=== PATIENT | female | born 1980 | race Caucasian/White ===

== ENCOUNTER 2017-05-18 19:01 | Emergency (ER) | payer OTHER ==
[2017-05-18 19:22] VITALS: BP 149/95; PULSE 90; TEMP 98.2; BMI 41.0
--- NOTE | 2017-05-18 19:28 | PDOC ---
Rapid Medical Evaluation Chief Complaint: Cold Symptoms Time Seen by Provider: 05/18/17 19:27 Medical Evaluation: Allergies Allergy/AdvReac Type Severity Reaction Status Date / Time shellfish derived Allergy Verified 10/19/15 18:31 Vital Signs Temp Pulse Resp BP Pulse Ox 98.2 F 90 20 149/95 99 05/18/17 19:17 05/18/17 19:17 05/18/17 19:17 05/18/17 19:17 05/18/17 19:17 05/18/17 19:28 The patient presents with a chief complaint of: [Cough] I have performed a brief in-person evaluation of this patient. Pertinent physical exam findings: vss, [Lungs clear. I have ordered the following: [None] The patient will proceed to the ED for further evaluation. Discharge Disposition - Diagnosis Cough - Referrals - Patient Instructions - Post Discharge Activity
--- NOTE | 2017-05-18 20:21 | PDOC ---
History of Present Illness - General Chief Complaint: Cold Symptoms Stated Complaint: COUGHING Time Seen by Provider: 05/18/17 19:27 History Source: Patient Exam Limitations: No Limitations - History of Present Illness Initial Comments: 05/18/17 20:24 36-year-old female with a history of asthma presents to the emergency department complaining of rhinorrhea, nasal congestion, intermittent nonproductive cough, postnasal drip without fever, chills, nausea/vomiting, headache, dizziness, lightheadedness, facial pain, earache, sore throat, chest pain, shortness of breath, abdominal pains, flank pains, urinary symptoms. Patient states approximately 8 days ago, she had one day of fever/102.0 but subsided after taken one dose of Tylenol. Timing/Duration: reports: yesterday Associated Symptoms: reports: nasal congestion, nasal drainage Past History - Past Medical History Allergies/Adverse Reactions: Allergies Allergy/AdvReac Type Severity Reaction Status Date / Time shellfish derived Allergy Verified 10/19/15 18:31 Home Medications: Ambulatory Orders Azithromycin [Zithromax -] 250 mg PO UTDICT #6 tab 05/18/17 Asthma: Yes COPD: No - Suicide/Smoking/Psychosocial Hx Smoking History: Current every day smoker Have you smoked in the past 12 months: Yes Number of Cigarettes Smoked Daily: 10 Information on smoking cessation initiated: No Hx Alcohol Use: No Drug/Substance Use Hx: No Substance Use Type: None Review of Systems - Review of Systems Able to Perform ROS?: Yes Comments:: 05/18/17 20:18 CONSTITUTIONAL: +malaise Absent: fever, chills, diaphoresis, generalized weakness, loss of appetite HEENT: +rhinorrhea, nasal congestion Absent: throat pain, throat swelling, difficulty swallowing, mouth swelling, ear pain, eye pain, visual Changes CARDIOVASCULAR: Absent: chest pain, loss of consciousness, palpitations, irregular heart rate, peripheral edema RESPIRATORY: +cough Absent: shortness of breath, dyspnea with exertion, orthopnea, wheezing, stridor , hemoptysis GASTROINTESTINAL: Absent: abdominal pain, abdominal distension, nausea, vomiting, diarrhea, constipation, melena, hematochezia GENITOURINARY: Absent: dysuria, frequency, urgency, hesitancy, hematuria, flank pain, genital pain MUSCULOSKELETAL: Absent: myalgia, arthralgia, joint swelling SKIN: Absent: rash, itching, pallor Is the patient limited [place] proficient: No *Physical Exam - Vital Signs Last Vital Signs Temp Pulse Resp BP Pulse Ox 98.2 F 90 20 149/95 99 05/18/17 19:17 05/18/17 19:17 05/18/17 19:17 05/18/17 19:17 05/18/17 19:17 - Physical Exam Comments: 05/18/17 20:19 GENERAL: Well developed, well nourished. Awake and alert. No acute distress. HEENT: Normocephalic, atraumatic. PERRLA, EOMI. No conjunctival pallor. Sclera are non- icteric. Moist mucous membranes. Oropharynx is clear. NECK: Supple. Full ROM. No JVD. Carotid pulses 2+ and symmetric, without bruits. No thyromegaly. No lymphadenopathy. CARDIOVASCULAR: Regular rate and rhythm. No murmurs, rubs, or gallops. Distal pulses are 2+ and symmetric. PULMONARY: No evidence of respiratory distress. Lungs clear to auscultation bilaterally. No wheezing, rales or rhonchi. ABDOMINAL: Soft. Non-tender. Non-distended. No rebound or guarding. No organomegaly. Normoactive bowel sounds. MUSCULOSKELETAL Normal range of motion at all joints. No bony deformities or tenderness. No CVA tenderness. EXTREMITIES: No cyanosis. No clubbing. No edema. No calf tenderness. SKIN: Warm and dry. Normal capillary refill. No rashes. No jaundice. Medical Decision Making - Medical Decision Making 05/18/17 20:25 36-year-old female with a history of asthma presents to the ER complaining of postnasal drip, nasal congestion, rhinorrhea, cough without fever, chills. Physical exam was consistent with bronchitis. Prescriptions sent to patient's pharmacy for Zithromax pack. Patient advised to take it when symptoms worsen. *DC/Admit/Observation/Transfer Diagnosis at time of Disposition: Cough, Bronchitis - Discharge Dispostion Disposition: HOME Condition at time of disposition: Stable Admit: No - Prescriptions Prescriptions: Azithromycin [Zithromax -] 250 mg PO UTDICT #6 tab - Referrals Referrals: Janie Carmona MD [Primary Care Provider] - - Patient Instructions Printed Discharge Instructions: DI for Acute Bronchitis Additional Instructions: Rest Supportive care Robitussin every 6 hours for cough as needed Follow up with your physician within 48 hours Return to the ER for severe/persistent/worsening symptoms - Post Discharge Activity
== END 2017-05-18 20:24 | disposition home or self-care (01) ==
LOC: JERFT 19:01
DX: J20.9 Acute bronchitis, unspecified (principal)
CPT/HCPCS: 99281-25

== ENCOUNTER 2018-10-18 13:39 | Emergency (ER) | payer OTHER ==
[2018-10-18 13:53] VITALS: BP 143/80; PULSE 90; TEMP 98.6; BMI 45.8
--- NOTE | 2018-10-18 13:53 | PDOC ---
Rapid Medical Evaluation Chief Complaint: Back Pain Time Seen by Provider: 10/18/18 13:48 Medical Evaluation: Allergies Allergy/AdvReac Type Severity Reaction Status Date / Time shellfish derived Allergy Verified 10/19/15 18:31 10/18/18 13:49 I have performed a brief in-person evaluation of this patient. The patient presents with a chief complaint of: obese patient with 2 weeks h/o lower back pain worse when getting up from sitting position. Denies trauma or h/ o back pains. Denies urinary symptoms but report increased bowel movements. Denies radiculopathy. Denies incontinence or saddle paresthesia. LMP 5 days ago. Pertinent physical exam findings: mild TTP over lower sacrum and right paracervical muscle of lumber spine I have ordered the following: UA, UHCG, UCx The patient will proceed to the ED for further evaluation Discharge Disposition - Diagnosis Lumbago Qualifiers: Chronicity: acute Back pain laterality: right Sciatica presence: without sciatica Qualified Code(s): M54.5 - Low back pain - Discharge Dispostion Condition at time of disposition: Stable - Referrals - Patient Instructions - Post Discharge Activity
[2018-10-18] MEDS ORDERED: KETOROLAC TROMETHAMINE 60 MG/2 ML VIAL IM ONE (14:05)
[2018-10-18] MEDS ORDERED: KETOROLAC TROMETHAMINE 60 MG/2 ML VIAL ONE (14:08)
--- NOTE | 2018-10-18 14:10 | PDOC ---
History of Present Illness - General Chief Complaint: Back Pain Stated Complaint: LWR BACK PAIN Time Seen by Provider: 10/18/18 13:48 History Source: Patient - History of Present Illness Occurred: reports: other Pain Location: reports: back Past History - Past Medical History Allergies/Adverse Reactions: Allergies Allergy/AdvReac Type Severity Reaction Status Date / Time shellfish derived Allergy Verified 10/19/15 18:31 Home Medications: Ambulatory Orders Albuterol Sulfate [Albuterol Sulfate Hfa] 8.5 gm IH PRN PRN 08/31/18 Cyclobenzaprine HCl [Flexeril 10 mg] 10 mg PO TID #9 tablet 10/18/18 Ibuprofen [Motrin -] 800 mg PO Q6H #30 tablet 10/18/18 Anemia: No Asthma: Yes Cancer: No Cardiac Disorders: No CVA: No COPD: No CHF: No Dementia: No Diabetes: No GI Disorders: No Disorders: No HTN: No Hypercholesterolemia: No Liver Disease: No Seizures: No Thyroid Disease: No - Suicide/Smoking/Psychosocial Hx Smoking History: Current every day smoker Have you smoked in the past 12 months: No Number of Cigarettes Smoked Daily: 3 Information on smoking cessation initiated: No Hx Alcohol Use: No Drug/Substance Use Hx: No Substance Use Type: None Hx Substance Use Treatment: No Review of Systems - Review of Systems Constitutional: No: Chills, Fever ABD/GI: No: Nausea, Vomiting Musculoskeletal: Yes: Back Pain Neurological: No: Numbness, Tingling, Weakness *Physical Exam - Vital Signs Last Vital Signs Temp Pulse Resp BP Pulse Ox 98.6 F 90 20 143/80 100 10/18/18 13:48 10/18/18 13:48 10/18/18 13:48 10/18/18 13:48 10/18/18 13:48 - Physical Exam General Appearance: Yes: Appropriately Dressed. No: Apparent Distress HEENT: positive: Normal Voice Neck: positive: Supple Respiratory/Chest: negative: Respiratory Distress Gastrointestinal/Abdominal: positive: Soft. negative: Tender Musculoskeletal: negative: CVA Tenderness, Vertebral Tenderness Integumentary: positive: Dry, Warm Neurologic: positive: Fully Oriented, Alert, Normal Mood/Affect Medical Decision Making - Medical Decision Making 10/18/18 15:05 38-year-old morbidly obese female, renal stone, here with back pain. Patient states for the past 2-1/2 weeks, she has had non-radiating, sharp lower back pain that worsens when she is sitting or standing for long periods of time. No sensory changes, LE weakness, saddle anesthesia or bowel or bladder incontinence. No recent trauma. Denies flank pain, dysuria, hematuria, nausea , vomiting, fever or chills. Taking [id number] meds with no relief. No prior history of back pain. Does not feel like her renal colic see exam M/l MSK pain, obesity might be contributing factor No red flags in ER -UA/upreg neg -dose of toradol here -dc w/ pain control and PMD f/u *DC/Admit/Observation/Transfer Diagnosis at time of Disposition: Low back pain Qualifiers: Chronicity: acute Back pain laterality: right Sciatica presence: without sciatica Qualified Code(s): M54.5 - Low back pain - Discharge Dispostion Disposition: HOME Condition at time of disposition: Improved - Prescriptions Prescriptions: Cyclobenzaprine HCl [Flexeril 10 mg] 10 mg PO TID #9 tablet Ibuprofen [Motrin -] 800 mg PO Q6H #30 tablet - Referrals Referrals: Janie Carmona MD [Primary Care Provider] - - Patient Instructions Printed Discharge Instructions: DI for Low Back Pain Additional Instructions: Please take medications as prescribed and follow-up with your doctor - Post Discharge Activity Forms/Work/School Notes: Back to Work
[2018-10-18 14:54] LABS: HCG,QUALITATIVE URINE Negative
[2018-10-18 15:01] LABS: PH,URINE 5.5 (5.0-8.0); URINE APPEARANCE CLEAR; URINE BILIRUBIN NEGATIVE (NEGATIVE); URINE COLOR YELLOW; URINE GLUCOSE (UA) NEGATIVE (NEGATIVE); URINE KETONE NEGATIVE (NEGATIVE); URINE LEUK ESTERASE NEGATIVE (NEGATIVE); URINE NITRITE NEGATIVE (NEGATIVE); URINE PROTEIN NEGATIVE (NEGATIVE); URINE UROBILINOGEN 0.2 mg/dL (0.2-1.0)
== END 2018-10-18 15:17 | disposition home or self-care (01) ==
LOC: JERFT 13:39
PROC: 3E0233Z Introduction of Anti-inflammatory into Muscle, Percutaneous Approach (ICD-10-PCS; principal; 2018-10-18)
DX: M54.5 Low back pain (principal); J45.909 Unspecified asthma, uncomplicated; F17.210 Nicotine dependence, cigarettes, uncomplicated; Z87.442 Personal history of urinary calculi
CPT/HCPCS: 81003; 84703; 87086; 96372; 99281-25

== ENCOUNTER 2018-12-16 21:47 | Emergency (ER) | payer OTHER ==
[2018-12-16 22:21] VITALS: BP 117/91; PULSE 105; TEMP 98.6; BMI 46.6
--- NOTE | 2018-12-17 00:28 | PDOC ---
History of Present Illness - General Chief Complaint: Injury Stated Complaint: FALL Time Seen by Provider: 12/17/18 00:27 History Source: Patient Exam Limitations: No Limitations - History of Present Illness Initial Comments: 12/17/18 04:01 Maryuri Schmitt is a 38yF w PMHx HTN presenting w L foot pain. Last night, was dancing, tripped and twisted L foot while falling down. Denies LOC, head trauma. Subsequent L foot swelling, tenderness especially at 5th MTP joint of L foot. Able to ambulate after fall. Denies fever, headache, chest/AB pain, urinary/bowel changes. Past History - Past Medical History Allergies/Adverse Reactions: Allergies Allergy/AdvReac Type Severity Reaction Status Date / Time shellfish derived Allergy Verified 12/16/18 22:21 Home Medications: Ambulatory Orders Albuterol Sulfate [Albuterol Sulfate Hfa] 8.5 gm IH PRN PRN 08/31/18 Cyclobenzaprine HCl [Flexeril 10 mg] 10 mg PO TID #9 tablet 10/18/18 Ibuprofen [Motrin -] 800 mg PO Q6H #30 tablet 10/18/18 Anemia: No Asthma: Yes Cancer: No Cardiac Disorders: No CVA: No COPD: No CHF: No Dementia: No Diabetes: No GI Disorders: No Disorders: No HTN: No Hypercholesterolemia: No Liver Disease: No Seizures: No Thyroid Disease: No - Suicide/Smoking/Psychosocial Hx Smoking History: Never smoked Have you smoked in the past 12 months: No Number of Cigarettes Smoked Daily: 3 Information on smoking cessation initiated: No Hx Alcohol Use: Yes (socia) Drug/Substance Use Hx: No Substance Use Type: None Hx Substance Use Treatment: No Review of Systems - Review of Systems Constitutional: No: Chills, Fever HEENTM: No: Eye Pain, Nose Pain, Throat Pain Respiratory: No: Cough, Shortness of Breath Cardiac (ROS): No: Chest Pain, Irregular Heart Rate, Syncope ABD/GI: No: Abdominal Distended, Constipated, Diarrhea, Nausea, Vomiting : No: Burning, Dysuria Musculoskeletal: No: Back Pain, Joint Pain, Muscle Pain, Muscle Weakness Integumentary: No: Bruising, Flushing, Lesions Neurological: No: Headache, Paresthesia, Tingling, Tremors Psychiatric: No: Anxiety, Depression Endocrine: No: Excessive Sweating, Intolerance to Cold, Intolerance to Heat Hematologic/Lymphatic: No: Anemia, Blood Clots, Easy Bleeding *Physical Exam - Vital Signs Last Vital Signs Temp Pulse Resp BP Pulse Ox 98.6 F 105 H 18 117/91 100 12/16/18 22:17 12/16/18 22:17 12/16/18 22:17 12/16/18 22:17 12/16/18 22:17 - Physical Exam General Appearance: Yes: Nourished, Appropriately Dressed, Moderate Distress HEENT: positive: EOMI, XAVI, Normal Voice, Hearing Grossly Normal. negative: Scleral Icterus (R), Scleral Icterus (L) Respiratory/Chest: positive: Lungs Clear, Normal Breath Sounds. negative: Chest Tender, Respiratory Distress, Crackles, Rales, Rhonchi, Stridor Cardiovascular: positive: Regular Rhythm, Regular Rate, S1, S2. negative: Edema , Murmur Musculoskeletal: positive: Normal Inspection Extremity: positive: Normal Capillary Refill, Other (L foot +1 pedal edema, tenderness over dorsal aspect of L foot, no tenderness over lateral/medial malleoli. Minimal ecchymosis. No warmth. No skin breakage. Limited toe ROM d/t pain. 3+ DP pulses bilaterally. Equal sensation nazanin. 5/5 strength bilaterally) Integumentary: positive: Normal Color Neurologic: positive: fluoroscope operator II-XII NML intact, Fully Oriented, Alert, Normal Mood/ Affect, Normal Response, Respond to painful stimul. negative: Sensory Deficit, Confused, Disoriented Medical Decision Making - Medical Decision Making 12/17/18 01:04 tylenol for pain Maryuri Schmitt is a 38yF w PMHx HTN presenting w L foot pain s/p mechanical fall. Neurovascular intact. L foot/ankle XR did not show any fracture/subluxation. Given tylenol for pain, tyson wrapped and placed foot in boot. D/c home w RICE instructions, ortho f/u *DC/Admit/Observation/Transfer Diagnosis at time of Disposition: Foot pain, left Fall Qualifiers: Encounter type: initial encounter Qualified Code(s): W19.XXXA - Unspecified fall, initial encounter - Discharge Dispostion Disposition: HOME Condition at time of disposition: Good Decision to Admit order: No - Referrals Referrals: Janie Carmona MD [Primary Care Provider] - Favian Jefferson DO [Staff Physician] - - Patient Instructions Printed Discharge Instructions: DI for Foot Pain Additional Instructions: You were seen for left foot pain. Your x-ray did not show any fracture or dislocation. You were given pain medication, wrapped your foot, and given a surgical boot and crutches. Make an appointment with your primary care doctor or Dr Jefferson orthopedics to follow up. Please wrap your foot with tyson bandage, ice it every 15 minutes, elevate your foot when possible, and take tylenol and ibuprofen for pain. Come back to the ED if you have worsening pain, cannot walk, or have numbness. - Post Discharge Activity
[2018-12-17] MEDS ORDERED: ACETAMINOPHEN 500 MG TABLET (FP) PO ONE (01:00)
[2018-12-17] MEDS ORDERED: ACETAMINOPHEN 325 MG TABLET (FP) ONE (01:16)
--- NOTE | 2018-12-17 01:16 | PDOC ---
Attending Attestation - Resident Resident Name: Anish Cole - ED Attending Attestation I have performed the following: I have examined & evaluated the patient, The case was reviewed & discussed with the resident, I agree w/resident's findings & plan, Exceptions are as noted - HPI HPI: 12/17/18 01:11 38yo female with L foot and ankle inversion injury tonight. Pt with swelling and ecchymosis across dorsum of foot. Pt states pain with ambulation. No ankle ttp. No leg pain. Pt admits to drinking earlier tonight - 3 drinks and was out dancing when this happened. Pt denies hitting her head or loc. Pt denies all other complaints. FDLMP - day weekend - Physicial Exam PE: 12/17/18 01:13 Gen: aaox3, nad heart: +s1s2 reg lungs: cta b/l abd: soft, nt/nd, obese ext: no calf ttp, L foot dorsum with ecchymosis and swelling across dorsum of the foot with ttp over digits 2-5 metatarsals. No ttp over b/l malleolus. FROM of the ankle without pain. pedal pulses intact, sensation intact - Medical Decision Making 12/17/18 01:14 a/p: 38yo female with foot injury while dancing -swelling and ecchymosis -xray ordered does not show acute fx -ice bag placed, will add tyson wrap, will place in surgical shoe with crutches -pt will need orthopedic follow up -tylenol ordered -discussed xray findings with the patient -pt stable for dc to home and follow up with orthopedics
== END 2018-12-17 01:50 | disposition home or self-care (01) ==
LOC: JER 21:47
DX: M79.672 Pain in left foot (principal); X58.XXXA Exposure to other specified factors, initial encounter; Y93.41 Activity, dancing; Y92.89 Other specified places as the place of occurrence of the external cause; I10 Essential (primary) hypertension
CPT/HCPCS: 73610-TC-LT-FY; 73630-TC-LT; 99282-25

== ENCOUNTER 2019-12-25 01:05 | Inpatient (IN) | payer OTHER ==
--- OUTSIDE RECORDS SUMMARY | 2019-12-25 01:25 | XMS ---
:1980 Author Organization [facility] Care Team Providers Name Role Phone Debi Jaquez MD Unavailable Unavailable French Lambert MD Unavailable Unavailable Lise Sauer NP Unavailable Unavailable HELLEN MCMAHAN Unavailable Unavailable Esdras Barboza MD Unavailable Unavailable Sandra Valle MD Unavailable Unavailable Re-disclosure Warning The records that you are about to access may contain information from federally- assisted alcohol or drug abuse programs. If such information is present, then the following federally mandated warning applies: This information has been disclosed to you from records protected by federal confidentiality rules (42 CFR part 2). The federal rules prohibit you from making any further disclosure of this information unless further disclosure is expressly permitted by the written consent of the person to whom it pertains or as otherwise permitted by 42 CFR part 2. A general authorization for the release of medical or other information is NOT sufficient for this purpose. The Federal rules restrict any use of the information to criminally investigate or prosecute any alcohol or drug abuse patient.The records that you are about to access may contain highly sensitive health information, the redisclosure of which is protected by Article 27-F of the [facility] Public [facility] law. If you continue you may haveaccess to information: Regarding HIV / AIDS; Provided by facilities licensed or operated by the [facility] Office of Mental Health; or Provided by the [facility] Office for People With Developmental Disabilities. If such information is present, then the following [facility] mandated warning applies: This information has been disclosed to you from confidential records which are protected by state law. State law prohibits you from making any further disclosure of this information without the specific written consent of the person to whom it pertains, or as otherwise permitted by law. Any unauthorized further disclosure in violation of state law may result in a fine or custodial sentence or both. A general authorization for the release of medical or other information is NOT sufficient authorization for further disclosure. Advance Directives Directive Description Ct Technician Pediatric Medical Assistant Status Observation Data S ource(s) Description Advance No completed [place] [facility] Advance No completed [place] [facility] Advance No completed [place] [facility] Allergies and Adverse Reactions Type Description Substance Reaction Status Data Source(s ) Food allergy shellfish derived shellfish FACE SWELLING-I [facility] Hospital Propensity to shellfish No known shortness of Active eCW3 ([facility] son adverse allergies breath [facility] reactions (situation) Care) Propensity to shellfish No known shortness of Active eCW3 ([facility] son adverse allergies breath [facility] reactions (situation) Care) Propensity to shellfish No known shortness of Active eCW3 ([facility] son adverse allergies breath [facility] reactions (situation) Care) Propensity to shellfish No known shortness of Active eCW3 ([facility] son adverse allergies breath [facility] reactions (situation) Care) Propensity to shellfish No known shortness of Active eCW3 ([facility] son adverse allergies breath [facility] reactions (situation) Care) Propensity to shellfish No known shortness of Active eCW3 ([facility] son adverse allergies breath [facility] reactions (situation) Care) Propensity to shellfish No known shortness of Active eCW3 ([facility] son adverse allergies breath [facility] reactions (situation) Care) Propensity to shellfish No known shortness of Active eCW3 ([facility] son adverse allergies breath [facility] reactions (situation) Care) Propensity to shellfish No known shortness of Active eCW3 ([facility] son adverse allergies breath [facility] reactions (situation) Care) Propensity to shellfish No known shortness of Active eCW3 ([facility] son adverse allergies breath [facility] reactions (situation) Care) Propensity to shellfish No known shortness of Active eCW3 ([facility] son adverse allergies breath [facility] reactions (situation) Care) Propensity to shellfish No known shortness of Active eCW3 ([facility] son adverse allergies breath [facility] reactions (situation) Care) Propensity to shellfish No known shortness of Active eCW3 ([facility] son adverse allergies breath [facility] reactions (situation) Care) Encounters Encounter Providers Location Date Indications Data Source(s ) Outpatient Attender: Esdras 05/19/2019 CHOLECYSTITIS Yogi Barboza MD 07:30:00 AM Hospital EST - 05/19/2019 07:08:00 AM EST CHOLECYSTITIS Patient discharged. 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 Outpatient [facility] 12/23/2018 eCW3 ([facility] on Care Clinic 12:00:00 AM EDT - [facility] A28 12/23/2018 Care) 12:00:00 AM EDT Inpatient Attender: 12/20/2018 MORBID OBESITY Yogi Barboza 09:15:00 AM EDT - [place] [place] MDAdmitter: 12/28/2018 Esdras Barboza 05:26:00 PM EDT MD MORBID OBESITY Patient discharged. 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 Subsequent [facility] 10/28/2018 12:00:00 e CW3 ([facility] A28 AM EDT - 10/28/2018 [facility] Nutrition 12:00:00 AM EDT Care) Outpatient [facility] 10/27/2018 12:00:00 e CW3 ([facility] A28 AM EDT - 10/27/2018 [facility] 12:00:00 AM EDT Care) A28-Est Therapy [facility] 10/04/2018 12:00:00 eCW3 ([facility] A28 AM EDT - 10/04/2018 [facility] Evaluation & Mgmt 12:00:00 AM EDT Ca re) 20-30 Min Subsequent [facility] 10/01/2018 12:00:00 e CW3 ([facility] A28 AM EDT - 10/01/2018 [facility] Nutrition 12:00:00 AM EDT Care) Outpatient [facility] 09/07/2018 12:00:00 e CW3 ([facility] A28 AM EDT - 09/07/2018 [facility] 12:00:00 AM EDT Care) Subsequent [facility] 09/03/2018 12:00:00 e CW3 ([facility] A28 AM EDT - 09/03/2018 [facility] Nutrition 12:00:00 AM EDT Care) Outpatient Admitter: 07/26/2018 10:21:00 [facility] AM EDT Medical Susannah De Oliveira Outpatient Admitter: 07/26/2018 12:00:00 [facility] AM EDT Medical Susannah De Oliveira Subsequent [facility] 07/22/2018 12:00:00 e CW3 ([facility] A28 AM EDT - 07/22/2018 [facility] Nutrition 12:00:00 AM EDT Care) Subsequent [facility] 06/17/2018 12:00:00 e CW3 ([facility] A28 AM EDT - 06/17/2018 [facility] Nutrition 12:00:00 AM EDT Care) (NBillable) [facility] 06/07/2018 12:00:00 eCW3 ([facility] A28 AM EST - 06/07/2018 [facility] g/Care Management 12:00:00 AM EST Ca re) (NBillable) [facility] 06/04/2018 12:00:00 eCW3 ([facility] A28 AM EST - 06/04/2018 [facility] g/Care Management 12:00:00 AM EST Ca re) (NBillable) [facility] 05/28/2018 12:00:00 eCW3 ([facility] A28 AM EST - 05/28/2018 [facility] g/Care Management 12:00:00 AM EST Ca re) New Therapy, 30 [facility] 05/21/2018 12:00:00 eCW3 ([facility] A28 AM EST - 05/21/2018 [facility] 12:00:00 AM EST Care) Functional Status Immunizations Vaccine Date Status Description Data Source(s) New in 2011. IIV4 03/09/2018 completed eCW3 ([facility] 03:21:00 PM [facility]) IIV3. This is one of 12/19/2016 completed eCW3 ([facility] [place] two codes replacing CVX 09:00:00 AM EDT [facility]) 15, which is being retired. IIV3. This vaccine code 02/01/2015 completed eCW3 ([facility] [place] is one of two which 12:03:[address] [facility]) replace CVX 15, influenza, split virus. IIV3. This is one of 01/07/2013 completed eCW3 ([facility] two codes replacing CVX 02:05:53 PM EDT [facility]) 15, which is being retired. Medications Medication Brand Start Product Dose Route Administrative Pharmacy [facility] Indications Reaction Description Data Name Date Form Instructions Instructions Source(s) Nystatin Nystat 08/01/ 1.0 active Nystatin e CW3 482646 in 2019 {appl 250663 ([facility] UNT/ML 602076 12:00: icati UNIT/GM [facility] UNIT/G 00 AM on} Health Cream [facility]) Nystatin 913177 UNIT/GM Acetaminoph Oxycod 05/19/ TABLET 1 ORAL active [place] en 325 MG / one/Ac 2019 {[place] s Oxycodone etamin 07:44: ule} Hospit al Hydrochlori ophen 00 AM de 5 MG EST Oral Tablet [Percocet] Oxycodone/A cetaminophe n Albuterol Albute 04/29/ 3.0 active Albuterol eCW3 0.83 MG/ML 2019 {ml_a Sulfate (2.5 ([facility] Inhalant Sulfat 12:00: s_nee MG/3ML) Va er Solution e (2.5 00 AM ded} 0.083% Health Albuterol MG/3ML EST Care) Sulfate ) (2.5 0.083% MG/3ML) 0.083% Albuterol Albute 3.0 active Albuterol eCW3 0.83 MG/ML rol 2020 {ml_a Sulfate (2.5 ([facility] Inhalant Sulfat 12:00: s_nee MG/3ML) Va er Solution e (2.5 00 AM ded} 0.083% Health Albuterol MG/3ML EST Care) Sulfate ) (2.5 0.083% MG/3ML) 0.083% Albuterol Albute .0 active Albuterol eCW3 0.83 MG/ML rol 2020 {ml_a Sulfate (2.5 ([facility] Inhalant Sulfat 12:00: s_nee MG/3ML) Va er Solution e (2.5 00 AM ded} 0.083% Health Albuterol MG/3ML EST Care) Sulfate ) (2.5 0.083% MG/3ML) 0.083% Albuterol Albute .0 active Albuterol eCW3 0.83 MG/ML rol 2020 {ml_a Sulfate (2.5 ([facility] Inhalant Sulfat 12:00: s_nee MG/3ML) Va er Solution e (2.5 00 AM ded} 0.083% Health Albuterol MG/3ML EST Care) Sulfate ) (2.5 0.083% MG/3ML) 0.083% Albuterol Albute 3.0 active Albuterol eCW3 0.83 MG/ML rol 2020 {ml_a Sulfate (2.5 ([facility] Inhalant Sulfat 12:00: s_nee MG/3ML) Va er Solution e (2.5 00 AM ded} 0.083% Health Albuterol MG/3ML EST Care) Sulfate ) (2.5 0.083% MG/3ML) 0.083% Albuterol Albute 3.0 active Albuterol eCW3 0.83 MG/ML rol 2019 {ml_a Sulfate (2.5 ([facility] Inhalant Sulfat 12:00: s_nee MG/3ML) Va er Solution e (2.5 00 AM ded} 0.083% Health Albuterol MG/3ML EST Care) Sulfate ) (2.5 0.083% MG/3ML) 0.083% Albuterol Albute 3.0 active Albuterol eCW3 0.83 MG/ML rol 2019 {ml_a Sulfate (2.5 ([facility] Inhalant Sulfat 12:00: s_nee MG/3ML) Va er Solution e (2.5 00 AM ded} 0.083% Health Albuterol MG/3ML EST Care) Sulfate ) (2.5 0.083% MG/3ML) 0.083% tramadol Tramad 12/28/ TABLET 50 mg ORAL complet [facility] allan hydrochlori ol Hcl 2018 ed [place] de 50 MG 11:07: Hospital Oral Tablet 00 AM Tramadol EDT Hcl tramadol Tramad 12/28/ TABLET 50 mg ORAL active Wh ite hydrochlori ol Hcl 2019 [place] de 50 MG 11:07: Hospital Oral Tablet 00 AM Tramadol EDT Hcl tramadol Tramad 12/28/ TABLET 50 mg ORAL complet [facility] [place] hydrochlori ol Hcl 2018 ed [place] de 50 MG 11:07: Hospital Oral Tablet 00 AM Tramadol EDT Hcl 0.4 ML Enoxap 12/28/ INJECTIO 40 mg SUBCUT complet [place] Enoxaparin frankie 2018 N ANEOUS ed [place] sodium 100 Sodium 11:03: [facility] [place] MG/ML 00 AM Prefilled EDT Syringe [Lovenox] Enoxaparin Sodium 0.4 ML Enoxap 12/28/ INJECTIO 40 mg SUBCUT active [place] Enoxaparin frankie 2018 N ANEOUS [place] sodium 100 Sodium 11:03: [facility] [place] MG/ML 00 AM Prefilled EDT Syringe [Lovenox] Enoxaparin Sodium Ondansetron Ondans 12/28/ TABLET 4 mg ORAL complet [place] 4 MG etron 2018 ed [place] Disintegrat Hcl 11:03: Hospit al ing Oral 00 AM Tablet EDT Ondansetron Hcl Ondansetron Ondans 12/28/ TABLET 4 mg ORAL active [place] 4 MG etron 2018 [place] Disintegrat Hcl 11:03: Hospit al ing Oral 00 AM Tablet EDT Ondansetron Hcl 0.4 ML Enoxap 12/28/ INJECTIO 40 mg SUBCUT complet [place] Enoxaparin frankie 2019 N ANEOUS ed [place] sodium 100 Sodium 11:03: [facility] [place] MG/ML 00 AM Prefilled EDT Syringe [Lovenox] Enoxaparin Sodium Ondansetron Ondans 12/28/ TABLET 4 mg ORAL complet [place] 4 MG etron 2019 ed [place] Disintegrat Hcl 11:03: Hospit al ing Oral 00 AM Tablet EDT Ondansetron Hcl Ibuprofen Ibupro 12/23/ active Ibuprofen eCW3 600 MG Oral fen 2019 600 MG ([place] Tablet 600 MG 12:00: [facility] 00 AM Health EDT Care) Ibuprofen Ibupro 12/23/ active Ibuprofen eCW3 600 MG Oral fen 2019 600 MG ([place] Tablet 600 MG 12:00: [facility] 00 AM Health EDT Care) Ibuprofen Ibupro 12/23/ active Ibuprofen eCW3 600 MG Oral fen 2019 600 MG ([place] Tablet 600 MG 12:00: [facility] 00 AM Health EDT Care) Ibuprofen Ibupro 12/23/ active Ibuprofen eCW3 600 MG Oral fen 2019 600 MG ([place] Tablet 600 MG 12:00: [facility] 00 AM Health EDT Care) Ibuprofen Ibupro 12/23/ active Ibuprofen eCW3 600 MG Oral fen 2019 600 MG ([place] Tablet 600 MG 12:00: [facility] 00 AM Health EDT Care) Ibuprofen Ibupro 12/23/ active Ibuprofen eCW3 600 MG Oral fen 2019 600 MG ([place] Tablet 600 MG 12:00: [facility] 00 AM Health EDT Care) Ibuprofen Ibupro 12/23/ active Ibuprofen eCW3 600 MG Oral fen 2019 600 MG ([place] Tablet 600 MG 12:00: [facility] 00 AM Health EDT Care) Ibuprofen Ibupro 12/23/ active Ibuprofen eCW3 600 MG Oral fen 2019 600 MG ([place] Tablet 600 MG 12:00: [facility] 00 AM Health EDT Care) 200 ACTUAT Ventol 07/25/ 2.0 active Ventolin HFA eCW3 Albuterol in HFA 2018 {puff 108 (90 ([facility] son 0.09 108 12:00: s_as_ Base) [facility] MG/ACTUAT (90 00 AM neede MCG/ACT Healt h Metered Base) EDT d} Care) Dose MCG/AC Inhaler T [Ventolin] Ventolin HFA 108 (90 Base) MCG/ACT 200 ACTUAT Ventol 2.0 active Ventolin HFA eCW3 Albuterol in HFA 2018 {puff 108 (90 ([place] son 0.09 108 12:00: s_as_ Base) [facility] MG/ACTUAT (90 00 AM neede MCG/ACT Healt h Metered Base) EDT d} Care) Dose MCG/AC Inhaler T [Ventolin] Ventolin HFA 108 (90 Base) MCG/ACT 200 ACTUAT Ventol 2.0 active Ventolin HFA eCW3 Albuterol in HFA 2018 {puff 108 (90 ([place] son 0.09 108 12:00: s_as_ Base) [facility] MG/ACTUAT (90 00 AM neede MCG/ACT Healt h Metered Base) EDT d} Care) Dose MCG/AC Inhaler T [Ventolin] Ventolin HFA 108 (90 Base) MCG/ACT 200 ACTUAT Ventol 2.0 active Ventolin HFA eCW3 Albuterol in HFA 2018 {puff 108 (90 ([place] son 0.09 108 12:00: s_as_ Base) [facility] MG/ACTUAT (90 00 AM neede MCG/ACT Healt h Metered Base) EDT d} Care) Dose MCG/AC Inhaler T [Ventolin] Ventolin HFA 108 (90 Base) MCG/ACT 200 ACTUAT Ventol 2.0 active Ventolin HFA eCW3 Albuterol in HFA 2018 {puff 108 (90 ([place] son 0.09 108 12:00: s_as_ Base) [facility] MG/ACTUAT (90 00 AM neede MCG/ACT Healt h Metered Base) EDT d} Care) Dose MCG/AC Inhaler T [Ventolin] Ventolin HFA 108 (90 Base) MCG/ACT 200 ACTUAT Ventol 2.0 active Ventolin HFA eCW3 Albuterol in HFA 2018 {puff 108 (90 ([place] son 0.09 108 12:00: s_as_ Base) [facility] MG/ACTUAT (90 00 AM neede MCG/ACT Healt h Metered Base) EDT d} Care) Dose MCG/AC Inhaler T [Ventolin] Ventolin HFA 108 (90 Base) MCG/ACT 200 ACTUAT Ventol 07/25/ 2.0 active Ventolin HFA eCW3 Albuterol in HFA 2018 {puff 108 (90 ([place] son 0.09 108 12:00: s_as_ Base) [facility] MG/ACTUAT (90 00 AM neede MCG/ACT Healt h Metered Base) EDT d} Care) Dose MCG/AC Inhaler T [Ventolin] Ventolin HFA 108 (90 Base) MCG/ACT EpiPen UNK 02/10/ suspend EpiPen 2-Marin eCW3 2-Marin 0.3 2013 ed 0.3 MG/0.3ML ([facility] MG/0.3ML 12:00: (1:1000) [facility] (1:1000) 00 AM Health EST Care) EpiPen UNK 02/10/ suspend EpiPen 2-Marin eCW3 2-Marin 0.3 2012 ed 0.3 MG/0.3ML ([facility] MG/0.3ML 12:00: (1:1000) [facility] (1:1000) 00 AM Health EST Care) EpiPen UNK 02/10/ suspend EpiPen 2-Marin eCW3 2-Marin 0.3 2013 ed 0.3 MG/0.3ML ([facility] MG/0.3ML 12:00: (1:1000) [facility] (1:1000) 00 AM Health EST Care) EpiPen UNK 02/10/ suspend EpiPen 2-Marin eCW3 2-Marin 0.3 2013 ed 0.3 MG/0.3ML ([facility] MG/0.3ML 12:00: (1:1000) [facility] (1:1000) 00 AM Health EST Care) EpiPen UNK 02/10/ suspend EpiPen 2-Marin eCW3 2-Marin 0.3 2013 ed 0.3 MG/0.3ML ([facility] MG/0.3ML 12:00: (1:1000) [facility] (1:1000) 00 AM Health EST Care) EpiPen UNK 02/10/ suspend EpiPen 2-Marin eCW3 2-Marin 0.3 2013 ed 0.3 MG/0.3ML ([facility] MG/0.3ML 12:00: (1:1000) [facility] (1:1000) 00 AM Health EST Care) EpiPen UNK 02/10/ suspend EpiPen 2-Marin eCW3 2-Marin 0.3 2012 ed 0.3 MG/0.3ML ([facility] MG/0.3ML 12:00: (1:1000) [facility] (1:1000) 00 AM Health EST Care) EpiPen UNK 02/10/ suspend EpiPen 2-Marin eCW3 2-Marin 0.3 2012 ed 0.3 MG/0.3ML (H [facility] MG/0.3ML 12:00: (1:1000) [facility] (1:1000) 00 AM Health EST Care) EpiPen UNK 02/10/ suspend EpiPen 2-Marin eCW3 2-Marin 0.3 2012 ed 0.3 MG/0.3ML ([facility] MG/0.3ML 12:00: (1:1000) [facility] (1:1000) 00 AM Health EST Care) EpiPen UNK 02/10/ suspend EpiPen 2-Marin eCW3 2-Marin 0.3 2012 ed 0.3 MG/0.3ML ([facility] MG/0.3ML 12:00: (1:1000) [facility] (1:1000) 00 AM Health EST Care) EpiPen UNK 02/10/ suspend EpiPen 2-Marin eCW3 2-Marin 0.3 2012 ed 0.3 MG/0.3ML ([facility] MG/0.3ML 12:00: (1:1000) [facility] (1:1000) 00 AM Health EST Care) EpiPen UNK 02/10/ suspend EpiPen 2-Marin eCW3 2-Marin 0.3 2012 ed 0.3 MG/0.3ML (H ud[facility] MG/0.3ML 12:00: (1:1000) [facility] (1:1000) 00 AM Health EST Care) EpiPen UNK 02/10/ suspend EpiPen 2-Marin eCW3 2-Marin 0.3 2012 ed 0.3 MG/0.3ML ([facility] MG/0.3ML 12:00: (1:1000) [facility] (1:1000) 00 AM Health EST Care) Nebulizer UNK 01/07/ suspend Nebulizer eCW3 2012 ed ([facility] 12:00: [facility] 00 AM Health EDT Care) Nebulizer UNK 01/07/ suspend Nebulizer eCW3 2012 ed ([facility] 12:00: [facility] 00 AM Health EDT Care) Nebulizer UNK 01/07/ suspend Nebulizer eCW3 2012 ed ([facility] 12:00: [facility] 00 AM Health EDT Care) Nebulizer UNK 01/07/ suspend Nebulizer eCW3 2012 ed ([place] 12:00: [facility] 00 AM Health EDT Care) Albuterol Albute 2.0 suspend Albutero l eCW3 Sulfate HFA rol 2013 {puff ed Sulfate HFA ([facility] 108 (90 Sulfat 12:00: s} 108 (90 [facility] Base) e HFA 00 AM Base) Health MCG/ACT 108 EDT MCG/ACT Care) (90 Base) MCG/AC T Albuterol Albute 2.0 suspend Albutero l eCW3 Sulfate HFA rol 2013 {puff ed Sulfate HFA ([facility] 108 (90 Sulfat 12:00: s} 108 (90 [facility] Base) e HFA 00 AM Base) Health MCG/ACT 108 EDT MCG/ACT Care) (90 Base) MCG/AC T Albuterol Albute 2.0 suspend Albutero l eCW3 Sulfate HFA rol 2013 {puff ed Sulfate HFA ([facility] 108 (90 Sulfat 12:00: s} 108 (90 [facility]) e HFA 00 AM Base) Health MCG/ACT 108 EDT MCG/ACT Care) (90 Base) MCG/AC T Albuterol UNK 2.0 suspend Albuterol eCW3 Sulfate HFA 2013 {puff ed Sulfate HFA ([facility] 108 (90 12:00: s} 108 (90 [facility]) 00 AM Base) Health MCG/ACT EDT MCG/ACT Care) Nebulizer UNK 01/07/ suspend Nebulizer eCW3 2012 ed ([place] 12:00: [facility] 00 AM Health EDT Care) Albuterol UNK 2.0 suspend Albuterol eCW3 Sulfate HFA 2012 {puff ed Sulfate HFA ([facility] 108 (90 12:00: s} 108 (90 [facility]) 00 AM Base) Health MCG/ACT EDT MCG/ACT Care) Nebulizer UNK 01/07/ suspend Nebulizer eCW3 2012 ed ([facility] 12:00: [facility] 00 AM Health EDT Care) Nebulizer UNK 01/07/ suspend Nebulizer eCW3 2012 ed ([place] 12:00: [facility] 00 AM Health EDT Care) 200 ACTUAT Albute 2.0 suspend Albuter ol eCW3 Albuterol rol 2012 {puff ed Sulfate HFA (H ud[facility] 0.09 Sulfat 12:00: s} 108 (90 [facility] MG/ACTUAT e HFA 00 AM Base) Health Metered 108 EDT MCG/ACT Care) Dose (90 Inhaler Base) Albuterol MCG/AC Sulfate HFA T 108 (90 Base) MCG/ACT Albuterol Albute 2.0 suspend Albutero l eCW3 Sulfate HFA rol 2013 {puff ed Sulfate HFA ([facility] 108 (90 Sulfat 12:00: s} 108 (90 [facility]) e HFA 00 AM Base) Health MCG/ACT 108 EDT MCG/ACT Care) (90 Base) MCG/AC T Albuterol UNK 2.0 suspend Albuterol eCW3 Sulfate HFA 2012 {puff ed Sulfate HFA ([facility] 108 (90 12:00: s} 108 (90 [facility]) 00 AM Base) Health MCG/ACT EDT MCG/ACT Care) Albuterol Albute 2.0 suspend Albutero l eCW3 Sulfate HFA rol 2012 {puff ed Sulfate HFA ([facility] 108 (90 Sulfat 12:00: s} 108 (90 [facility]) e HFA 00 AM Base) Health MCG/ACT 108 EDT MCG/ACT Care) (90 Base) MCG/AC T Nebulizer UNK 01/07/ suspend Nebulizer eCW3 2012 ed ([facility] 12:00: [facility] 00 AM Health EDT Care) Nebulizer UNK 01/07/ suspend Nebulizer eCW3 2012 ed ([place] 12:00: [facility] 00 AM Health EDT Care) Nebulizer UNK 01/07/ suspend Nebulizer eCW3 2012 ed ([place] 12:00: [facility] 00 AM Health EDT Care) Nebulizer UNK 01/07/ suspend Nebulizer eCW3 2012 ed ([place] 12:00: [facility] 00 AM Health EDT Care) Nebulizer UNK 01/07/ suspend Nebulizer eCW3 2012 ed ([place] 12:00: [facility] 00 AM Health EDT Care) Albuterol Albute 2.0 suspend Albutero l eCW3 Sulfate HFA rol 2012 {puff ed Sulfate HFA ([facility] 108 (90 Sulfat 12:00: s} 108 (90 [facility]) e HFA 00 AM Base) Health MCG/ACT 108 EDT MCG/ACT Care) (90 Base) MCG/AC T Nebulizer UNK 01/07/ suspend Nebulizer eCW3 2012 ed ([place] 12:00: [facility] 00 AM Health EDT Care) Albuterol Albute 2.0 suspend Albutero l eCW3 Sulfate HFA rol 2013 {puff ed Sulfate HFA ([facility] 108 (90 Sulfat 12:00: s} 108 (90 [facility] Base) e HFA 00 AM Base) Health MCG/ACT 108 EDT MCG/ACT Care) (90 Base) MCG/AC T Albuterol Albute 2.0 suspend Albutero l eCW3 Sulfate HFA rol 2012 {puff ed Sulfate HFA ([place] 108 (90 Sulfat 12:00: s} 108 (90 [facility]) e HFA 00 AM Base) Health MCG/ACT 108 EDT MCG/ACT Care) (90 Base) MCG/AC T 200 ACTUAT Albute 2.0 suspend Albuter ol eCW3 Albuterol rol 2012 {puff ed Sulfate HFA (H udson 0.09 Sulfat 12:00: s} 108 (90 [facility] MG/ACTUAT e HFA 00 AM Base) Health Metered 108 EDT MCG/ACT Care) Dose (90 Inhaler Base) Albuterol MCG/AC Sulfate HFA T 108 (90 Base) MCG/ACT 200 ACTUAT Ventol 2.0 active Ventolin H FA eCW3 Albuterol in HFA {puff 108 (90 ([place] son 0.09 108 s_as_ Base) [facility] MG/ACTUAT (90 neede MCG/ACT Health Metered Base) d} Care) Dose MCG/AC Inhaler T [Ventolin] Ventolin HFA 108 (90 Base) MCG/ACT Albuterol AEROSOL, 2 RESPIR active Wh ite SPRAY [facility] ([facility]) Nicotine Nicoti SPRAY complet [facility] Albuterol Albute 3 mL RESPIR active Whit e 0.83 MG/ML rol [facility] Inhalant Sulfat ([facility] Albuterol Sulfate Nystatin Nystat 1.0 active Nystatin eCW 3 570376 in {appl [id number] ([place] UNT/ML 770936 icati UNIT/GM [place] Topical UNIT/G on} Health [facility]) Nystatin 319482 UNIT/GM 200 ACTUAT Ventol 2.0 active Ventolin H FA eCW3 Albuterol in HFA {puff 108 (90 ([place] son 0.09 108 s_as_ Base) [facility] MG/ACTUAT (90 neede MCG/ACT Health Metered Base) d} Care) Dose MCG/AC Inhaler T [Ventolin] Ventolin HFA 108 (90 Base) MCG/ACT Ibuprofen Ibupro TABLET 800 ORAL complet Whi te 400 MG Oral fen mg [facility] Albuterol AEROSOL, 2 RESPIR complet W allan SPRAY [facility] ([facility]) 200 ACTUAT Ventol 2.0 active Ventolin H FA eCW3 Albuterol in HFA {puff 108 (90 ([place] son 0.09 108 s_as_ Base) [facility] MG/ACTUAT (90 neede MCG/ACT Health Metered Base) d} Care) Dose MCG/AC Inhaler T [Ventolin] Ventolin HFA 108 (90 Base) MCG/ACT Nicotine Nicoti SPRAY complet [facility] 200 ACTUAT Ventol 2.0 active Ventolin H FA eCW3 Albuterol in HFA {puff 108 (90 ([place] son 0.09 108 s_as_ Base) [facility] MG/ACTUAT (90 neede MCG/ACT Health Metered Base) d} Care) Dose MCG/AC Inhaler T [Ventolin] Ventolin HFA 108 (90 Base) MCG/ACT Albuterol AEROSOL, 2 RESPIR active Wh ite SPRAY [facility] ([facility]) Nystatin Nystat 1.0 active Nystatin eCW 3 758310 in {appl [id number] ([place] UNT/ML 265575 icati UNIT/GM [place] Topical UNIT/G on} Health Cream [facility]) Nystatin 479318 UNIT/GM Ibuprofen Ibupro TABLET 800 ORAL complet Whi te 400 MG Oral fen mg [facility] Nystatin Nystat 1.0 active Nystatin eCW 3 018518 in {appl 188400 ([facility] UNT/ML [id number] icati UNIT/GM [place] Topical UNIT/G on} [facility]) Nystatin 040108 UNIT/GM Nystatin Nystat 1.0 active Nystatin eCW 3 179143 in {appl [id number] ([place] UNT/ML [id number] icati UNIT/GM [place] Topical UNIT/G on} [facility]) Nystatin 141750 UNIT/GM Ibuprofen Ibupro TABLET 800 ORAL complet Whi te 400 MG Oral fen mg [facility] 200 ACTUAT Ventol 2.0 active Ventolin H FA eCW3 Albuterol in HFA {puff 108 (90 (Hud son 0.09 108 s_as_ Base) [place] MG/ACTUAT (90 neede MCG/ACT Health Metered Base) d} Care) Dose MCG/AC Inhaler T [Ventolin] Ventolin HFA 108 (90 Base) MCG/ACT Nicotine Nicoti SPRAY complet [facility] Nystatin Nystat 1.0 active Nystatin eCW 3 253704 in {appl [id number] ([place] UNT/ML [id number] icati UNIT/GM [place] Topical UNIT/G on} [facility]) Nystatin 211179 UNIT/GM 200 ACTUAT Ventol 2.0 active Ventolin H FA eCW3 Albuterol in HFA {puff 108 (90 (Hud son 0.09 108 s_as_ Base) [place] MG/ACTUAT (90 neede MCG/ACT Health Metered Base) d} Care) Dose MCG/AC Inhaler T [Ventolin] Ventolin HFA 108 (90 Base) MCG/ACT Insurance Providers Payer name Policy type Policy ID Covered Covered green party's Policy P [place] / Coverage green party ID relationship to Etienne Inf ormation type etienne BRIDGETTE [id number] SP [id number] HEALTH NON CAP BETTER [id number] PT [id number] HEALTH/FIDELI S KERRY [id number] PT [id number] ESSENTIAL PLAN 1 W [id number] 01 [id number] Problems, Conditions, and Diagnoses Code Display Name Description Problem Type Effective Data Sour ce(s) Dates E66.01 Morbid obesity Morbid obesity Problem 08/12/2018 eCW3 ( [place] 12:00:00 AM [facility] EDT Care) J45.20 Mild intermittent Mild intermittent Problem 03/09/2018 eCW3 ([place] asthma in adult [facility] complication complication Z72.0 Tobacco abuse Tobacco abuse Problem 03/09/2018 eCW3 (Hu dson 12:00:00 AM [facility] EST Care) J45.20 Mild intermittent Mild intermittent Problem 03/09/2018 eCW3 ([place] asthma in adult asthma in adult [facility]) complication complication R73.09 Prediabetes Prediabetes Problem 06/14/2015 eCW3 ([place] 12:00:00 AM [facility] EST Care) F17.200 Smoker Smoker Problem 02/05/2015 eCW3 ([place] 12:00:00 AM [facility] EST Care) E78.0 Elevated LDL Elevated LDL Problem 02/05/2015 eCW3 ([place] on cholesterol level cholesterol level 12:00:00 AM [facility] EST Care) R80.9 Proteinuria Proteinuria Problem 02/05/2015 eCW3 ([place] 12:00:00 AM [facility] EST Care) E66.01 Morbid obesity Morbid obesity Problem 02/05/2015 eCW3 ( [place] 12:00:00 AM [facility] EST Care) R80.9 Proteinuria Proteinuria Problem 02/05/2015 eCW3 ([place] 12:00:00 AM [facility] EST Care) J45.909 Asthma Asthma Problem 02/01/2015 eCW3 ([place] 12:00:00 AM [facility] EDT Care) Z79.899 Other long-term Z79.899 Diagnosis 05/19/2019 [place] (current) drug 06:08:00 AM Hospital therapy EST Z98.84 Bariatric surgery Z98.84 Diagnosis 05/19/2019 [place] status 06:08:00 AM Hospital EST J45.909 Unspecified asthma, J45.909 Diagnosis 05/19/2019 [place] uncomplicated 06:08:00 AM Hospital EST Z68.33 Body mass index Z68.33 Diagnosis 05/19/2019 [place] (BMI) 33.0-33.9, 06:08:00 AM Hospita l adult EST E66.01 Morbid (severe) E66.01 Diagnosis 05/19/2019 [place] obesity due to 06:08:00 AM Hospital excess calories EST K80.10 Calculus of K80.10 Diagnosis 05/19/2019 [place] gallbladder with 06:08:00 AM Hospita l chronic EST cholecystitis without obstruction D72.829 Elevated white D72.829 Diagnosis 05/13/2019 [place] blood cell count, 11:21:00 AM Hospit al unspecified EST R79.89 Other specified R79.89 Diagnosis 05/13/2019 [place] abnormal findings 11:21:00 AM Hospit al of blood chemistry EST J44.9 Chronic obstructive J44.9 Diagnosis 05/13/2019 [place] pulmonary disease, 11:21:00 AM [facility] [place] unspecified EST K80.50 Calculus of bile K80.50 Diagnosis 05/13/[address] [place] duct without 11:21:00 AM Hospital cholangitis or EST cholecystitis without obstruction Z01.812 Encounter for Z01.812 Diagnosis 05/13/2019 [place] preprocedural 11:21:00 AM Hospital laboratory EST examination Z01.818 Encounter for other Z01.818 Diagnosis 05/13/2019 [place] preprocedural 11:21:00 AM Hospital examination EST Z87.891 Personal history of Z87.891 Diagnosis 04/26/2019 [place] nicotine dependence 09:32:00 PM Hosp ital EST R10.84 Generalized R10.84 Diagnosis 04/26/2019 [place] abdominal pain 09:32:00 PM Hospital EST I25.9 Chronic ischemic I25.9 Diagnosis 12/13/2018 [place] heart disease, 02:12:00 PM Hospital unspecified EDT Z68.42 Body mass index Z68.42 Diagnosis 12/10/2018 [place] (BMI) 45.0-49.9, 11:03:00 AM Hospita l adult EDT R73.03 Prediabetes R73.03 Diagnosis 12/10/2018 [place] 11:03:00 AM Hospital EDT Z01.810 Encounter for Z01.810 Diagnosis 12/10/2018 [place] preprocedural 11:03:00 AM Hospital cardiovascular EDT examination Surgeries/Procedures Procedure Description Date Indications Data Source(s) Oxygen therapy (procedure) 05/19/2019 [place] 12:00:00 AM Hospital EST Office/outpatient visit est 05/13/2019 [place] 12:00:00 AM Hospital EST Ultrasonography of abdomen 04/27/2019 [place] (procedure) 12:00:00 AM Hospital EST Us exam abdom complete 04/27/2019 [place] 12:00:00 AM Hospital EST Computed tomography of abdomen 04/26/2019 [place] and pelvis with intravenous 12:00:00 AM Hospital and oral contrast EST injection Diphenhydramine HCL, 04/26/2019 [place] up to 50 MG 12:00:00 AM Hospital EST INJECTION, ONDANSETRON 04/26/2019 [place] HYDROCHLORIDE, PER 1 MG 12:00:00 AM Hosp ital EST LOCM 200-299MG/ML IODINE,1ML 04/26/2019 [place] 12:00:00 AM Hospital EST LOW OSMOLAR 300-399 mg/mi IOP 04/26/2019 [place] 12:00:00 AM Hospital EST Assay of lipase 04/26/2019 [place] 12:00:00 AM Hospital EST Comprehen metabolic panel 04/26/2019 [place] 12:00:00 AM Hospital EST Urine test 04/26/2019 [place] 12:00:00 AM Hospital EST Influenza dna amp probe 04/26/2019 [place] 12:00:00 AM Hospital EST Influenza dna amp probe 04/26/2019 [place] 12:00:00 AM Hospital EST Complete cbc w/auto diff wbc 04/26/2019 [place] 12:00:00 AM Hospital EST Urinalysis auto w/scope 04/26/2019 [place] 12:00:[address] abd & pelv w/contrast 04/26/2019 [place] 12:00:00 AM Hospital EST Tx/pro/dx inj new drug addon 04/26/2019 [place] 12:00:00 AM Hospital EST Ther/proph/diag inj iv push 04/26/2019 [place] 12:00:00 AM Hospital EST Emergency dept visit 04/26/2019 [place] 12:00:00 AM Hospital EST Computed tomography of abdomen 04/26/2019 [place] and pelvis with intravenous 12:00:00 AM Hospital and oral contrast EST Physical therapy procedure 12/28/2018 [place] (regime/therapy) 12:00:00 AM Hospital EDT Incentive spirometry 12/27/2018 [place] (regime/therapy) 12:00:00 AM Hospital EDT Oxygen therapy (procedure) 12/27/2018 [place] 12:00:00 AM Hospital EDT Echocardiography (procedure) 12/13/2018 [place] 12:00:00 AM Hospital EDT Electrocardiographic procedure 12/10/2018 [place] (procedure) 12:00:00 AM Hospital EDT Hospital outpatient clinic 12/10/2018 [place] [place] visit for assessment & 12:00:00 AM [facility] [place] [facility] EDT Electrocardiogram tracing 12/10/2018 [place] 12:00:00 AM Hospital EDT Glycosylated hemoglobin test 12/10/2018 [place] 12:00:00 AM Hospital EDT Comprehen metabolic panel 12/10/2018 [facility] [place] 12:00:00 AM Hospital EDT Janet test indirect qual 12/10/2018 it [place] 12:00:00 AM Hospital EDT Prothrombin time 12/10/2018 [place] 12:00:00 AM Hospital EDT Complete cbc w/auto diff wbc 12/10/2018 [place] 12:00:00 AM Hospital EDT Thromboplastin time partial 12/10/2018 [place] 12:00:00 AM Hospital EDT Routine venipuncture 12/10/2018 [place] 12:00:00 AM Hospital EDT Results ID Date Data Source [id number] 05/19/2019 06:45:00 AM [facility] Name Value Range Interpretation Description Data Sup porting Code Source(s) Document(s ) Choriogonadotropin NEGATIVE [place] ( test) [place] [Presence] in Urine Hospital ID Date Data Source [id number] 05/13/2019 11:56:00 AM [facility] ADA RECOMMENDATIONS: NON-DIABETES: 4.0-6.0% CONTROLLED DIABETES: 6.0-8.0% UNCONTROLLED DIABETE S: UP TO 20%RECOMMENDED ADA RESULT FOR THERAPY: HEMOGLOBIN A1C RESULT LESS DAVID N 7%.NOTE: METHOD CHANGE EFFECTIVE 11/03/14. Name Value Range Interpretation Description Data Sup porting Code Source(s) Document(s ) Hemoglobin 5.0 % [place] A1c/Hemoglobin. Hospital total in Blood ID Date Data Source [id number] 05/13/2019 11:56:00 AM [facility] Name Value Range Interpretation Description Data Sup porting Code Source(s) Document(s ) Aspartate 16 U/L [place] aminotransferase [place] [Enzymatic Hospital activity/volume] in Serum or Plasma ID Date Data Source [id number] 05/13/2019 11:56:00 AM [facility] Name Value Range Interpretation Description Data Sup porting Code Source(s) Document(s ) Alanine 18 U/L [place] aminotransferase [place] [Enzymatic Hospital activity/volume] in Serum or Plasma ID Date Data Source [id number] 05/13/2019 11:56:00 AM [facility] Name Value Range Interpretation Description Data Sup porting Code Source(s) Document(s ) Alkaline 84 U/L [place] phosphatase Hospital [Enzymatic activity/volume ] in Serum or Plasma ID Date Data Source [id number] 05/13/2019 11:56:00 AM [facility] Name Value Range Interpretation Description Data Sup porting Code Source(s) Document(s ) Bilirubin.t 1.1 mg/dL [facility] [Mass/volum e] in Serum or Plasma ID Date Data Source [id number] 05/13/2019 11:56:00 AM [facility] Name Value Range Interpretation Code Description Data Mary Kate rce(s) Supporting Document(s ) Albumin/Glob 2.3 [place] ulin [Mass Hospital Ratio] in Serum or Plasma ID Date Data Source [id number] 05/13/2019 11:56:00 AM [facility] Name Value Range Interpretation Description Data Sup porting Code Source(s) Document(s ) Albumin 4.6 g/dL [place] [Mass/volume Hospital ] in Serum or Plasma ID Date Data Source [id number] 05/13/2019 11:56:00 AM [facility] Name Value Range Interpretation Description Data Sup porting Code Source(s) Document(s ) Protein 6.6 g/dL [place] [Mass/volume Hospital ] in Serum or Plasma ID Date Data Source [id number] 05/13/2019 11:56:00 AM [facility] Name Value Range Interpretation Description Data Sup porting Code Source(s) Document(s ) Calcium 9.0 mg/dL [place] [Mass/volume Hospital ] in Serum or Plasma ID Date Data Source [id number] 05/13/2019 11:56:00 AM [facility] UNITS ARE IN ml/min/1.73m2.IF PATIENT IS -TONGAN, MULTIPLY REPORTED RESULT BY 1.21. Name Value Range Interpretation Description Data Sup porting Code Source(s) Document(s ) Glomerular > 60 [place] filtration mL/min Hospital rate/1.73 sq M.predicted [Volume Rate/Area] in Serum or Plasma by Creatinine-bas ed formula (MDRD) ID Date Data Source [id number] 05/13/2019 11:56:00 AM [facility] Name Value Range Interpretation Code Description Data Mary Kate rce(s) Supporting Document(s ) Urea 16.3 [place] nitrogen/Cre Hospital atinine [Mass Ratio] in Serum or Plasma ID Date Data Source [id number] 05/13/2019 11:56:00 AM [facility] Name Value Range Interpretation Description Data Sup porting Code Source(s) Document(s ) Creatinine 0.8 mg/dL [place] [Mass/volume] Hospital in Serum or Plasma ID Date Data Source [id number] 05/13/2019 11:56:00 AM [facility] Hospital Name Value Range Interpretation Description Data Sup porting Code Source(s) Document(s ) Urea 13 mg/dL [place] nitrogen Hospital [Mass/volume ] in Serum or Plasma ID Date Data Source [id number] 05/13/2019 11:56:00 AM [facility] Hospital Name Value Range Interpretation Code Description Data Mary Kate rce(s) Supporting Document(s ) Anion gap in 12 [place] Serum or [facility] Plasma ID Date Data Source [id number] 05/13/2019 11:56:00 AM [facility] Value Range Interpretation Description Data Sup porting Code Source(s) Document(s ) Carbon 26 mmol/L [place] dioxide, Hospital total [Moles/volu me] in Serum or Plasma ID Date Data Source [id number] 05/13/2019 11:56:00 AM [facility] Hospital Name Value Range Interpretation Description Data Sup porting Code Source(s) Document(s ) Chloride 105 [place] [Moles/volum mmol/L Hospital e] in Serum or Plasma ID Date Data Source [id number] 05/13/2019 11:56:00 AM [facility] Hospital Name Value Range Interpretation Description Data Sup porting Code Source(s) Document(s ) Potassium 4.3 [place] [Moles/volume mmol/L Hospital ] in Serum or Plasma ID Date Data Source [id number] 05/13/2019 11:56:00 AM EST [facility] Name Value Range Interpretation Description Data Sup porting Code Source(s) Document(s ) Sodium 139 mmol/L [place] [Moles/volu Hospital me] in Serum or Plasma ID Date Data Source [id number] 05/13/2019 11:56:00 AM EST [facility] Name Value Range Interpretation Description Data Sup porting Code Source(s) Document(s ) Glucose 86 mg/dL [place] [Mass/volume Hospital ] in Serum or Plasma ID Date Data Source [id number] 05/13/2019 11:56:00 AM EST [facility] Name Value Range Interpretation Code Description Data Supporting Source(s) Document(s ) NUCLEATED RBCS 0.0 % [place] (AUTO Hospital DIFF%)DIS ID Date Data Source [id number] 05/13/2019 11:56:00 AM EST [facility] Value Range Interpretation Description Data Sup porting Code Source(s) Document(s ) Differential AUTOMATED [place] cell count Hospital method - Blood ID Date Data Source [id number] 05/13/2019 11:56:00 AM EST [facility] Name Value Range Interpretation Description Data Sup porting Code Source(s) Document(s ) Immature 0.02 [place] granulocytes 10*3/uL Hospital [#/volume] in Blood by Automated count ID Date Data Source [id number] 05/13/2019 11:56:00 AM EST [facility] Name Value Range Interpretation Description Data Sup porting Code Source(s) Document(s ) Basophils 0.06 [place] [#/volume] in 10*3/uL Hospital Blood by Automated count ID Date Data Source [id number] 05/13/2019 11:56:00 AM EST [facility] Name Value Range Interpretation Description Data Sup porting Code Source(s) Document(s ) Eosinophils 0.23 [place] [#/volume] in 10*3/uL Hospital Blood by Automated count ID Date Data Source [id number] 05/13/2019 11:56:00 AM EST [facility] Name Value Range Interpretation Description Data Sup porting Code Source(s) Document(s ) Monocytes 0.40 [place] [#/volume] in 10*3/uL Hospital Blood by Automated count ID Date Data Source [id number] 05/13/2019 11:56:00 AM EST [facility] Value Range Interpretation Description Data Sup porting Code Source(s) Document(s ) Lymphocytes 2.43 [place] [#/volume] in 10*3/uL Hospital Blood by Automated count ID Date Data Source [id number] 05/13/2019 11:56:00 AM EST [facility] Value Range Interpretation Description Data Sup porting Code Source(s) Document(s ) Neutrophils 4.51 [place] [#/volume] in 10*3/uL [facility] Blood by Automated count ID Date Data Source [id number] 05/13/2019 11:56:00 AM [facility] Value Range Interpretation Description Data Sup porting Code Source(s) Document(s ) Nucleated 0.0 % [place] erythrocytes/10 Hospital 0 leukocytes [Ratio] in Blood by Automated count ID Date Data Source [id number] 05/13/2019 11:56:00 AM EST [facility] Value Range Interpretation Description Data Sup porting Code Source(s) Document(s ) Immature 0.3 % [place] granulocytes/10 Hospital 0 leukocytes in Blood by Automated count ID Date Data Source [id number] 05/13/2019 11:56:00 AM EST [facility] Value Range Interpretation Description Data Sup porting Code Source(s) Document(s ) Basophils/100 0.8 % [place] leukocytes in Hospital Blood by Automated count ID Date Data Source [id number] 05/13/2019 11:56:00 AM EST [facility] Name Value Range Interpretation Description Data Sup porting Code Source(s) Document(s ) Eosinophils/100 3.0 % [place] leukocytes in Hospital Blood by Automated count ID Date Data Source [id number] 05/13/2019 11:56:00 AM EST [facility] Name Value Range Interpretation Description Data Sup porting Code Source(s) Document(s ) Monocytes/100 5.2 % [place] leukocytes in Hospital Blood by Automated count ID Date Data Source [id number] 05/13/2019 11:56:00 AM EST [facility] Name Value Range Interpretation Description Data Sup porting Code Source(s) Document(s ) Lymphocytes/10 31.8 % [place] 0 leukocytes Hospital in Blood by Automated count ID Date Data Source [id number] 05/13/2019 11:56:00 AM EST [facility] Name Value Range Interpretation Description Data Sup porting Code Source(s) Document(s ) Neutrophils/10 58.9 % [place] 0 leukocytes Hospital in Blood by Automated count ID Date Data Source [id number] 05/13/2019 11:56:00 AM EST [facility] Name Value Range Interpretation Description Data Sup porting Code Source(s) Document(s ) Platelet mean 10.2 fL [place] volume Hospital [Entitic volume] in Blood by Automated count ID Date Data Source [id number] 05/13/2019 11:56:00 AM EST [facility] Name Value Range Interpretation Description Data Sup porting Code Source(s) Document(s ) Platelets 288 [place] [#/volume] in 10*3/uL Hospital Blood by Automated count ID Date Data Source [id number] 05/13/2019 11:56:00 AM EST [facility] Name Value Range Interpretation Description Data Sup porting Code Source(s) Document(s ) Erythrocyte 12.5 % [place] distribution Hospital width [Ratio] by Automated count ID Date Data Source [id number] 05/13/2019 11:56:00 AM [facility] Value Range Interpretation Description Data Sup porting Code Source(s) Document(s ) Erythrocyte mean 34.3 [place] corpuscular g/dL Hospital hemoglobin concentration [Mass/volume] by Automated count ID Date Data Source [id number] 05/13/2019 11:56:00 AM [facility] Value Range Interpretation Description Data Sup porting Code Source(s) Document(s ) Erythrocyte 30.4 pg [facility] corpuscular hemoglobin [Entitic mass] by Automated count ID Date Data Source [id number] 05/13/2019 11:56:00 AM [facility] Value Range Interpretation Description Data Sup porting Code Source(s) Document(s ) Erythrocyte 88.7 fL [facility] corpuscular volume [Entitic volume] by Automated count ID Date Data Source [id number] 05/13/2019 11:56:00 AM [facility] Value Range Interpretation Description Data Sup porting Code Source(s) Document(s ) Hematocrit 40.8 % [place] [Volume Hospital Fraction] of Blood by Automated count ID Date Data Source [id number] 05/13/2019 11:56:00 AM [facility] Value Range Interpretation Description Data Sup porting Code Source(s) Document(s ) Hemoglobin 14.0 g/dL [place] [Mass/volume] Hospital in Blood ID Date Data Source [id number] 05/13/2019 11:56:00 AM [facility] Value Range Interpretation Description Data Sup porting Code Source(s) Document(s ) Erythrocytes 4.60 [place] [#/volume] in 10*6/uL Hospital Blood by Automated count ID Date Data Source [id number] 05/13/2019 11:56:00 AM EST [facility] Value Range Interpretation Description Data Sup porting Code Source(s) Document(s ) Leukocytes 7.7 [place] [#/volume] in 10*3/uL Hospital Blood by Automated count ID Date Data Source [id number] 04/27/2019 03:00:00 PM EST [facility] Name Value Range Interpretation Description Data Sup porting Code Source(s) Document(s ) Manual MANUAL [place] differential Hospital performed [Presence] in Blood ID Date Data Source [id number] 04/27/2019 03:00:00 PM [facility] Value Range Interpretation Code Description Data Mary Kate rce(s) Supporting Document(s ) Cells 100 [facility] Counted Hospital Total [#] in Blood ID Date Data Source [id number] 04/27/2019 03:00:00 PM [facility] Value Range Interpretation Code Description Data Supporting Source(s) Document(s ) PLATELET NORMAL [facility] COMMENT Hospital ID Date Data Source [id number] 04/27/2019 03:00:00 PM [facility] Value Range Interpretation Code Description Data Mary Kate rce(s) Supporting Document(s ) RBC COMMENT NORMAL [facility] Hospital ID Date Data Source [id number] 04/27/2019 03:00:00 PM [facility] Value Range Interpretation Description Data Sup porting Code Source(s) Document(s ) Eosinophils 0.30 [place] [#/volume] in 10*3/uL Hospital Blood by Manual count ID Date Data Source [id number] 04/27/2019 03:00:00 PM EST [facility] Value Range Interpretation Description Data Sup porting Code Source(s) Document(s ) Monocytes 0.30 [place] [#/volume] in 10*3/uL Hospital Blood by Manual count ID Date Data Source [id number] 04/27/2019 03:00:00 PM EST [facility] Name Value Range Interpretation Description Data Sup porting Code Source(s) Document(s ) Lymphocytes 1.31 [place] [#/volume] in 10*3/uL Hospital Blood by Manual count ID Date Data Source [id number] 04/27/2019 03:00:00 PM EST [facility] Name Value Range Interpretation Description Data Sup porting Code Source(s) Document(s ) Neutrophils 8.18 [place] [#/volume] in 10*3/uL Hospital Blood by Manual count ID Date Data Source [id number] 04/27/2019 03:00:00 PM EST [facility] Name Value Range Interpretation Description Data Sup porting Code Source(s) Document(s ) Eosinophils/100 3 % [place] leukocytes in Hospital Blood by Manual count ID Date Data Source [id number] 04/27/2019 03:00:00 PM [facility] Name Value Range Interpretation Description Data Sup porting Code Source(s) Document(s ) Monocytes/100 3 % [place] leukocytes in Hospital Blood by Manual count ID Date Data Source [id number] 04/27/2019 03:00:00 PM EST [facility] Name Value Range Interpretation Description Data Sup porting Code Source(s) Document(s ) Lymphocytes/100 13 % [facility] leukocytes in Hospital Blood by Manual count ID Date Data Source [id number] 04/27/2019 03:00:00 PM EST [facility] Name Value Range Interpretation Description Data Sup porting Code Source(s) Document(s ) Band form 1 % [facility] neutrophils/100 Hospital leukocytes in Blood ID Date Data Source [id number] 04/27/2019 03:00:00 PM [facility] Name Value Range Interpretation Description Data Sup porting Code Source(s) Document(s ) Neutrophils/100 80 % [facility] leukocytes in Hospital Blood by Manual count ID Date Data Source [id number] 04/27/2019 12:26:00 AM [facility] Value Range Interpretation Description Data Sup porting Code Source(s) Document(s ) Choriogonadotropin NEGATIVE White ( test) [place] [Presence] in Urine Hospital ID Date Data Source [id number] 04/26/2019 10:21:00 PM [facility] Value Range Interpretation Description Data Sup porting Code Source(s) Document(s ) Epithelial OCCASIONAL [facility] cells.[facility] s [#/area] in Urine sediment by Microscopy high power field ID Date Data Source [id number] 04/26/2019 10:21:00 PM [facility] Name Value Range Interpretation Description Data Sup porting Code Source(s) Document(s ) Bacteria 1+ [facility] [#/area] in Hospital Urine sediment by Microscopy high power field ID Date Data Source [id number] 04/26/2019 10:21:00 PM [facility] Value Range Interpretation Description Data Sup porting Code Source(s) Document(s ) Erythrocytes 0-3 [facility] [#/area] in /[HPF] Hospital Urine sediment by Microscopy high power field ID Date Data Source [id number] 04/26/2019 10:21:00 PM [facility] Name Value Range Interpretation Description Data Sup porting Code Source(s) Document(s ) Leukocytes 0-3 [facility] [#/area] in /[HPF] Hospital Urine sediment by Microscopy high power field ID Date Data Source [id number] 04/26/2019 10:21:00 PM EST [facility] Name Value Range Interpretation Description Data Sup porting Code Source(s) Document(s ) Leukocyte NEGATIVE [facility] esterase [facility] [Presence] in Urine by Test strip ID Date Data Source [id number] 04/26/2019 10:21:00 PM EST [facility] Name Value Range Interpretation Description Data Sup porting Code Source(s) Document(s ) URINE NEGATIVE [facility] NITRITES Hospital ID Date Data Source [id number] 04/26/2019 10:21:00 PM [facility] Name Value Range Interpretation Description Data Sup porting Code Source(s) Document(s ) Erythrocytes NEGATIVE [facility] [#/volume] in Hospital Urine by Test strip ID Date Data Source [id number] 04/26/2019 10:21:00 PM [facility] Name Value Range Interpretation Code Description Data Mary Kate rce(s) Supporting Document(s ) Bilirubin. NEGATIVE [facility] total Hospital [Presence] in Urine by Test strip ID Date Data Source [id number] 04/26/2019 10:21:00 PM [facility] Name Value Range Interpretation Description Data Sup porting Code Source(s) Document(s ) Urobilinogen 1.0 [facility] [Units/volume] mg/dL Hospital in Urine by Test strip ID Date Data Source [id number] 04/26/2019 10:21:00 PM [facility] Name Value Range Interpretation Description Data Sup porting Code Source(s) Document(s ) Ketones NEGATIVE [facility] [Mass/volume Hospital ] in Urine by Test strip ID Date Data Source [id number] 04/26/2019 10:21:00 PM EST [facility] Name Value Range Interpretation Description Data Sup porting Code Source(s) Document(s ) Glucose NEGATIVE [facility] [Mass/volume Hospital ] in Urine by Test strip ID Date Data Source [id number] 04/26/2019 10:21:00 PM EST [facility] Name Value Range Interpretation Description Data Sup porting Code Source(s) Document(s ) Protein NEGATIVE [facility] [Presence] Hospital in Urine by Test strip ID Date Data Source [id number] 04/26/2019 10:21:00 PM EST [facility] Name Value Range Interpretation Code Description Data Mary Kate rce(s) Supporting Document(s ) pH of Urine 7.5 [facility] by Test Hospital strip ID Date Data Source [id number] 04/26/2019 10:21:00 PM EST [facility] Name Value Range Interpretation Code Description Data Supporting Source(s) Document(s ) Specific 1.013 [facility] gravity of Hospital Urine by Test strip ID Date Data Source [id number] 04/26/2019 10:21:00 PM [facility] Name Value Range Interpretation Description Data Sup porting Code Source(s) Document(s ) Clarity in Urine CLOUDY [facility] by Refractometry Hospital automated ID Date Data Source [id number] 04/26/2019 10:21:00 PM EST [facility] Name Value Range Interpretation Code Description Data Mary Kate rce(s) Supporting Document(s ) Color of YELLOW [facility] Urine Hospital ID Date Data Source [id number] 04/26/2019 10:21:00 PM EST [facility] Name Value Range Interpretation Description Data Sup porting Code Source(s) Document(s ) Epithelial OCCASIONAL [facility] cells.[facility] s [#/area] in Urine sediment by Microscopy high power field ID Date Data Source [id number] 04/26/2019 10:21:00 PM EST [facility] Name Value Range Interpretation Description Data Sup porting Code Source(s) Document(s ) Bacteria 1+ [facility] [#/area] in Hospital Urine sediment by Microscopy high power field ID Date Data Source [id number] 04/26/2019 10:21:00 PM EST [facility] Name Value Range Interpretation Description Data Sup porting Code Source(s) Document(s ) Erythrocytes 0-3 [facility] [#/area] in /[HPF] Hospital Urine sediment by Microscopy high power field ID Date Data Source [id number] 04/26/2019 10:21:00 PM [facility] Name Value Range Interpretation Description Data Sup porting Code Source(s) Document(s ) Leukocytes 0-3 [facility] [#/area] in /[HPF] Hospital Urine sediment by Microscopy high power field ID Date Data Source [id number] 04/26/2019 10:21:00 PM [facility] Name Value Range Interpretation Description Data Sup porting Code Source(s) Document(s ) Leukocyte NEGATIVE [facility] esterase [facility] [Presence] in Urine by Test strip ID Date Data Source [id number] 04/26/2019 10:21:00 PM [facility] Name Value Range Interpretation Description Data Sup porting Code Source(s) Document(s ) URINE NEGATIVE [facility] NITRITES Hospital ID Date Data Source [id number] 04/26/2019 10:21:00 PM [facility] Name Value Range Interpretation Description Data Sup porting Code Source(s) Document(s ) Erythrocytes NEGATIVE [facility] [#/volume] in Hospital Urine by Test strip ID Date Data Source [id number] 04/26/2019 10:21:00 PM EST [facility] Name Value Range Interpretation Code Description Data Mary Kate rce(s) Supporting Document(s ) Bilirubin. NEGATIVE [facility] total Hospital [Presence] in Urine by Test strip ID Date Data Source [id number] 04/26/2019 10:21:00 PM [facility] Name Value Range Interpretation Description Data Sup porting Code Source(s) Document(s ) Urobilinogen 1.0 [facility] [Units/volume] mg/dL Hospital in Urine by Test strip ID Date Data Source [id number] 04/26/2019 10:21:00 PM [facility] Name Value Range Interpretation Description Data Sup porting Code Source(s) Document(s ) Ketones NEGATIVE [facility] [Mass/volume Hospital ] in Urine by Test strip ID Date Data Source [id number] 04/26/2019 10:21:00 PM [facility] Value Range Interpretation Description Data Sup porting Code Source(s) Document(s ) Glucose NEGATIVE [facility] [Mass/volume Hospital ] in Urine by Test strip ID Date Data Source [id number] 04/26/2019 10:21:00 PM [facility] Name Value Range Interpretation Description Data Sup porting Code Source(s) Document(s ) Protein NEGATIVE [facility] [Presence] Hospital in Urine by Test strip ID Date Data Source [id number] 04/26/2019 10:21:00 PM [facility] Name Value Range Interpretation Code Description Data Mary Kate rce(s) Supporting Document(s ) pH of Urine 7.5 [facility] by Test Hospital strip ID Date Data Source [id number] 04/26/2019 10:21:00 PM [facility] Name Value Range Interpretation Code Description Data Supporting Source(s) Document(s ) Specific 1.013 [facility] gravity of Hospital Urine by Test strip ID Date Data Source [id number] 04/26/2019 10:21:00 PM [facility] Name Value Range Interpretation Description Data Sup porting Code Source(s) Document(s ) Clarity in Urine CLOUDY [facility] by Refractometry Hospital automated ID Date Data Source [id number] 04/26/2019 10:21:00 PM [facility] Name Value Range Interpretation Code Description Data Mary Kate rce(s) Supporting Document(s ) Color of YELLOW [facility] Urine Hospital ID Date Data Source [id number] 04/26/2019 09:05:00 PM [facility] Name Value Range Interpretation Code Description Data Mary Kate rce(s) Supporting Document(s ) Lipase 30 U/L [facility] [Enzymatic Hospital activity/vo lume] in Serum or Plasma ID Date Data Source [id number] 04/26/2019 09:05:00 PM [facility] Name Value Range Interpretation Code Description Data Mary Kate rce(s) Supporting Document(s ) Lipase 30 U/L [facility] [Enzymatic Hospital activity/vo lume] in Serum or Plasma ID Date Data Source [id number] 04/26/2019 09:05:00 PM EST [facility] Name Value Range Interpretation Description Data Sup porting Code Source(s) Document(s ) Aspartate 488 U/L White aminotransferase [place] [Enzymatic Hospital activity/volume] in Serum or Plasma ID Date Data Source [id number] 04/26/2019 09:05:00 PM EST [facility] Name Value Range Interpretation Description Data Sup porting Code Source(s) Document(s ) Alanine 203 U/L [facility] aminotransferase [place] [Enzymatic Hospital activity/volume] in Serum or Plasma ID Date Data Source [id number] 04/26/2019 09:05:00 PM EST [facility] Name Value Range Interpretation Description Data Sup porting Code Source(s) Document(s ) Alkaline 151 U/L [facility] phosphatase Hospital [Enzymatic activity/volume ] in Serum or Plasma ID Date Data Source [id number] 04/26/2019 09:05:00 PM EST [facility] Name Value Range Interpretation Description Data Sup porting Code Source(s) Document(s ) Bilirubin.t 1.1 mg/dL [facility] [Mass/volum e] in Serum or Plasma ID Date Data Source [id number] 04/26/2019 09:05:00 PM EST [facility] Name Value Range Interpretation Code Description Data Mary Kate rce(s) Supporting Document(s ) Albumin/Glob 2.1 [facility] ulin [Mass Hospital Ratio] in Serum or Plasma ID Date Data Source [id number] 04/26/2019 09:05:00 PM [facility] Name Value Range Interpretation Description Data Sup porting Code Source(s) Document(s ) Albumin 4.9 g/dL [facility] [Mass/volume Hospital ] in Serum or Plasma ID Date Data Source [id number] 04/26/2019 09:05:00 PM [facility] Name Value Range Interpretation Description Data Sup porting Code Source(s) Document(s ) Protein 7.2 g/dL [facility] [Mass/volume Hospital ] in Serum or Plasma ID Date Data Source [id number] 04/26/2019 09:05:00 PM EST [facility] Name Value Range Interpretation Description Data Sup porting Code Source(s) Document(s ) Calcium 9.9 mg/dL [facility] [Mass/volume Hospital ] in Serum or Plasma ID Date Data Source [id number] 04/26/2019 09:05:00 PM EST [facility] Name Value Range Interpretation Code Description Data Mary Kate rce(s) Supporting Document(s ) Urea 11.3 [facility] nitrogen/Cre Hospital atinine [Mass Ratio] in Serum or Plasma ID Date Data Source [id number] 04/26/2019 09:05:00 PM EST [facility] Name Value Range Interpretation Description Data Sup porting Code Source(s) Document(s ) Creatinine 0.8 mg/dL [facility] [Mass/volume] Hospital in Serum or Plasma ID Date Data Source [id number] 04/26/2019 09:05:00 PM EST [facility] Value Range Interpretation Description Data Sup porting Code Source(s) Document(s ) Urea nitrogen 9 mg/dL [facility] [Mass/volume] Hospital in Serum or Plasma ID Date Data Source [id number] 04/26/2019 09:05:00 PM [facility] Value Range Interpretation Code Description Data Mary Kate rce(s) Supporting Document(s ) Anion gap in 12 [facility] Serum or [facility] Plasma ID Date Data Source [id number] 04/26/2019 09:05:00 PM [facility] Value Range Interpretation Description Data Sup porting Code Source(s) Document(s ) Carbon 29 mmol/L [facility] dioxide, Hospital total [Moles/volu me] in Serum or Plasma ID Date Data Source [id number] 04/26/2019 09:05:00 PM [facility] Value Range Interpretation Description Data Sup porting Code Source(s) Document(s ) Chloride 106 [facility] [Moles/volum mmol/L Hospital e] in Serum or Plasma ID Date Data Source [id number] 04/26/2019 09:05:00 PM [facility] Value Range Interpretation Description Data Sup porting Code Source(s) Document(s ) Potassium 4.5 [facility] [Moles/volume mmol/L Hospital ] in Serum or Plasma ID Date Data Source [id number] 04/26/2019 09:05:00 PM [facility] Value Range Interpretation Description Data Sup porting Code Source(s) Document(s ) Sodium 142 mmol/L [facility] [place]] in Serum or Plasma ID Date Data Source [id number] 04/26/2019 09:05:00 PM [facility] Value Range Interpretation Description Data Sup porting Code Source(s) Document(s ) Glucose 113 mg/dL [facility] [Mass/volume Hospital ] in Serum or Plasma ID Date Data Source [id number] 04/26/2019 09:05:00 PM [facility] Value Range Interpretation Code Description Data Supporting Source(s) Document(s ) NUCLEATED RBCS 0.0 % [facility] (AUTO Hospital DIFF%)DIS ID Date Data Source [id number] 04/26/2019 09:05:00 PM [facility] Value Range Interpretation Description Data Sup porting Code Source(s) Document(s ) Differential AUTOMATED [facility] cell count [facility] method - Blood ID Date Data Source [id number] 04/26/2019 09:05:00 PM [facility] Value Range Interpretation Description Data Sup porting Code Source(s) Document(s ) Immature 0.03 [facility] granulocytes 10*3/uL Hospital [#/volume] in Blood by Automated count ID Date Data Source [id number] 04/26/2019 09:05:00 PM [facility] Value Range Interpretation Description Data Sup porting Code Source(s) Document(s ) Basophils 0.05 [facility] [#/volume] in 10*3/uL Hospital Blood by Automated count ID Date Data Source [id number] 04/26/2019 09:05:00 PM [facility] Value Range Interpretation Description Data Sup porting Code Source(s) Document(s ) Eosinophils 0.24 [facility] [#/volume] in 10*3/uL Hospital Blood by Automated count ID Date Data Source [id number] 04/26/2019 09:05:00 PM EST [facility] Name Value Range Interpretation Description Data Sup porting Code Source(s) Document(s ) Monocytes 0.59 [facility] [#/volume] in 10*3/uL Hospital Blood by Automated count ID Date Data Source [id number] 04/26/2019 09:05:00 PM [facility] Value Range Interpretation Description Data Sup porting Code Source(s) Document(s ) Lymphocytes 2.31 [facility] [#/volume] in 10*3/uL Hospital Blood by Automated count ID Date Data Source [id number] 04/26/2019 09:05:00 PM [facility] Value Range Interpretation Description Data Sup porting Code Source(s) Document(s ) Neutrophils 8.60 [facility] [#/volume] in 10*3/uL Hospital Blood by Automated count ID Date Data Source [id number] 04/26/2019 09:05:00 PM [facility] Value Range Interpretation Description Data Sup porting Code Source(s) Document(s ) Nucleated 0.0 % [facility] erythrocytes/10 Hospital 0 leukocytes [Ratio] in Blood by Automated count ID Date Data Source [id number] 04/26/2019 09:05:00 PM [facility] Value Range Interpretation Description Data Sup porting Code Source(s) Document(s ) Immature 0.3 % [facility] granulocytes/10 Hospital 0 leukocytes in Blood by Automated count ID Date Data Source [id number] 04/26/2019 09:05:00 PM [facility] Value Range Interpretation Description Data Sup porting Code Source(s) Document(s ) Basophils/100 0.4 % [facility] leukocytes in Hospital Blood by Automated count ID Date Data Source [id number] 04/26/2019 09:05:00 PM EST [facility] Name Value Range Interpretation Description Data Sup porting Code Source(s) Document(s ) Eosinophils/100 2.0 % [facility] leukocytes in Hospital Blood by Automated count ID Date Data Source [id number] 04/26/2019 09:05:00 PM EST [facility] Name Value Range Interpretation Description Data Sup porting Code Source(s) Document(s ) Monocytes/100 5.0 % [facility] leukocytes in Hospital Blood by Automated count ID Date Data Source [id number] 04/26/2019 09:05:00 PM EST [facility] Name Value Range Interpretation Description Data Sup porting Code Source(s) Document(s ) Lymphocytes/10 19.5 % [facility] 0 leukocytes Hospital in Blood by Automated count ID Date Data Source [id number] 04/26/2019 09:05:00 PM EST [facility] Name Value Range Interpretation Description Data Sup porting Code Source(s) Document(s ) Neutrophils/10 72.8 % [facility] 0 leukocytes Hospital in Blood by Automated count ID Date Data Source [id number] 04/26/2019 09:05:00 PM EST [facility] Name Value Range Interpretation Description Data Sup porting Code Source(s) Document(s ) Platelet mean 9.8 fL [facility] volume Hospital [Entitic volume] in Blood by Automated count ID Date Data Source [id number] 04/26/2019 09:05:00 PM EST [facility] Name Value Range Interpretation Description Data Sup porting Code Source(s) Document(s ) Platelets 260 [facility] [#/volume] in 10*3/uL Hospital Blood by Automated count ID Date Data Source [id number] 04/26/2019 09:05:00 PM [facility] Value Range Interpretation Description Data Sup porting Code Source(s) Document(s ) Erythrocyte 12.9 % [facility] width [Ratio] by Automated count ID Date Data Source [id number] 04/26/2019 09:05:00 PM [facility] Value Range Interpretation Description Data Sup porting Code Source(s) Document(s ) Erythrocyte mean 33.9 [facility] corpuscular g/dL Hospital hemoglobin concentration [Mass/volume] by Automated count ID Date Data Source [id number] 04/26/2019 09:05:00 PM [facility] Value Range Interpretation Description Data Sup porting Code Source(s) Document(s ) Erythrocyte 30.3 pg [facility] corpuscular hemoglobin [Entitic mass] by Automated count ID Date Data Source [id number] 04/26/2019 09:05:00 PM [facility] Value Range Interpretation Description Data Sup porting Code Source(s) Document(s ) Erythrocyte 89.3 fL [facility] corpuscular volume [Entitic volume] by Automated count ID Date Data Source [id number] 04/26/2019 09:05:00 PM [facility] Value Range Interpretation Description Data Sup porting Code Source(s) Document(s ) Hematocrit 44.2 % [facility] [Volume Hospital Fraction] of Blood by Automated count ID Date Data Source [id number] 04/26/2019 09:05:00 PM [facility] Value Range Interpretation Description Data Sup porting Code Source(s) Document(s ) Hemoglobin 15.0 g/dL [facility] [Mass/volume] Hospital in Blood ID Date Data Source [id number] 04/26/2019 09:05:00 PM [facility] Name Value Range Interpretation Description Data Sup porting Code Source(s) Document(s ) Erythrocytes 4.95 [facility] [#/volume] in 10*6/uL Hospital Blood by Automated count ID Date Data Source [id number] 04/26/2019 09:05:00 PM [facility] Name Value Range Interpretation Description Data Sup porting Code Source(s) Document(s ) Leukocytes 11.8 [facility] [#/volume] in 10*3/uL Hospital Blood by Automated count ID Date Data Source [id number] 12/28/2018 04:02:00 PM [facility] [employer] 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[employer]:JOEY DOYLE Name Value Range Interpretation Description Data Sup porting Code Source(s) Document(s ) Glucose 101 mg/dL [facility] [Mass/volume] Hospital in Capillary blood by Glucometer ID Date Data Source [id number] 12/28/2018 06:44:00 AM [facility] Name Value Range Interpretation Description Data Sup porting Code Source(s) Document(s ) Aspartate 26 U/L White aminotransferase [place] [Enzymatic Hospital activity/volume] in Serum or Plasma ID Date Data Source [id number] 12/28/2018 06:44:00 AM [facility] Name Value Range Interpretation Description Data Sup porting Code Source(s) Document(s ) Alanine 25 U/L White aminotransferase [place] [Enzymatic Hospital activity/volume] in Serum or Plasma ID Date Data Source [id number] 12/28/2018 06:44:00 AM [facility] Name Value Range Interpretation Description Data Sup porting Code Source(s) Document(s ) [facility] 84 [facility] [Enzymatic activity/volume ] in Serum or Plasma ID Date Data Source [id number] 12/28/2018 06:44:00 AM EDT [facility] Name Value Range Interpretation Description Data Sup porting Code Source(s) Document(s ) Bilirubin.t 1.0 mg/dL [facility] [Mass/volum e] in Serum or Plasma ID Date Data Source [id number] 12/28/2018 06:44:00 AM EDT [facility] Name Value Range Interpretation Code Description Data Mary Kate rce(s) Supporting Document(s ) Albumin/Glob 1.8 [facility] ulin [[facility] Ratio] in Serum or Plasma ID Date Data Source [id number] 12/28/2018 06:44:00 AM EDT [facility] Name Value Range Interpretation Description Data Sup porting Code Source(s) Document(s ) Albumin 4.2 g/dL [place] [[facility]/volume Hospital ] in Serum or Plasma ID Date Data Source [id number] 12/28/2018 06:44:00 AM EDT [facility] Name Value Range Interpretation Description Data Sup porting Code Source(s) Document(s ) Protein 6.6 g/dL [place] [[facility] ] in Serum or Plasma ID Date Data Source [id number] 12/28/2018 06:44:00 AM EDT [facility] Name Value Range Interpretation Description Data Sup porting Code Source(s) Document(s ) Calcium 8.7 mg/dL [place] [[facility] ] in Serum or Plasma ID Date Data Source [id number] 12/[facility] Value Range Interpretation Code Description Data Mary Kate rce(s) Supporting Document(s ) Urea 16.3 [place] nitrogen/Cre Hospital atinine [Mass Ratio] in Serum or Plasma ID Date Data Source [id number] 12/28/2018 06:44:00 AM EDT [facility] Name Value Range Interpretation Description Data Sup porting Code Source(s) Document(s ) Creatinine 0.8 mg/dL [place] [Mass/volume] Hospital in Serum or Plasma ID Date Data Source [id number] 12/28/2018 06:44:00 AM EDT [facility] Name Value Range Interpretation Description Data Sup porting Code Source(s) Document(s ) Urea 13 mg/dL [place] nitrogen Hospital [Mass/volume ] in Serum or Plasma ID Date Data Source [id number] 12/28/2018 06:44:00 AM EDT [facility] Value Range Interpretation Code Description Data Mary Kate rce(s) Supporting Document(s ) Anion gap in 14 [facility] Serum or [facility] Plasma ID Date Data Source [id number] 12/28/2018 06:44:00 AM EDT [facility] Name Value Range Interpretation Description Data Sup porting Code Source(s) Document(s ) Carbon 24 mmol/L [facility] dioxide, Hospital total [Moles/volu me] in Serum or Plasma ID Date Data Source [id number] 12/28/2018 [facility]44[facility] Name Value Range Interpretation Description Data Sup porting Code Source(s) Document(s ) Chloride 104 [facility] [Moles/volum mmol/L Hospital e] in Serum or Plasma ID Date Data Source [id number] 12/28/2018 06:44:00 AM EDT [facility] Name Value Range Interpretation Description Data Sup porting Code Source(s) Document(s ) Potassium 4.7 [facility] [Moles/volume mmol/L Hospital ] in Serum or Plasma ID Date Data Source [id number] 12/28/2018 06:44:00 AM EDT [facility] Value Range Interpretation Description Data Sup porting Code Source(s) Document(s ) Sodium 137 mmol/L [place] [Moles/volu Hospital fl] in Serum or Plasma ID Date Data Source [id number] 12/28/2018 06:44:00 AM EDT [facility] Value Range Interpretation Description Data Sup porting Code Source(s) Document(s ) Glucose 118 mg/dL [place] [Mass/volume Hospital ] in Serum or Plasma ID Date Data Source [id number] 12/28[facility]2018 [facility] Interpretation Description Data Sup porting Code Source(s) Document(s ) Platelet mean 9.[address] [facility] [Entitic volume] in Blood by Automated count ID Date Data Source [id number] 12/28/2018 [facility] Value Range Interpretation Description Data Sup porting Code Source(s) Document(s ) Platelets 306 [place] [#/volume] in 10*3/uL [facility] Blood by Automated count ID Date Data Source [id number] 12/28/2018 06:44[facility] Value Range Interpretation Description Data Sup porting Code Source(s) Document(s ) Erythrocyte 12.4 % [facility] width [Ratio] by Automated count ID Date Data Source [id number] 12/28/2018 06:44[facility] Value Range Interpretation Description Data Sup porting Code Source(s) Document(s ) Erythrocyte mean 34.1 [place] corpuscular g/dL [facility] hemoglobin concentration [Mass/volume] by Automated count ID Date Data Source [id number] 12/28/2018 06:44[facility] Value Range Interpretation Description Data Sup porting Code Source(s) Document(s ) Erythrocyte 30.6 pg [facility] mean Hospital corpuscular hemoglobin [Entitic mass] by Automated count ID Date Data Source [id number] 12/28/2018 06:44:00 AM EDT [facility] Name Value Range Interpretation Description Data Sup porting Code Source(s) Document(s ) Erythrocyte 89.7 fL [facility] mean Hospital corpuscular volume [Entitic volume] by Automated count ID Date Data Source [id number] 12/28/2018 06:44:00 AM EDT [facility] Name Value Range Interpretation Description Data Sup porting Code Source(s) Document(s ) Hematocrit 36.7 % [facility] [Volume Hospital Fraction] of Blood by Automated count ID Date Data Source [id number] 12/28/2018 06:44:00 AM EDT [facility] Value Range Interpretation Description Data Sup porting Code Source(s) Document(s ) Hemoglobin 12.5 g/dL [place] [Mass/volume] Hospital in Blood ID Date Data Source [id number] 12/28/2018 [facility] Range Interpretation Description Data Sup porting Code Source(s) Document(s ) Erythrocytes 4.09 [facility] [#/volume] in 10*6/uL Hospital Blood by Automated count ID Date Data Source [id number] 12/28/2018 06:44:00 AM EDT [facility] Name Value Range Interpretation Description Data Sup porting Code Source(s) Document(s ) Leukocytes 14.5 [facility] [#/volume] in 10*3/uL Hospital Blood by Automated count ID Date Data Source [id number] 12/27/2018 07:58:[facility] Value Range Interpretation Description Data Sup porting Code Source(s) Document(s ) Choriogonadotropin NEGATIVE White ( test) [place] [Presence] in Urine Hospital ID Date Data Source [id number] 12/10/2018 [facility]13[facility] ADA RECOMMENDATIONS: NON-DIABETES: 4.0-6.0% CONTROLLED DIABETES: 6.0-8.0% UNCONTROLLED DIABETE S: UP TO 20%RECOMMENDED ADA RESULT FOR THERAPY: HEMOGLOBIN A1C RESULT LESS DAVID N 7%.NOTE: METHOD CHANGE EFFECTIVE 11/03/14. Name Value Range Interpretation Description Data Sup porting Code Source(s) Document(s ) Hemoglobin 5.9 % [facility] A1c/Hemoglobin. Hospital total in Blood ID Date Data Source [id number] 12/10/2018 12:13:00 PM [facility] UNITS ARE IN ml/min/1.73m2.IF PATIENT IS -TONGAN, MULTIPLY REPORTED RESULT BY 1.21. Name Value Range Interpretation Description Data Sup porting Code Source(s) Document(s ) Glomerular > 60 [facility] filtration mL/min Hospital rate/1.73 sq M.predicted [Volume Rate/Area] in Serum or Plasma by Creatinine-bas ed formula (MDRD) ID Date Data Source [id number] 12/10/2018 12:13:00 PM [facility] THERAPEUTIC RANGES:UNFRACTIONATED HEPARI N THERAPY: 60-90 SECONDSARGATROBAN THERAPY: 49-99 SECONDS Name Value Range Interpretation Description Data Sup porting Code Source(s) Document(s ) aPTT in 35.1 s [facility] Platelet poor [facility] plasma by Coagulation assay ID Date Data Source [id number] 12/10/2018 12:13:00 PM [facility] THERAPEUTIC RANGE FOR STANDARD ORALANTIC OAGULANT THERAPY: 2.0-3.0THERAPEUTIC RANGE FOR HIGH DOSE ORALANTICOAGULANT THERAPY (MECHANICAL HEARTVALVE REPLACEMENT): 2.5-3.5 Name Value Range Interpretation Description Data Sup porting Code Source(s) Document(s ) INR in Platelet 1.1 [facility] poor plasma by Hospital Coagulation assay ID Date Data Source [id number] 12/10/2018 12:13:00 PM EDT [facility] Name Value Range Interpretation Description Data Sup porting Code Source(s) Document(s ) PT panel - 11.9 s [facility] Platelet poor Hospital plasma by Coagulation assay ID Date Data Source [id number] 12/10/2018 12:13:00 PM EDT [facility] Value Range Interpretation Code Description Data Supporting Source(s) Document(s ) NUCLEATED RBCS 0.0 % [facility] (AUTO Hospital DIFF%)DIS ID Date Data Source [id number] 12/10/2018 12:13[facility] Value Range Interpretation Description Data Sup porting Code Source(s) Document(s ) Differential AUTOMATED [facility] cell count [facility] method - Blood ID Date Data Source [id number] 12/10/2018 12:13[facility] Value Range Interpretation Description Data Sup porting Code Source(s) Document(s ) Immature 0.02 [facility] granulocytes 10*3/uL Hospital [#/volume] in Blood by Automated count ID Date Data Source [id number] 12/10/2018 12:13:00 PM EDT [facility] Value Range Interpretation Description Data Sup porting Code Source(s) Document(s ) Basophils 0.07 [facility] [#/volume] in 10*3/uL Hospital Blood by Automated count ID Date Data Source [id number] 12/10/2018 [facility] Name Value Range Interpretation Description Data Sup porting Code Source(s) Document(s ) Eosinophils 0.34 [facility] [#/volume] in 10*3/uL Hospital Blood by Automated count ID Date Data Source [id number] 12/10/2018 12:13:00 PM EDT [facility] Value Range Interpretation Description Data Sup porting Code Source(s) Document(s ) Monocytes 0.49 [facility] [#/volume] in 10*3/uL Hospital Blood by Automated count ID Date Data Source [id number] 12/10/2018 12:13:00 PM EDT [facility] Value Range Interpretation Description Data Sup porting Code Source(s) Document(s ) Lymphocytes 3.26 [facility] [#/volume] in 10*3/uL Hospital Blood by Automated count ID Date Data Source [id number] 12/10/2018 12:13:00 PM EDT [facility] Value Range Interpretation Description Data Sup porting Code Source(s) Document(s ) Neutrophils 4.35 [facility] [#/volume] in 10*3/uL Hospital Blood by Automated count ID Date Data Source [id number] 12/10/2018 12:[facility] Range Interpretation Description Data Sup porting Code Source(s) Document(s ) Nucleated 0.0 % [facility] erythrocytes/10 Hospital 0 leukocytes [Ratio] in Blood by Automated count ID Date Data Source [id number] 12/10/2018 12[facility]13[facility] Value Range Interpretation Description Data Sup porting Code Source(s) Document(s ) Immature 0.2 % [facility] granulocytes/10 Hospital 0 leukocytes in Blood by Automated count ID Date Data Source [id number] 12/10/2018 12:13[facility] Value Range Interpretation Description Data Sup porting Code Source(s) Document(s ) Basophils/100 0.8 % [facility] leukocytes in Hospital Blood by Automated count ID Date Data Source [id number] 12/10/2018 12:13:00 PM [facility] Name Value Range Interpretation Description Data Sup porting Code Source(s) Document(s ) Eosinophils/100 4.0 % [facility] leukocytes in Hospital Blood by Automated count ID Date Data Source [id number] 12/10/2018 12:13:00 PM EDT [facility] Name Value Range Interpretation Description Data Sup porting Code Source(s) Document(s ) Monocytes/100 5.7 % [facility] leukocytes in Hospital Blood by Automated count ID Date Data Source [id number] 12/10/2018 12:13:00 PM [facility] Name Value Range Interpretation Description Data Sup porting Code Source(s) Document(s ) Lymphocytes/10 38.2 % [facility] 0 leukocytes Hospital in Blood by Automated count ID Date Data Source [id number] 12/10/2018 12:13:00 PM T [facility] Name Value Range Interpretation Description Data Sup porting Code Source(s) Document(s ) Neutrophils/10 51.1 % [facility] 0 leukocytes Hospital in Blood by Automated count Procedure Social History Code Duration Value Status Description Data Source(s ) Smoking 08/05/2019 Current Smoker completed Current Smoker eCW3 ( [place] 12:00:00 AM [facility]) Smoking 08/05/2019 Current Smoker completed Current Smoker eCW3 ( [place] 12:00:00 AM [facility]) Smoking 08/05/2019 Current Smoker completed Current Smoker eCW3 ( [place] 12:00:00 AM [facility]) Smoking 08/05/2019 Current Smoker completed Current Smoker eCW3 ( [place] 12:00:00 AM [facility]) Smoking 08/05/2019 Current Smoker completed Current Smoker eCW3 ( [place] 12:00:00 AM [facility]) Smoking 08/02/2019 Current Smoker completed Current Smoker eCW3 ( [place] 12:00:00 AM [facility]) Smoking 12/27/2018 Ex-smoker completed Ex-smoker (finding) [place] 08:24:00 AM EDT (finding) Hospital Smoking 12/23/2018 Current Smoker completed Current Smoker eCW3 ( [place] 12:00:00 AM [facility]) Smoking 12/23/2018 Current Smoker completed Current Smoker eCW3 ( [place] 12:00:00 AM [facility]) Smoking 09/07/2018 Current Smoker completed Current Smoker eCW3 ( [place] 12:00:00 AM [facility]) Smoking 05/12/2018 Current Smoker completed Current Smoker eCW3 ( [place] 12:00:[address] [facility]) Smoking 05/12/2018 Current Smoker completed Current Smoker eCW3 ( [place] 12:00:[address] [facility]) Smoking 05/12/2018 Current Smoker completed Current Smoker eCW3 ( [place] 12:00:[address] [facility]) Smoking 05/12/2018 Current Smoker completed Current Smoker eCW3 ( [place] 12:00:[address] [facility]) Current Smoker completed Current Smoker eCW3 ( [facility]) Current Smoker completed Current Smoker eCW3 ( [facility]) Current Smoker completed Current Smoker eCW3 ( [facility]) Current Smoker completed Current Smoker eCW3 ( [facility]) Current Smoker completed Current Smoker eCW3 ( [facility]) Current Smoker completed Current Smoker eCW3 ( [facility]) Current Smoker completed Current Smoker eCW3 ( [facility]) Smoking Unknown if ever completed Unknown if ever [facility] [place] smoked smoked Hospital Smoking Unknown if ever completed Unknown if ever [facility] [place] smoked smoked Hospital Current Smoker completed Current Smoker eCW3 ( [facility]) Current Smoker completed Current Smoker eCW3 ( [facility]) Current Smoker completed Current Smoker eCW3 ( [facility]) Current Smoker completed Current Smoker eCW3 ( [facility]) Current Smoker completed Current Smoker eCW3 ( [facility]) Current Smoker completed Current Smoker eCW3 ( [facility]) Vital Signs ID Date Data Source UNK Name Value Range Interpretation Code Description Data Source(s) Diastolic blood 70 mm[Hg] 70 mm[Hg] [facility] pressure Hospital Systolic blood 116 mm[Hg] 116 mm[Hg] [facility] ns pressure Hospital Respiratory rate 20 /min 20 /min [facility] Heart rate 56 /min 56 /min [facility] Body temperature 36.55093 36.15393 [facility] Body temperature 97.5 [degF] 97.5 [degF] [facility] Body mass index 33.8 kg/m2 33.8 kg/m2 [facility] (BMI) [Ratio] Hospital Body weight 179 [lb_av] 179 [lb_av] [facility] Diastolic blood 98 mm[Hg] 98 mm[Hg] [facility] pressure Hospital Systolic blood 143 mm[Hg] 143 mm[Hg] [facility] Hospital Respiratory rate 18 /min 18 /min [facility] Heart rate 87 /min 87 /min [facility] Body temperature 36.98320 36.84919 [facility] Body temperature 98.0 [degF] 98.0 [degF] [facility] Body mass index 35.0 kg/m2 35.0 kg/m2 [facility] (BMI) [Ratio] Hospital Body weight 180.36 180.36 [lb_av] [facility] [lb_av] [facility] Diastolic blood 79 mm[Hg] 79 mm[Hg] [facility] Hospital Systolic blood 114 mm[Hg] 114 mm[Hg] [facility] pressure Hospital Respiratory rate 19 /min 19 /min [facility] Heart rate 80 /min 80 /min [facility] Body temperature 36.45258 36.66217 [facility] Body temperature 97.7 [degF] 97.7 [degF] [facility] Diastolic blood 84 mm[Hg] 84 mm[Hg] eCW3 ([facility]) Systolic blood 124 mm[Hg] 124 mm[Hg] eCW3 ([facility]) Body temperature 97.6 [degF] 97.6 [degF] eCW3 ( [facility]) Body mass index 44.96 kg/m2 44.96 kg/m2 eCW3 ([facility] (BMI) [Ratio] [facility]) Body weight 238 [lb_av] 238 [lb_av] eCW3 ([facility]) Body height 61 [in_i] 61 [in_i] eCW3 ([facility]) Body mass index 46.7 kg/m2 46.7 kg/m2 [facility] (BMI) [Ratio] Hospital Body weight 239 [lb_av] 239 [lb_av] [facility] Body mass index 44.59 kg/m2 44.59 kg/m2 eCW3 ([facility] (BMI) [Ratio] [facility]) Body weight 236 [lb_av] 236 [lb_av] eCW3 ([facility]) Body height 61 [in_i] 61 [in_i] eCW3 ([facility]) Diastolic blood 86 mm[Hg] 86 mm[Hg] eCW3 ([facility]) Systolic blood 125 mm[Hg] 125 mm[Hg] eCW3 ([facility]) Body temperature 98.6 [degF] 98.6 [degF] eCW3 ( [facility]) Body mass index 44.59 kg/m2 44.59 kg/m2 eCW3 ([facility] (BMI) [Ratio] [facility]) Body weight 236 [lb_av] 236 [lb_av] eCW3 ([facility]) Body height 61 [in_i] 61 [in_i] eCW3 ([facility]) Body mass index 45.15 kg/m2 45.15 kg/m2 eCW3 ([facility] (BMI) [Ratio] [facility]) Body weight 239 [lb_av] 239 [lb_av] eCW3 ([facility]) Body height 61 [in_i] 61 [in_i] eCW3 ([facility]) Diastolic blood 78 mm[Hg] 78 mm[Hg] eCW3 ([facility]) Systolic blood 117 mm[Hg] 117 mm[Hg] eCW3 ([facility]) Body temperature 98.0 [degF] 98.0 [degF] eCW3 ( [facility]) Body mass index 45.15 kg/m2 45.15 kg/m2 eCW3 ([facility] (BMI) [Ratio] [facility]) Body weight 239 [lb_av] 239 [lb_av] eCW3 ([facility]) Body height 61 [in_i] 61 [in_i] eCW3 ([facility]) Body mass index 44.78 kg/m2 44.78 kg/m2 eCW3 ([facility] (BMI) [Ratio] [facility]) Body weight 237 [lb_av] 237 [lb_av] eCW3 ([facility]) Body height 61 [in_i] 61 [in_i] eCW3 ([facility]) Body mass index 44.40 kg/m2 44.40 kg/m2 eCW3 ([facility] (BMI) [Ratio] [facility]) Body weight 235 [lb_av] 235 [lb_av] eCW3 ([facility]) Body height 61 [in_i] 61 [in_i] eCW3 ([facility]) Body mass index 44.40 kg/m2 44.40 kg/m2 eCW3 ([facility] (BMI) [Ratio] [facility]) Body weight 235 [lb_av] 235 [lb_av] eCW3 ([facility]) Body height 61 [in_i] 61 [in_i] eCW3 ([facility]) Patient Treatment Plan of Care Planned Activity Planned Date Details Description Data Source (s) Nystatin [id number] UNT/ML 08/02/2019 12:00:00 eCW3 ([place] Topical Cream [facility]) Albuterol 0.83 MG/ML 04/29/2019 12:00:00 eCW3 ([place] Inhalant Solution [facility]) Ibuprofen 600 MG Oral 12/23/2018 12:00:00 eCW3 ([place] Tablet [facility]) Ibuprofen 600 MG Oral 12/23/2018 12:00:00 eCW3 ([place] Tablet [facility]) 200 ACTUAT Albuterol 07/25/2017 12:00:00 eCW3 ([place] 0.09 MG/ACTUAT Metered AM [facility]) Dose Inhaler [Ventolin] 200 ACTUAT Albuterol 07/25/2017 12:00:00 eCW3 ([place] 0.09 MG/ACTUAT [facility] Dose Inhaler [Ventolin] 200 ACTUAT Albuterol 07/25/2017 12:00:00 eCW3 ([place] 0.09 MG/ACTUAT [facility]ered [facility]) Dose Inhaler [Ventolin] 200 ACTUAT Albuterol 07/25/2017 12:00:00 eCW3 ([place] 0.09 MG/ACTUAT [facility]ered [facility]) Dose Inhaler [Ventolin] Nystatin [id number] UNT/ML eCW3 ([facility] Topical [facility]) Nystatin 281262 UNT/ML eCW3 ([facility] Top[facility]) Nystatin 394176 UNT/ML eCW3 ([facility] Top[facility]) Nystatin 611529 UNT/ML eCW3 ([facility]) Nystatin 226463 UNT/ML eCW3 ([facility] Top[facility]) 200 ACTUAT Albuterol eCW3 ([place] 0.09 MG/ACTUAT [facility]) Dose Inhaler [Ventolin]
--- NOTE | 2019-12-25 02:15 | PDOC ---
Attending Attestation - Resident Resident Name: Jai Salcedo - ED Attending Attestation I have performed the following: I have examined & evaluated the patient, The case was reviewed & discussed with the resident, I agree w/resident's findings & plan - HPI HPI: 12/25/19 04:12 Pt comes with right ankle pain that came out of nowhere. Pt has swelling at the ankle she has pain over the medial and lateral malleoli and posterior ankle and she has warmth of the joint. Pt has normal appearing XRAYS; small well corticated avulsed bones that are mm in size. Pt will get labs to r/o septic joint or other inflammatory pathology - Physicial Exam PE: 12/25/19 06:27 Pt has normal heart and lungs Heart RRR lung: CTA B abd soft NT ND ext: no c/c/e of calves; left ankle and foot (which pt had injurd recently) is normal and not swollen Right foor is warm and swollen, exquisite tenderness of the foot, particularluy on the bilateral maleolli Pt is afebrile however - Medical Decision Making 12/25/19 06:29 Pt will be admitted for septic joint; WBC is 17 Discharge - Discharge Information Problems reviewed: Yes Clinical Impression/Diagnosis: Septic arthritis Condition: Stable - Follow up/Referral - Patient Discharge Instructions - Post Discharge Activity
[2019-12-25] MEDS ORDERED: ACETAMINOPHEN 500 MG TABLET (FP) PO ONE (02:50)
--- NOTE | 2019-12-25 02:55 | PDOC ---
History of Present Illness - General Chief Complaint: Pain Stated Complaint: RIGHT ANKLE PAIN Time Seen by Provider: 12/25/19 02:14 - History of Present Illness Initial Comments: 39 YOF h/o asthma, s/p cholecystectomy and bariatric surgery presents with right ankle pain of 1 day. Patient reports pain is located in right foot, ankle, and lower leg, radiating up from foot to posterior right leg, 10/10 in intensity, aching and throbbing in quality, unable to ambulate. Denies recent trauma to the area, denies prolonged immobility, OCP use, h/o cancer. Denies fever, chills, nausea, vomiting, diarrhea, CP, SOB, recent travel or sick contacts. Constitutional: No Weight Change, No Fever, No Chills, No Night Sweats, No Fatigue, No Malaise ENT/Mouth: No Hearing Changes, No Ear Pain, No Nasal Congestion, No Sinus Pain, No Hoarseness, No sore throat, No Rhinorrhea, No Swallowing Difficulty Eyes: No Eye Pain, No Swelling, No Redness, No Foreign Body, No Discharge, No Vision Changes Cardiovascular: No Chest Pain, No SOB, No PND, No Dyspnea on Exertion, No Orthopnea, No Claudication, No Edema, No Palpitations Respiratory: No Cough, No Sputum, No Wheezing, No Smoke Exposure, No Dyspnea Gastrointestinal: No Nausea, No Vomiting, No Diarrhea, No Constipation, No Pain, No Heartburn, No Anorexia, No Dysphagia, No Hematochezia, No Melena, No Flatulence, No Jaundice Genitourinary: No Dysmenorrhea, No DUB, No Dyspareunia, No Dysuria, No Urinary Frequency, No Hematuria, No Urinary Incontinence, No Urgency, No Flank Pain, No Urinary Flow Changes, No Hesitancy Musculoskeletal: + Arthralgias, No Myalgias, No Joint Swelling, No Joint Stiffness, No Back Pain, No Neck Pain, No Injury History Skin: No Skin Lesions, No Pruritis, No Hair Changes, No Breast/Skin Changes, No Nipple Discharge Neuro: No Weakness, No Numbness, No Paresthesias, No Loss of Consciousness, No Syncope, No Dizziness, No Headache, No Coordination Changes, No Recent Falls Psych: No Anxiety/Panic, No Depression, No Insomnia, No Personality Changes, No Delusions, No Rumination, No SI/HI/AH/VH, No Social Issues, No Memory Changes, No Violence/Abuse Hx., No Eating Concerns Heme/Lymph: No Bruising, No Bleeding, No Transfusions History, No Lymphad enopathy Endocrine: No Polyuria, No Polydipsia, No Temperature Intolerance Past History - Medical History Allergies/Adverse Reactions: Allergies Allergy/AdvReac Type Severity Reaction Status Date / Time shellfish derived Allergy Verified 12/25/19 01:14 Home Medications: Ambulatory Orders NK [No Known Home Medication] 12/25/19 Anemia: No Asthma: Yes Cancer: No Cardiac Disorders: No CVA: No COPD: No CHF: No Dementia: No Diabetes: No GI Disorders: No Disorders: No HTN: No Hypercholesterolemia: No Liver Disease: No Seizures: No Thyroid Disease: No - Reproductive History Is Patient Now?: No - Psycho-Social/Smoking History Smoking History: Current every day smoker Have you smoked in the past 12 months: No Number of Cigarettes Smoked Daily: 3 Information on smoking cessation initiated: No - Substance Abuse Hx (Audit-C & DAST Scrn) How often the patient has a drink containing alcohol: 2-4 times / month Score: In Men: 4 or > Positive; In Women: 3 or > Positive: 2 Screen Result (Pos requires Nsg. Audit-10AR): Negative *Physical Exam - Vital Signs Last Vital Signs Temp Pulse Resp BP Pulse Ox 98 F 85 18 152/85 100 12/25/19 01:11 12/25/19 01:11 12/25/19 01:11 12/25/19 01:11 12/25/19 01:11 - Physical Exam General Appearance: Yes: Nourished, Appropriately Dressed HEENT: positive: EOMI, XAVI, Normal Voice, Symmetrical Neck: positive: Trachea midline, Normal Thyroid Respiratory/Chest: positive: Lungs Clear, Normal Breath Sounds Cardiovascular: positive: Regular Rhythm, Regular Rate, S1, S2 Gastrointestinal/Abdominal: positive: Normal Bowel Sounds, Flat, Soft Musculoskeletal: positive: Other (right ankle swollen, right foot, ankle, leg TTP) 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 - patient afebrile - exam reveals swollen, warm right ankle with ttp of dorsum of right foot, ankle, and posterior right leg - will do XRAY foot and ankle on right side - Imagining unrevealing of fracture - will do CBC, CMP, CRP, ESR - white count of 17s, CRP of .7 - will admit patient for possible septic joint 12/25/19 06:46 Discharge - Discharge Information Problems reviewed: Yes Clinical Impression/Diagnosis: Septic arthritis - Follow up/Referral Referrals: Janie Carmona MD [Primary Care Provider] - - Patient Discharge Instructions - Post Discharge Activity
[2019-12-25] MEDS ORDERED: ACETAMINOPHEN 325 MG TABLET (FP) ONE (02:56)
[2019-12-25] MEDS ORDERED: IBUPROFEN 400 MG TABLET (FP) PO ONE ×2 (03:13→03:18)
[2019-12-25 04:21] LABS: HEMATOCRIT 41.4 % (32.4-45.2); HEMOGLOBIN 14.1 GM/dL (10.7-15.3); MCH 31.9 pg (25.7-33.7); MCHC 34.1 g/dl (32.0-36.0); MEAN CELL VOLUME 93.7 fl (80-96); MEAN PLT VOLUME 8.5 fl (7.5-11.1); PLATELET COUNT 268 K/MM3 (134-434); RBC 4.41 M/mm3 (3.60-5.2); RDW 13.3 % (11.6-15.6); WHITE BLOOD COUNT 17.1 K/mm3 (4.0-10.0)
[2019-12-25 04:43] LABS: ALBUMIN 4.2 g/dl (3.4-5.0); BILIRUBIN,TOTAL 0.6 mg/dL (0.2-1); BLOOD UREA NITROGEN 11.3 mg/dL (7-18); CALCIUM 8.5 mg/dL (8.5-10.1); CREATININE 0.7 mg/dL (0.55-1.3); POTASSIUM 4.1 mmol/L (3.5-5.1); TOT PROT 7.3 g/dl (6.4-8.2); URIC ACID 4.7 mg/dL (2.6-7.2)
[2019-12-25] MEDS ORDERED: CEFTRIAXONE 2 GM in DEXTROSE 5%-WATER - 50 ML IVPB ONE (06:10)
[2019-12-25] MEDS ORDERED: VANCOMYCIN 1,000 MG in DEXTROSE 5%-WATER - 250 ML IVPB ONE (06:11)
[2019-12-25] MEDS ORDERED: CEFTRIAXONE 2 GM/100 ML BAG IVPB ONE (06:13)
--- NOTE | 2019-12-25 07:15 | PDOC ---
*Physical Exam - Vital Signs Last Vital Signs Temp Pulse Resp BP Pulse Ox 97.6 F 76 19 127/65 100 12/25/19 06:28 12/25/19 06:28 12/25/19 06:28 12/25/19 06:28 12/25/19 06:28 ED Treatment Course - LABORATORY CBC & Chemistry Diagram: 12/25/19 03:30 12/25/19 03:30 - ADDITIONAL ORDERS Additional order review: Laboratory Results 12/25/19 03:30 Sodium 138 Potassium 4.1 Chloride 107 Carbon Dioxide 28 Anion Gap 3 L BUN 11.3 Creatinine 0.7 Est GFR (CKD-EPI)AfAm 125.61 Est GFR (CKD-EPI)NonAf 108.38 Random Glucose 97 Uric Acid 4.7 Calcium 8.5 Total Bilirubin 0.6 AST 15 ALT 18 Alkaline Phosphatase 92 C-Reactive Protein 0.7 H Total Protein 7.3 Albumin 4.2 12/25/19 03:30 RBC 4.41 MCV 93.7 MCHC 34.1 RDW 13.3 MPV 8.5 - RADIOLOGY Radiology Studies Ordered: Category Date Time Status CHEST X-RAY PORTABLE* [RAD] Stat Radiology 12/25/19 07:06 Ordered - Medications Given in the ED: ED Medications Discontinued Medications Generic Name Dose Route Start Last Admin Trade Name Freq PRN Reason Stop Dose Admin Acetaminophen 975 mg 12/25/19 02:50 12/25/19 02:58 Tylenol - PO 12/25/19 02:51 975 mg ONCE ONE Administration Ceftriaxone Sodium 2 gm/ 50 mls @ 100 mls/hr 12/25/19 06:10 12/25/19 06:43 Dextrose IVPB 12/25/19 06:39 100 mls/hr ONCE ONE Administration Ibuprofen 400 mg 12/25/19 03:13 12/25/19 03:21 Motrin - PO 12/25/19 03:14 400 mg ONCE ONE Administration Medical Decision Making - Medical Decision Making 12/25/19 07:14 Pt received on s/o from Dr. Rg. This is a 39 y/o female presenting with 1 day of right ankle pain. Denies trauma/fall. Will admit for concern for septic joint. 12/25/19 09:07 US shows no signs of DVT in the RLE. 12/25/19 10:36 ARTHROCENTSIS PROCEDURE NOTE Indication: Effusion / rule out septic joint Consent: the risks and benefits of arthrocentesis discussed with patient, including the risk of bleeding, infection, and technical failure. The risks of not performing the procedure, failure to diagnose septic joint with resultant systemic infection, discussed with the patient. The alternatives of performing the procedure also discussed. Written consent was obtained following the discussion. [place] Protocol: A timeout was performed and the correct patient and site were verified. The right ankle joint was prepped and draped in proper sterile fashion. The overlying skin was anesthetized with 3 ml of 1% lidocaine. A 18 gauge needle was used to aspirate fluid from the joint using appropriate anatomic landmarks. 2 cc fluid was obtained from the joint. The fluid was then sent to the lab for appropriate studies. The site was bandaged and no complications were noted. The patient tolerated the procedure well. Post-Procedure Diagnosis: Effusion Complications: None Specimens Removed: fluid only Prosthetic devices/implants: none. 12/25/19 12:45 Labs reviewed. Laboratory Last Values WBC 17.1 K/mm3 (4.0-10.0) H 12/25/19 03:30 RBC 4.41 M/mm3 (3.60-5.2) 12/25/19 03:30 Hgb 14.1 GM/dL (10.7-15.3) 12/25/19 03:30 Hct 41.4 % (32.4-45.2) 12/25/19 03:30 MCV 93.7 fl (80-96) 12/25/19 03:30 MCH 31.9 pg (25.7-33.7) 12/25/19 03:30 MCHC 34.1 g/dl (32.0-36.0) 12/25/19 03:30 RDW 13.3 % (11.6-15.6) 12/25/19 03:30 Plt Count 268 K/MM3 (134-434) 12/25/19 03:30 MPV 8.5 fl (7.5-11.1) 12/25/19 03:30 ESR 3 mm/hr (0-20) 12/25/19 03:30 Sodium 138 mmol/L (136-145) 12/25/19 03:30 Potassium 4.1 mmol/L (3.5-5.1) 12/25/19 03:30 Chloride 107 mmol/L (98-107) 12/25/19 03:30 Carbon Dioxide 28 mmol/L (21-32) 12/25/19 03:30 Anion Gap 3 MMOL/L (8-16) L 12/25/19 03:30 BUN 11.3 mg/dL (7-18) 12/25/19 03:30 Creatinine 0.7 mg/dL (0.55-1.3) 12/25/19 03:30 Est GFR (CKD-EPI)AfAm 125.61 12/25/19 03:30 Est GFR (CKD-EPI)NonAf 108.38 12/25/19 03:30 Random Glucose 97 mg/dL (74-106) 12/25/19 03:30 Uric Acid 4.7 mg/dL (2.6-7.2) 12/25/19 03:30 Calcium 8.5 mg/dL (8.5-10.1) 12/25/19 03:30 Total Bilirubin 0.6 mg/dL (0.2-1) 12/25/19 03:30 AST 15 U/L (15-37) 12/25/19 03:30 ALT 18 U/L (13-61) 12/25/19 03:30 Alkaline Phosphatase 92 U/L (45-117) 12/25/19 03:30 C-Reactive Protein 0.7 MG/DL (0.00-0.3) H 12/25/19 03:30 Total Protein 7.3 g/dl (6.4-8.2) 12/25/19 03:30 Albumin 4.2 g/dl (3.4-5.0) 12/25/19 03:30 Fluid Source Synovial 12/25/19 09:51 Fluid WBC 810931 /mm3 12/25/19 09:51 Fluid RBC 216519 /mm3 12/25/19 09:51 Synovial Crystals Negative 12/25/19 09:51 Pt receiving vanc and rocephin. 12/25/19 12:47 Case d/w Dr. Lugo's PA. Will continue to follow and evaluate. 12/25/19 12:59 Case d/w Dr. Felder who accepts the patient for admission. Discharge - Discharge Information Problems reviewed: Yes Clinical Impression/Diagnosis: Septic arthritis Condition: Stable - Admission Yes - Follow up/Referral Referrals: Janie Carmona MD [Primary Care Provider] - - Patient Discharge Instructions - Post Discharge Activity Procedures - Arthrocentesis Indication: Septic Joint Arthrocentesis Site: right: Ankle Flexion: 20-30 degree Betadine Prep: Yes Sterile Dressing Applied: No Dry Tap: No Fluid Color: Straw colored Fluid Amount mL: 2 Anesthesia: 1% Lidocaine Needle Size (guage): 18g Complications: No
[2019-12-25] MEDS ORDERED: VANCOMYCIN 1 GRAM (PRE-DOCKED) 1,000 MG/250 ML BAG IVPB ONE (07:20)
[2019-12-25] MEDS ORDERED: oxyCODONE HCL 5 MG TABLET PO ONE (08:03)
[2019-12-25] MEDS ORDERED: oxyCODONE HCL 5 MG TABLET ONE (08:04)
[2019-12-25] MEDS ORDERED: LIDOCAINE HCL 1%, 10 MG/ML (50 mL VIAL) SQ ONE (09:13)
[2019-12-25] MEDS ORDERED: LIDOCAINE HCL 1%, 10 MG/ML (20ML VIAL) ONE (09:18)
--- NOTE | 2019-12-25 09:24 | EKG ---
Test Reason : Blood Pressure : / mmHG Vent. Rate : 081 BPM Atrial Rate : 081 BPM P-R Int : 162 ms QRS Dur : 090 ms QT Int : 384 ms P-R-T Axes : 023 008 022 degrees QTc Int : 446 ms NORMAL SINUS RHYTHM NORMAL ECG NO PREVIOUS ECGS AVAILABLE Confirmed by Mary Ann Mooney ([id number]) on 12/25/2019 9:24:13 AM Referred By: Confirmed By:Mary Ann Mooney
[2019-12-25 11:49] LABS: BF WBC & OTHER NUCLEATED CELLS 139484 /mm3
[2019-12-25 12:48] LABS: CRYSTALS,SYNOVIAL FLUID NEGATIVE
--- NOTE | 2019-12-25 12:55 | CON.ORTH ---
Consult Reason for Consultation:: right ankle pain - Past Medical History ...LMP: 11/24/19 ...: No - Alcohol/Substance Use Hx Alcohol Use: Yes (socia) - Smoking History Smoking history: Current every day smoker Have you smoked in the past 12 months: No Aproximately how many cigarettes per day: 3 Home Medications - Allergies Allergies/Adverse Reactions: Allergies Allergy/AdvReac Type Severity Reaction Status Date / Time shellfish derived Allergy Verified 12/25/19 01:14 - Home Medications Home Medications: Ambulatory Orders NK [No Known Home Medication] 12/25/19 Physical Exam for Ortho Vital Signs: Vital Signs Temperature 97.6 F 12/25/19 06:28 Pulse Rate 76 12/25/19 06:28 Respiratory Rate 19 12/25/19 06:28 Blood Pressure 127/65 12/25/19 06:28 O2 Sat by Pulse Oximetry (%) 100 12/25/19 06:28 Labs: CBC, BMP 12/25/19 03:30 12/25/19 03:30 - Lower Extremity Ankle: Yes: Right, Limited ROM (+ swelling, mild erythema, + ttp, limited rom sec to pain, nvi), Pain, Swelling, Tenderness, Other Imaging - Results X-ray: Report Reviewed, Image Reviewed Ultrasound: Report Reviewed, Image Reviewed Assessment/Plan 39 YOF h/o asthma, s/p cholecystectomy and bariatric surgery presents with right ankle pain of 1 day. Patient reports pain is located in right foot, ankle, and lower leg, radiating up from foot to posterior right leg, 10/10 in intensity, aching and throbbing in quality, unable to ambulate. Denies recent trauma to the area, denies prolonged immobility, OCP use, h/o cancer. Denies fever, chills, nausea, vomiting, diarrhea, CP, SOB, recent travel or sick contacts. Right ankle was aspirated in ER, ~2 ccs of cloudy fluid obtained. Pt reports feeling better and having more ROM after aspiration and IV abx. Denies any numbness or tingling. a/p- right ankle septic joint Risk and benefits were d/w pt in detail IV abx f/u cultures No surgical intervention at this time, will observe May need washout if no improvement with IV abx will follow d/w Dr. Lugo
--- NOTE | 2019-12-25 13:00 | HP ---
CHIEF COMPLAINT: R ankle pain PCP: Dr. Carmona HISTORY OF PRESENT ILLNESS: 39yo F with h/o of mild intermittent asthma, s/p gastric sleeve (over 1 yr ago; completed all phases) who presents today with 1 day of R ankle pain. Patient denies any trauma or injury to the ankle. She woke up 1 day ago with reduced ROM in her R ankle and slight pain. The pain progressed through the day and developed throbbing which radiated out from the ankle. Patient reports she was unable to walk at some point which prompted ER evaluation. Patient denies any fever/chill. She denies any trauma that occurred to the ankle. She has 1 dog without any notable scratches or bites to the ankle in question. She denies any rashes or insect bites that she can recall. She has never had a prior septic joint and denies any recurrent infections. She is in a sexually active monogamous relationship with her and denies any discharge or difficulties with urinating. Otherwise rest of ROS negative. Recent Travel: Denies PAST MEDICAL HISTORY: As above PAST SURGICAL HISTORY: None. 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 No other joint pathology in rest of family. Allergies shellfish derived Allergy (Verified 12/25/19 01:14) HOME MEDICATIONS: Home Medications Medication Instructions Recorded NK [No Known Home Medication] 12/25/19 REVIEW OF SYSTEMS As per HPI PHYSICAL EXAMINATION Vital Signs - 24 hr 12/25/19 12/25/19 01:11 06:28 Temperature 98 F 97.6 F Pulse Rate 85 Pulse Rate [ 76 Left Radial] Respiratory 18 19 Rate Blood Pressure 152/85 Blood Pressure 127/65 [Right Arm] O2 Sat by Pulse 100 100 Oximetry (%) GENERAL: Awake, alert, and fully oriented, in no acute distress. HEENT: NC/AT, glasses +, ARISTIDES, sclera anicteric, MMM LUNGS: CTA bilaterally. No wheezes, and no crackles. No accessory muscle use. HEART: RRR, normal S1 and S2 without murmur ABDOMEN: Soft, NT/ND, normoactive bowel sounds MUSCULOSKELETAL: No bony arthropathies, R ankle joint effusion appreciated with TTP and increased warmth, ROM diminished in R ankle due to effusion/pain, however no other ROM limitations EXTREMITIES: 2+ pulses, No calf tenderness. See above PSYCHIATRIC: Cooperative. Good eye contact. Appropriate mood and affect. SKIN: Warm, dry, cellulitic appearance around R ankle, no other rashes or bites present, no signs of trauma around R ankle joint Laboratory Results - last 24 hr 12/25/19 12/25/19 12/25/19 03:30 03:30 03:30 WBC 17.1 H RBC 4.41 Hgb 14.1 Hct 41.4 MCV 93.7 MCH 31.9 MCHC 34.1 RDW 13.3 Plt Count 268 MPV 8.5 ESR 3 Sodium 138 Potassium 4.1 Chloride 107 Carbon Dioxide 28 Anion Gap 3 L BUN 11.3 Creatinine 0.7 Est GFR (CKD-EPI)AfAm 125.61 Est GFR (CKD-EPI)NonAf 108.38 Random Glucose 97 Uric Acid 4.7 Calcium 8.5 Total Bilirubin 0.6 AST 15 ALT 18 Alkaline Phosphatase 92 C-Reactive Protein 0.7 H Total Protein 7.3 Albumin 4.2 Fluid Source Fluid WBC Fluid RBC Synovial Crystals 12/25/19 09:51 WBC RBC Hgb Hct MCV MCH MCHC RDW Plt Count MPV ESR Sodium Potassium Chloride Carbon Dioxide Anion Gap BUN Creatinine Est GFR (CKD-EPI)AfAm Est GFR (CKD-EPI)NonAf Random Glucose Uric Acid Calcium Total Bilirubin AST ALT Alkaline Phosphatase C-Reactive Protein Total Protein Albumin Fluid Source Synovial Fluid WBC [id number] Fluid RBC [id number] Synovial Crystals Negative ASSESSMENT/PLAN: Monoarticular Septic Arthritis Leukocytosis to above --Synovial fluid studies reviewed: purulent 2cc of fluid per report of ED --Ortho consulted: will observe and may have washout tomorrow pending resulting improvement or lack thereof --Given immunocompetent patient will cover Vancomycin 1250mg IVPB daily (fourth dose on 12/27 for trough purposes) and Rocephin 2gm daily --ID consulted for duration and specific abx usage --F/U synovial fluid gram stain/culture and crystal studies --Sending lyme study with next lab draw due to unclear etiology --Uric acid 4.7 (WNL) --can have regular diet (bariatric pt completed phases) and NPO after midnight in case of washout Dispo: M/S Piyush Felder DO - IM Family Medical History Family History: As Documented Visit type - Emergency Visit Emergency Visit: Yes ED Registration Date: 12/25/19 Care time: The patient presented to the Emergency Department on the above date and was hospitalized for further evaluation of their emergent condition. - New Patient This patient is new to me today: Yes Date on this admission: 12/25/19 - Critical Care Critical Care patient: No
[2019-12-25] MEDS ORDERED: ACETAMINOPHEN 325 MG TABLET (FP) PO PRN (13:13)
--- OUTSIDE RECORDS SUMMARY | 2019-12-25 13:19 | XMS ---
:1980 [facility] Providers Name Role Phone [...] is protected by Article 27-F of the [facility] Public Health law. If you continue you may haveaccess to information: Regarding HIV / AIDS; Provided by facilities licensed or operated by the [facility] Office of Mental Health; or Provided by the [facility] Office for People With Developmental Disabilities. If such information is present, then the following [facility] mandated warning applies: This information has been [...] law may result in a fine or prison sentence or both. A general authorization for the release of medical or other information is NOT sufficient authorization for further disclosure. 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 Status Observation Data S ource(s) Description Advance No completed [facility] Advance No completed [facility] Advance No completed [facility] Allergies and Adverse Reactions Type Description Substance Reaction Status Data Source(s ) Food allergy shellfish derived shellfish FACE SWELLING-I [facility] Hospital Propensity to shellfish No known shortness of Active eCW3 ([facility] son adverse allergies breath [facility] reactions [...] shellfish No known shortness of Active eCW3 ([facility] son adverse allergies breath [facility] reactions (situation) Care) Propensity to shellfish No known shortness of Active eCW3 ([facility] son adverse allergies breath [facility] reactions (situation) Care) Encounters Encounter Providers Location Date Indications Data Source(s ) Outpatient Attender: Esdras 05/19/2019 CHOLECYSTITIS Yogi Barboza MD 07:30:00 AM Hospital EST - 05/19/2019 07:08:00 AM EST CHOLECYSTITIS Patient discharged. 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 Outpatient [facility] 12/23/2018 eCW3 ([facility] Clinic 12:00:00 AM EDT - [facility] A28 12/23/2018 Care) 12:00:00 AM EDT Inpatient Attender: 12/20/2018 MORBID OBESITY Yogi Barboza 09:15:00 AM EDT - [facility] [place] MDAdmitter: 12/28/2018 Esdras Barboza 05:26:00 PM EDT MD MORBID OBESITY Patient discharged. Outpatient Attender: Sandra Valle 12/13/2018 02:12:[address] [facility] EDT PREOP Outpatient Attender: Sandra 12/10/2018 11:03:00 12/20 Alina Valle MD AM EDT GASTRIC SLEEVE Hospital 12/20 Alina BARBOZA GASTRIC SLEEVE Subsequent [facility] 10/28/2018 12:00:00 e CW3 ([facility] A28 AM EDT - 10/28/2018 [facility] Nutrition 12:00:00 AM EDT Care) Outpatient [facility] 10/27/2018 12:00:00 e CW3 ([facility] A28 AM EDT - 10/27/2018 [facility] 12:00:00 AM EDT Care) A28-Est Therapy [facility] 10/04/2018 12:00:00 eCW3 ([facility] A28 AM EDT - 10/04/2018 [facility] Evaluation & Mgmt 12:00:00 AM EDT Ca re) 20-30 Min Subsequent [facility] 10/01/2018 12:00:00 e CW3 ([facility] A28 AM EDT - 10/01/2018 [facility] Nutrition 12:00:00 AM EDT Care) Outpatient [facility] 09/07/2018 12:00:00 e CW3 ([facility] A28 AM EDT - 09/07/2018 [facility] 12:00:00 AM EDT Care) Subsequent [facility] 09/03/2018 12:00:00 e CW3 ([facility] A28 AM EDT - 09/03/2018 [facility] Nutrition 12:00:00 AM EDT Care) Outpatient Admitter: H 07/26/2018 10:21:00 [facility] AM EDT Medical Susannah De Oliveira Outpatient Admitter: 07/26/2018 12:00:00 [facility] AM EDT Medical Susannah De Oliveira Subsequent [facility] 07/22/2018 12:00:00 e CW3 ([facility] A28 AM EDT - 07/22/2018 [facility] Nutrition 12:00:00 AM EDT Care) Subsequent [facility] 06/17/2018 12:00:00 e CW3 ([facility] A28 AM EDT - 06/17/2018 [facility] Nutrition 12:00:00 AM EDT Care) (NBillable) [facility] 06/07/2018 12:00:00 eCW3 ([facility] A28 AM EST - 06/07/2018 [facility] g/Care Management 12:00:00 AM EST Ca re) (NBillable) [facility] 06/04/2018 12:00:00 eCW3 ([facility] A28 AM EST - 06/04/2018 [facility] g/Care Management 12:00:00 AM EST Ca re) (NBillable) [facility] 05/28/2018 12:00:00 eCW3 ([facility] A28 AM EST - 05/28/2018 [facility] g/Care Management 12:00:00 AM EST Ca re) New Therapy, 30 [facility] 05/21/2018 12:00:00 eCW3 ([facility] A28 AM EST - 05/21/2018 [facility] 12:00:00 AM EST Care) Functional Status Immunizations Vaccine Date Status Description Data Source(s) New in 2011. IIV4 03/09/2018 completed eCW3 ([facility] 03:21:00 PM [facility]) IIV3. This is one of 12/19/2016 completed eCW3 ([facility] two codes replacing CVX 09:00:00 AM EDT [facility]) 15, which is being retired. IIV3. This vaccine code 02/01/2015 completed eCW3 ([place] is one of two which 12:03:00 PM EDT [facility]) replace CVX 15, influenza, split virus. IIV3. This is one of 01/07/2013 completed eCW3 ([facility] son [facility] two codes replacing CVX 02:05:53 PM T [facility]) 15, which is being retired. Medications Medication Brand Start Product Dose Route Administrative Pharmacy [facility] Indications Reaction Description Data Name Date Form Instructions Instructions Source(s) Nystatin Nystat 08/01/ 1.0 active Nystatin e CW3 855875 in 2019 {appl 275989 ([facility] UNT/ML 294966 12:00: icati UNIT/GM [facility] Topical UNIT/G 00 AM on} Health [facility]) Nystatin 560867 UNIT/GM Acetaminoph Oxycod 05/19/ TABLET 1 ORAL [...] ) (2.5 0.083% MG/3ML) 0.083% Albuterol Albute 01/24/ 3.0 active Albuterol eCW3 0.83 MG/ML rol [...] W allan hydrochlori ol Hcl 2018 ed [place] de 50 MG 11:07: Hospital Oral Tablet 00 AM Tramadol EDT Hcl tramadol Tramad 12/28/ TABLET 50 mg ORAL active Wh ite hydrochlori ol Hcl 2019 [place] de 50 MG 11:07: Hospital Oral Tablet 00 AM Tramadol EDT Hcl tramadol Tramad 12/28/ TABLET 50 mg ORAL complet [facility] all[facility] hydrochlori ol Hcl 2018 ed [place] de 50 MG 11:07: Hospital Oral Tablet 00 AM Tramadol EDT Hcl 0.4 ML Enoxap 12/28/ INJECTIO 40 mg SUBCUT complet [facility] Enoxaparin frankie 2018 N ANEOUS ed [place] sodium 100 Sodium 11:03: [facility] [place] MG/ML 00 AM Prefilled EDT Syringe [Lovenox] Enoxaparin Sodium 0.4 ML Enoxap 12/28/ INJECTIO 40 mg SUBCUT active [place] Enoxaparin frankie 2018 N ANEOUS [place] sodium 100 Sodium 11:03: [facility] [place] MG/ML 00 AM Prefilled EDT Syringe [Lovenox] Enoxaparin Sodium Ondansetron Ondans 12/28/ TABLET 4 mg ORAL complet [facility] 4 MG etron 2018 ed [place] Disintegrat Hcl 11:03: Hospit al ing Oral 00 AM Tablet EDT Ondansetron Hcl Ondansetron Ondans 12/28/ TABLET 4 mg ORAL active [facility] 4 MG etron 2019 [place] Disintegrat Hcl 11:03: Hospit al ing Oral 00 AM Tablet EDT Ondansetron Hcl 0.4 ML Enoxap 12/28/ INJECTIO 40 mg SUBCUT complet [facility] Enoxaparin frankie 2019 N ANEOUS [facility] [place] sodium 100 Sodium 11:03: [facility] [place] MG/ML 00 AM Prefilled EDT Syringe [Lovenox] Enoxaparin Sodium Ondansetron Ondans 12/28/ TABLET 4 mg ORAL complet [facility] 4 MG etron 2019 ed [place] Disintegrat Hcl 11:03: Hospit al ing Oral [...] AEROSOL, 2 RESPIR active Wh ite SPRAY [facility] ([facility]) Nicotine Nicoti SPRAY complet [facility] Albuterol Albute 3 mL RESPIR active Whit e 0.83 MG/ML rol [facility] Inhalant Sulfat ([facility]HAL [facility] Albuterol Sulfate Nystatin Nystat 1.0 active Nystatin eCW 3 894012 in {appl 449528 ([facility] UNT/ML 453993 icati UNIT/GM [facility] Topical UNIT/G on} Health Cream [facility]) Nystatin 301108 UNIT/GM 200 ACTUAT Ventol 2.0 active Ventolin H FA eCW3 Albuterol in HFA {puff 108 (90 (Hud son 0.09 108 s_as_ Base) [facility] MG/ACTUAT (90 neede MCG/ACT Health Metered Base) d} Care) Dose MCG/AC Inhaler T [Ventolin] Ventolin HFA 108 (90 Base) MCG/ACT Ibuprofen Ibupro TABLET 800 ORAL complet Whi te 400 MG Oral fen mg [facility] Albuterol AEROSOL, 2 RESPIR complet W allan SPRAY [facility] ([facility]) 200 ACTUAT Ventol 2.0 active Ventolin H FA eCW3 Albuterol in HFA {puff 108 (90 (Hud son 0.09 108 s_as_ Base) [facility] MG/ACTUAT (90 neede MCG/ACT Health Metered Base) d} Care) Dose MCG/AC Inhaler T [Ventolin] Ventolin HFA 108 (90 Base) MCG/ACT Nicotine Nicoti SPRAY complet [facility] 200 ACTUAT Ventol 2.0 active Ventolin H FA eCW3 Albuterol in HFA {puff 108 (90 (Hud son 0.09 108 s_as_ Base) [facility] MG/ACTUAT (90 neede MCG/ACT Health Metered Base) d} Care) Dose MCG/AC Inhaler T [Ventolin] Ventolin HFA 108 (90 Base) MCG/ACT Albuterol AEROSOL, 2 RESPIR active Wh ite SPRAY [facility] ([facility]) Nystatin Nystat 1.0 active Nystatin eCW 3 908672 in {appl 039326 ([facility] UNT/ML 778386 icati UNIT/GM [facility] Topical UNIT/G on} Health Cream [facility]) Nystatin 692518 UNIT/GM Ibuprofen Ibupro TABLET 800 ORAL complet Whi te 400 MG Oral fen mg [facility] Nystatin Nystat 1.0 active Nystatin eCW 3 676805 in {appl 235678 ([facility] UNT/ML 763442 icati UNIT/GM [facility] Topical UNIT/G on} Health [facility]) Nystatin 719534 UNIT/GM Nystatin Nystat 1.0 active Nystatin eCW 3 837120 in {appl 562722 ([facility] UNT/ML 323760 icati UNIT/GM [facility] Topical UNIT/G on} [facility]) Nystatin 530558 UNIT/GM Ibuprofen Ibupro TABLET 800 ORAL complet Whi te 400 MG Oral fen mg [facility] 200 ACTUAT Ventol 2.0 active Ventolin H FA eCW3 Albuterol in HFA {puff 108 (90 (Hud son 0.09 108 s_as_ Base) [facility] MG/ACTUAT (90 neede MCG/ACT Health Metered Base) d} Care) Dose MCG/AC Inhaler T [Ventolin] Ventolin HFA 108 (90 Base) MCG/ACT Nicotine Nicoti SPRAY complet [facility] Nystatin Nystat 1.0 active Nystatin eCW 3 807792 in {appl 760129 ([place] UNT/ML 945926 icati UNIT/GM [facility] Topical UNIT/G on} [facility]) Nystatin 843584 UNIT/GM 200 ACTUAT Ventol 2.0 active Ventolin [...] to Etienne Inf ormation type etienne BRIDGETTE [id number] SP [id number] 700 HEALTH NON CAP BETTER [id number] PT [id number] 700 HEALTH/LAUREL JOHNSONL [id number] PT [id number] 700 ESSENTIAL PLAN 1 W [id number] 01 [id number] 700 Problems, Conditions, and Diagnoses Code Display Name Description Problem Type Effective Data Sour ce(s) Dates E66.01 Morbid obesity Morbid obesity Problem 08/12/2018 eCW3 ( [facility] 12:00:00 AM [facility] EDT Care) J45.20 Mild intermittent Mild intermittent Problem 03/09/2018 eCW3 ([place] asthma in adult asthma in [facility] complication complication Z72.0 Tobacco abuse Tobacco abuse Problem 03/09/2018 eCW3 ([facility] 12:00:00 AM [facility] EST Care) J45.20 Mild intermittent Mild intermittent Problem 03/09/2018 eCW3 ([place] asthma in adult asthma in adult 12:00:[facility] Care) complication complication R73.09 Prediabetes Prediabetes Problem 06/14/2015 eCW3 ([facility] 12:00:00 AM [facility] EST Care) F17.200 Smoker Smoker Problem 02/05/2015 eCW3 ([facility] 12:00:00 AM [facility] EST Care) E78.0 Elevated LDL Elevated LDL Problem 02/05/2015 eCW3 ([facility] cholesterol level cholesterol level 12:00:00 AM [facility] EST Care) R80.9 Proteinuria Proteinuria Problem 02/05/2015 eCW3 ([facility] 12:00:00 AM [facility] EST Care) E66.01 Morbid obesity Morbid obesity Problem 02/05/2015 eCW3 ( [place] 12:00:00 AM [facility] EST Care) R80.9 Proteinuria Proteinuria Problem 02/05/2015 eCW3 ([facility] 12:00:00 AM [facility] EST Care) J45.909 Asthma Asthma Problem 02/01/2015 eCW3 ([facility] 12:00:00 AM [facility] EDT Care) 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 Diagnosis 05/19/2019 [facility] [place] (current) drug 06:08:00 AM Hospital therapy EST Z98.84 Bariatric surgery Z98.84 Diagnosis 05/19/2019 [place] status 06:08:00 AM Hospital EST J45.909 Unspecified asthma, J45.909 Diagnosis 05/19/2019 [facility] uncomplicated 06:08:00 AM Hospital EST Z68.33 Body mass index Z68.33 Diagnosis 05/19/2019 [place] (BMI) 33.0-33.9, 06:08:00 AM Hospita l adult EST E66.01 Morbid (severe) E66.01 Diagnosis 05/19/2019 [place] [facility] obesity due to 06:08:00 AM Hospital excess calories EST K80.10 Calculus of K80.10 Diagnosis 05/19/2019 [facility] gallbladder with 06:08:00 AM Hospita l chronic EST cholecystitis without obstruction D72.829 Elevated white D72.829 Diagnosis 05/13/2019 [place] blood cell count, 11:21:00 AM Hospit al unspecified EST R79.89 Other specified R79.89 Diagnosis 05/13/2019 [place] abnormal findings 11:21:00 AM Hospit al of blood chemistry EST J44.9 Chronic obstructive J44.9 Diagnosis 05/13/2019 [facility] pulmonary disease, 11:21:00 AM [facility] [place] unspecified EST K80.50 Calculus of bile K80.50 Diagnosis 05/13/2019 [place] duct without 11:21:00 AM Hospital cholangitis or EST cholecystitis without obstruction Z01.812 Encounter for Z01.812 Diagnosis 05/13/2019 [place] preprocedural 11:21:00 AM Hospital laboratory EST examination Z01.818 Encounter for other Z01.818 Diagnosis 05/13/2019 [facility] preprocedural 11:21:00 AM Hospital examination EST Z87.891 Personal history of Z87.891 Diagnosis 04/26/2019 [facility] nicotine dependence 09:32:00 PM Hosp ital EST R10.84 Generalized R10.84 Diagnosis 04/26/2019 [facility] abdominal pain 09:32:00 PM Hospital EST I25.9 Chronic ischemic I25.9 Diagnosis 12/13/2018 [place] heart disease, 02:12:00 PM Hospital unspecified EDT Z68.42 Body mass index Z68.42 Diagnosis 12/10/2018 [place] (BMI) 45.0-49.9, 11:03:00 AM Hospita l adult EDT R73.03 Prediabetes R73.03 Diagnosis 12/10/2018 [facility] 11:03:00 AM Hospital EDT Z01.810 Encounter for Z01.810 Diagnosis 12/10/2018 [place] preprocedural 11:03:00 AM Hospital cardiovascular EDT examination Surgeries/Procedures Procedure Description Date Indications Data Source(s) Oxygen therapy (procedure) 05/19/2019 [facility] [place] 12:00:00 AM Hospital EST Office/outpatient visit est 05/13/2019 [facility] 12:00:00 AM Hospital EST Ultrasonography of abdomen 04/27/2019 [facility] [place] (procedure) 12:00:00 AM Hospital EST Us exam abdom complete 04/27/2019 [facility] 12:00:00 AM Hospital EST Computed tomography of abdomen 04/26/2019 [facility] and pelvis with intravenous 12:00:00 AM Hospital and oral contrast EST injection Diphenhydramine HCL, 04/26/2019 [facility] up to 50 MG 12:00:00 AM Hospital EST INJECTION, ONDANSETRON 04/26/2019 [facility] HYDROCHLORIDE, PER 1 MG 12:00:00 AM Hosp ital EST LOCM 200-299MG/ML IODINE,1ML 04/26/2019 [facility] 12:00:00 AM Hospital EST LOW OSMOLAR 300-399 mg/mi IOP 04/26/2019 [facility] 12:00:00 AM Hospital EST Assay of lipase 04/26/2019 [facility] 12:00:00 AM Hospital EST Comprehen metabolic panel 04/26/2019 Wh ite [place] 12:00:00 AM Hospital EST Urine test 04/26/2019 [place] 12:00:00 AM Hospital EST Influenza dna amp probe 04/26/2019 Whit e [place] 12:00:00 AM Hospital EST Influenza dna amp probe 04/26/2019 Whit [facility] [place] 12:00:00 AM Hospital EST Complete cbc w/auto diff wbc 04/26/2019 [facility] 12:00:00 AM Hospital EST Urinalysis auto w/scope 04/26/2019 Whit e [place] 12:00:[address] abd & pelv w/contrast 04/26/2019 Whi te [place] 12:00:00 AM Hospital EST Tx/pro/dx inj new drug addon 04/26/2019 [facility] 12:00:00 AM Hospital EST Ther/proph/diag inj iv push 04/26/2019 [facility] 12:00:00 AM Hospital EST Emergency dept visit 04/26/2019 [place] 12:00:00 AM Hospital EST Computed tomography of abdomen 04/26/2019 [facility] and pelvis with intravenous 12:00:00 AM Hospital and oral contrast EST Physical therapy procedure 12/28/2018 [facility] all[facility] [place] (regime/therapy) 12:00:00 AM Hospital EDT Incentive spirometry 12/27/2018 Yogi min (regime/therapy) 12:00:00 AM Hospital EDT Oxygen therapy (procedure) 12/27/2018 [facility] [place] 12:00:00 AM Hospital EDT Echocardiography (procedure) 12/13/2018 [facility] 12:00:00 AM Hospital EDT Electrocardiographic procedure 12/10/2018 [facility] (procedure) 12:00:00 AM Hospital EDT Hospital outpatient clinic 12/10/2018 [facility] allangianni Cloud visit for assessment & 12:00:00 AM [facility] [place] managema EDT Electrocardiogram tracing 12/10/2018 ite [place] 12:00:00 AM Hospital EDT Glycosylated hemoglobin test 12/10/2018 [facility] 12:00:00 AM Hospital EDT Comprehen metabolic panel 12/10/2018 ite [place] 12:00:00 AM Hospital EDT Janet test indirect qual 12/10/2018 [facility] [place] 12:00:00 AM Hospital EDT Prothrombin time 12/10/2018 [place] 12:00:00 AM Hospital EDT Complete cbc w/auto diff wbc 12/10/2018 [facility] 12:00:00 AM Hospital EDT Thromboplastin time partial 12/10/2018 [facility] 12:00:00 AM Hospital EDT Routine venipuncture 12/10/2018 [facility] 12:00:00 AM Hospital EDT Results ID Date Data Source [id number] 05/19/2019 06:45:00 AM [facility] Name Value Range Interpretation Description Data Sup porting Code Source(s) Document(s ) Choriogonadotropin NEGATIVE [place] ( test) [place] [Presence] in Urine Hospital ID Date Data Source [id number] 05/13/2019 11:56:00 AM [facility] ADA RECOMMENDATIONS: NON-DIABETES: 4.0-6.0% CONTROLLED DIABETES: 6.0-8.0% UNCONTROLLED DIABETE S: UP TO 20%RECOMMENDED ADA RESULT FOR THERAPY: HEMOGLOBIN A1C RESULT LESS DAVID N 7%.NOTE: METHOD CHANGE EFFECTIVE 11/03/14. Name Value Range Interpretation Description Data Sup porting Code Source(s) Document(s ) Hemoglobin 5.0 % [facility] A1c/Hemoglobin. Hospital total in Blood ID Date Data Source [id number] 05/13/2019 11:56:00 AM [facility] Name Value Range Interpretation Description Data Sup porting Code Source(s) Document(s ) Aspartate 16 U/L [place] aminotransferase [place] [Enzymatic Hospital activity/volume] in Serum or Plasma ID Date Data Source [id number] 05/13/2019 11:56:00 AM [facility] Name Value Range Interpretation Description Data Sup porting Code Source(s) Document(s ) Alanine 18 U/L [place] aminotransferase [place] [Enzymatic Hospital activity/volume] in Serum or Plasma ID Date Data Source [id number] 05/13/2019 11:56:00 AM [facility] Name Value Range Interpretation Description Data Sup porting Code Source(s) Document(s ) Alkaline 84 U/L [facility] phosphatase Hospital [Enzymatic activity/volume ] in Serum or Plasma ID Date Data Source [id number] 05/13/2019 11:56:00 AM [facility] Name Value Range Interpretation Description Data Sup porting Code Source(s) Document(s ) Bilirubin.t 1.1 mg/dL [facility] [Mass/volum e] in Serum or Plasma ID Date Data Source [id number] 05/13/2019 11:56:00 AM [facility] Name Value Range Interpretation Code Description Data Mary Kate rce(s) Supporting Document(s ) Albumin/Glob 2.3 [facility] ulin [Mass Hospital Ratio] in Serum or Plasma ID Date Data Source [id number] 05/13/2019 11:56:00 AM [facility] Name Value Range Interpretation Description Data Sup porting Code Source(s) Document(s ) Albumin 4.6 g/dL [facility] [Mass/volume Hospital ] in Serum or Plasma ID Date Data Source [id number] 05/13/2019 11:56:00 AM [facility] Name Value Range Interpretation Description Data Sup porting Code Source(s) Document(s ) Protein 6.6 g/dL [facility] [Mass/volume Hospital ] in Serum or Plasma ID Date Data Source [id number] 05/13/2019 11:56:00 AM [facility] Name Value Range Interpretation Description Data Sup porting Code Source(s) Document(s ) Calcium 9.0 mg/dL [facility] [Mass/volume Hospital ] in Serum or Plasma ID Date Data Source [id number] 05/13/2019 11:56:00 AM [facility] UNITS ARE IN ml/min/1.73m2.IF PATIENT IS -CENTRAL AFRICAN, MULTIPLY REPORTED RESULT BY 1.21. Name Value Range Interpretation Description Data Sup porting Code Source(s) Document(s ) Glomerular > 60 [facility] filtration mL/min Hospital rate/1.73 sq M.predicted [Volume Rate/Area] in Serum or Plasma by Creatinine-bas ed formula (MDRD) ID Date Data Source [id number] 05/13/2019 11:56:00 AM [facility] Name Value Range Interpretation Code Description Data Mary Kate rce(s) Supporting Document(s ) Urea 16.3 [facility] nitrogen/Cre Hospital atinine [Mass Ratio] in Serum or Plasma ID Date Data Source [id number] 05/13/2019 11:56:00 AM [facility] Name Value Range Interpretation Description Data Sup porting Code Source(s) Document(s ) Creatinine 0.8 mg/dL [facility] [Mass/volume] Hospital in Serum or Plasma ID Date Data Source [id number] 05/13/2019 11:56:00 AM [facility] Hospital Name Value Range Interpretation Description Data Sup porting Code Source(s) Document(s ) Urea 13 mg/dL [facility] nitrogen Hospital [Mass/volume ] in Serum or Plasma ID Date Data Source [id number] 05/13/2019 11:56:00 AM [facility] Name Value Range Interpretation Code Description Data Mary Kate rce(s) Supporting Document(s ) Anion gap in 12 [facility] Serum or [facility] Plasma ID Date Data Source [id number] 05/13/2019 11:56:00 AM [facility] Value Range Interpretation Description Data Sup porting Code Source(s) Document(s ) Carbon 26 mmol/L [facility] dioxide, Hospital total [Moles/volu me] in Serum or Plasma ID Date Data Source [id number] 05/13/2019 11:56:00 AM [facility] Name Value Range Interpretation Description Data Sup porting Code Source(s) Document(s ) Chloride 105 [facility] [Moles/volum mmol/L Hospital e] in Serum or Plasma ID Date Data Source [id number] 05/13/2019 11:56:00 AM [facility] Hospital Name Value Range Interpretation Description Data Sup porting Code Source(s) Document(s ) Potassium 4.3 [facility] [Moles/volume mmol/L Hospital ] in Serum or Plasma ID Date Data Source [id number] 05/13/2019 11:56:00 AM EST [facility] Hospital Name Value Range Interpretation Description Data Sup porting Code Source(s) Document(s ) Sodium 139 mmol/L [facility] [Moles/volu Hospital me] in Serum or Plasma ID Date Data Source [id number] 05/13/2019 11:56:[address] [facility] Name Value Range Interpretation Description Data Sup porting Code Source(s) Document(s ) Glucose 86 mg/dL [facility] [[facility] ] in Serum or Plasma ID Date Data Source [id number] 05/13/2019 11:56:00 AM [facility] Name Value Range Interpretation Code Description Data Supporting Source(s) Document(s ) NUCLEATED RBCS 0.0 % [facility] (AUTO Hospital DIFF%)DIS ID Date Data Source [id number] 05/13/2019 11:56:00 AM [facility] Value Range Interpretation Description Data Sup porting Code Source(s) Document(s ) Differential AUTOMATED [facility] cell count Hospital method - Blood ID Date Data Source [id number] 05/13/2019 11:56:00 AM [facility] Name Value Range Interpretation Description Data Sup porting Code Source(s) Document(s ) Immature 0.02 [facility] granulocytes 10*3/uL Hospital [#/volume] in Blood by Automated count ID Date Data Source [id number] 05/13/2019 11:56:[address] [facility] Name Value Range Interpretation Description Data Sup porting Code Source(s) Document(s ) Basophils 0.06 [facility] [#/volume] in 10*3/uL Hospital Blood by Automated count ID Date Data Source [id number] 05/13/2019 11:56:[address] [facility] Name Value Range Interpretation Description Data Sup porting Code Source(s) Document(s ) Eosinophils 0.23 [facility] [#/volume] in 10*3/uL Hospital Blood by Automated count ID Date Data Source [id number] 05/13/2019 11:56:[address] [facility] Name Value Range Interpretation Description Data Sup porting Code Source(s) Document(s ) Monocytes 0.40 [facility] [#/volume] in 10*3/uL Hospital Blood by Automated count ID Date Data Source [id number] 05/13/2019 11:56:00 AM [facility] Value Range Interpretation Description Data Sup porting Code Source(s) Document(s ) Lymphocytes 2.43 [facility] [#/volume] in 10*3/uL Hospital Blood by Automated count ID Date Data Source [id number] 05/13/2019 11:56:00 AM [facility] Value Range Interpretation Description Data Sup porting Code Source(s) Document(s ) Neutrophils 4.51 [facility] [#/volume] in 10*3/uL Hospital Blood by Automated count ID Date Data Source [id number] 05/13/2019 11:56:00 AM [facility] Value Range Interpretation Description Data Sup porting Code Source(s) Document(s ) Nucleated 0.0 % [facility] erythrocytes/10 Hospital 0 leukocytes [Ratio] in Blood by Automated count ID Date Data Source [id number] 05/13/2019 11:56:00 AM [facility] Value Range Interpretation Description Data Sup porting Code Source(s) Document(s ) Immature 0.3 % [facility] granulocytes/10 Hospital 0 leukocytes in Blood by Automated count ID Date Data Source [id number] 05/13/2019 11:56:00 AM [facility] Value Range Interpretation Description Data Sup porting Code Source(s) Document(s ) Basophils/100 0.8 % [facility] leukocytes in Hospital Blood by Automated count ID Date Data Source [id number] 05/13/2019 11:56:00 AM EST [facility] Name Value Range Interpretation Description Data Sup porting Code Source(s) Document(s ) Eosinophils/100 3.0 % [facility] leukocytes in Hospital Blood by Automated count ID Date Data Source [id number] 05/13/2019 11:56:00 AM EST [facility] Name Value Range Interpretation Description Data Sup porting Code Source(s) Document(s ) Monocytes/100 5.2 % [facility] leukocytes in Hospital Blood by Automated count ID Date Data Source [id number] 05/13/2019 11:56:[address] [facility] Name Value Range Interpretation Description Data Sup porting Code Source(s) Document(s ) Lymphocytes/10 31.8 % [facility] 0 leukocytes Hospital in Blood by Automated count ID Date Data Source [id number] 05/13/2019 11:56:[address] [facility] Name Value Range Interpretation Description Data Sup porting Code Source(s) Document(s ) Neutrophils/10 58.9 % [facility] 0 leukocytes Hospital in Blood by Automated count ID Date Data Source [id number] 05/13/2019 11:56:[address] [facility] Name Value Range Interpretation Description Data Sup porting Code Source(s) Document(s ) Platelet mean 10.2 fL [facility] volume Hospital [Entitic volume] in Blood by Automated count ID Date Data Source [id number] 05/13/2019 11:56:00 AM EST [facility] Name Value Range Interpretation Description Data Sup porting Code Source(s) Document(s ) Platelets 288 [facility] [#/volume] in 10*3/uL Hospital Blood by Automated count ID Date Data Source [id number] 05/13/2019 11:56:00 AM EST [facility] Value Range Interpretation Description Data Sup porting Code Source(s) Document(s ) Erythrocyte 12.5 % [facility] distribution Hospital width [Ratio] by Automated count ID Date Data Source [id number] 05/13/2019 11:56:00 AM [facility] Value Range Interpretation Description Data Sup porting Code Source(s) Document(s ) Erythrocyte mean 34.3 [facility] corpuscular g/dL Hospital hemoglobin concentration [Mass/volume] by Automated count ID Date Data Source [id number] 05/13/2019 11:56:00 AM [facility] Value Range Interpretation Description Data Sup porting Code Source(s) Document(s ) Erythrocyte 30.4 pg [facility] corpuscular hemoglobin [Entitic mass] by Automated count ID Date Data Source [id number] 05/13/2019 11:56:00 AM [facility] Value Range Interpretation Description Data Sup porting Code Source(s) Document(s ) Erythrocyte 88.7 fL [facility] corpuscular volume [Entitic volume] by Automated count ID Date Data Source [id number] 05/13/2019 11:56:00 AM [facility] Value Range Interpretation Description Data Sup porting Code Source(s) Document(s ) Hematocrit 40.8 % [facility] [Volume Hospital Fraction] of Blood by Automated count ID Date Data Source [id number] 05/13/2019 11:56:00 AM [facility] Value Range Interpretation Description Data Sup porting Code Source(s) Document(s ) Hemoglobin 14.0 g/dL [facility] [Mass/volume] Hospital in Blood ID Date Data Source [id number] 05/13/2019 11:56:00 AM [facility] Value Range Interpretation Description Data Sup porting Code Source(s) Document(s ) Erythrocytes 4.60 [facility] [#/volume] in 10*6/uL Hospital Blood by Automated count ID Date Data Source [id number] 05/13/2019 11:56:00 AM EST [facility] Value Range Interpretation Description Data Sup porting Code Source(s) Document(s ) Leukocytes 7.7 [facility] [#/volume] in 10*3/uL Hospital Blood by Automated count ID Date Data Source [id number] 04/27/2019 03:00:00 PM EST [facility] Name Value Range Interpretation Description Data Sup porting Code Source(s) Document(s ) Manual MANUAL [facility] differential Hospital performed [Presence] in Blood ID Date Data Source [id number] 04/27/2019 03:00:00 PM [facility] Value Range Interpretation Code Description Data Mary Kate rce(s) Supporting Document(s ) Cells 100 [facility] Counted Hospital Total [#] in Blood ID Date Data Source [id number] 04/27/2019 03:00:00 PM [facility] Value Range Interpretation Code Description Data Supporting Source(s) Document(s ) PLATELET NORMAL [facility] COMMENT Hospital ID Date Data Source [id number] 04/27/2019 03:00:00 PM [facility] Value Range Interpretation Code Description Data Mary Kate rce(s) Supporting Document(s ) RBC COMMENT NORMAL [facility] Hospital ID Date Data Source [id number] 04/27/2019 03:00:00 PM [facility] Value Range Interpretation Description Data Sup porting Code Source(s) Document(s ) Eosinophils 0.30 [facility] [#/volume] in 10*3/uL Hospital Blood by Manual count ID Date Data Source [id number] 04/27/2019 03:00:00 PM EST [facility] Value Range Interpretation Description Data Sup porting Code Source(s) Document(s ) Monocytes 0.30 [facility] [#/volume] in 10*3/uL Hospital Blood by Manual count ID Date Data Source [id number] 04/27/2019 03:00:[address] [facility] Name Value Range Interpretation Description Data Sup porting Code Source(s) Document(s ) Lymphocytes 1.31 [facility] [#/volume] in 10*3/uL Hospital Blood by Manual count ID Date Data Source [id number] 04/27/2019 03:00:[address] [facility] Name Value Range Interpretation Description Data Sup porting Code Source(s) Document(s ) Neutrophils 8.18 [facility] [#/volume] in 10*3/uL Hospital Blood by Manual count ID Date Data Source [id number] 04/27/2019 03:00:[address] [facility] Name Value Range Interpretation Description Data Sup porting Code Source(s) Document(s ) Eosinophils/100 3 % [facility] leukocytes in Hospital Blood by Manual count ID Date Data Source [id number] 04/27/2019 03:00:00 PM EST [facility] Value Range Interpretation Description Data Sup porting Code Source(s) Document(s ) Monocytes/100 3 % [facility] leukocytes in Hospital Blood by Manual count ID Date Data Source [id number] 04/27/2019 03:00:00 PM [facility] Name Value Range Interpretation Description Data Sup porting Code Source(s) Document(s ) Lymphocytes/100 13 % [facility] leukocytes in Hospital Blood by Manual count ID Date Data Source [id number] 04/27/2019 03:00:[address] [facility] Name Value Range Interpretation Description Data Sup porting Code Source(s) Document(s ) Band form 1 % [facility] neutrophils/100 Hospital leukocytes in Blood ID Date Data Source [id number] 04/27/2019 03:00:00 PM [facility] Name Value Range Interpretation Description Data Sup porting Code Source(s) Document(s ) Neutrophils/100 80 % [facility] leukocytes in Hospital Blood by Manual count ID Date Data Source [id number] 04/27/2019 12:26:00 AM [facility] Value Range Interpretation Description Data Sup porting Code Source(s) Document(s ) Choriogonadotropin NEGATIVE [facility] ( test) [place] [Presence] in Urine Hospital ID Date Data Source [id number] 04/26/2019 10:21:00 PM [facility] Value Range Interpretation Description Data Sup porting Code Source(s) Document(s ) Epithelial OCCASIONAL [facility] cells.[facility] s [#/area] in Urine sediment by Microscopy high power field ID Date Data Source [id number] 04/26/2019 10:21:00 PM [facility] Value Range Interpretation Description Data Sup porting Code Source(s) Document(s ) Bacteria 1+ [facility] [#/area] in Hospital Urine sediment by Microscopy high power field ID Date Data Source [id number] 04/26/2019 10:21:00 PM [facility] Value Range Interpretation Description Data Sup porting Code Source(s) Document(s ) Erythrocytes 0-3 [facility] [#/area] in /[HPF] Hospital Urine sediment by Microscopy high power field ID Date Data Source [id number] 04/26/2019 10:21:00 PM [facility] Name Value Range Interpretation Description Data Sup porting Code Source(s) Document(s ) Leukocytes 0-3 [facility] [#/area] in /[HPF] Hospital Urine sediment by Microscopy high power field ID Date Data Source [id number] 04/26/2019 10:21:00 PM EST [facility] Name Value Range Interpretation Description Data Sup porting Code Source(s) Document(s ) Leukocyte NEGATIVE [facility] esterase Hospital [Presence] in Urine by Test strip ID Date Data Source [id number] 04/26/2019 10:21:00 PM EST [facility] Name Value Range Interpretation Description Data Sup porting Code Source(s) Document(s ) URINE NEGATIVE [facility] NITRITES Hospital ID Date Data Source [id number] 04/26/2019 10:21:00 PM [facility] Name Value Range Interpretation Description Data Sup porting Code Source(s) Document(s ) Erythrocytes NEGATIVE [facility] [#/volume] in Hospital Urine by Test strip ID Date Data Source [id number] 04/26/2019 10:21:00 PM [facility] Name Value Range Interpretation Code Description Data Mary Kate rce(s) Supporting Document(s ) Bilirubin. NEGATIVE [facility] total Hospital [Presence] in Urine by Test strip ID Date Data Source [id number] 04/26/2019 10:21:00 PM [facility] Name Value Range Interpretation Description Data Sup porting Code Source(s) Document(s ) Urobilinogen 1.0 [facility] [Units/volume] mg/dL Hospital in Urine by Test strip ID Date Data Source [id number] 04/26/2019 10:21:00 PM EST [facility] Name Value Range Interpretation Description Data Sup porting Code Source(s) Document(s ) Ketones NEGATIVE [facility] [[facility] ] in Urine by Test strip ID Date Data Source [id number] 04/26/2019 10:21:00 PM EST [facility] Name Value Range Interpretation Description Data Sup porting Code Source(s) Document(s ) Glucose NEGATIVE [facility] [[facility] ] in Urine by Test strip ID Date Data Source [id number] 04/26/2019 10:21:[address] [facility] Name Value Range Interpretation Description Data Sup porting Code Source(s) Document(s ) Protein NEGATIVE [facility] [Presence] Hospital in Urine by Test strip ID Date Data Source [id number] 04/26/2019 10:21:00 PM [facility] Name Value Range Interpretation Code Description Data Mary Kate rce(s) Supporting Document(s ) pH of Urine 7.5 [facility] by Test Hospital strip ID Date Data Source [id number] 04/26/2019 10:21:00 PM [facility] Value Range Interpretation Code Description Data Supporting Source(s) Document(s ) Specific 1.013 [facility] gravity of Hospital Urine by Test strip ID Date Data Source [id number] 04/26/2019 10:21:00 PM [facility] Name Value Range Interpretation Description Data Sup porting Code Source(s) Document(s ) Clarity in Urine CLOUDY [facility] by Refractometry Hospital automated ID Date Data Source [id number] 04/26/2019 10:21:00 PM [facility] Value Range Interpretation Code Description Data Mary Kate rce(s) Supporting Document(s ) Color of YELLOW [facility] Urine Hospital ID Date Data Source [id number] 04/26/2019 10:21:[address] [facility] Name Value Range Interpretation Description Data Sup porting Code Source(s) Document(s ) Epithelial OCCASIONAL [facility] cells.[facility] s [#/area] in Urine sediment by Microscopy high power field ID Date Data Source [id number] 04/26/2019 10:21:00 PM EST [facility] Name Value Range Interpretation Description Data Sup porting Code Source(s) Document(s ) Bacteria 1+ [facility] [#/area] in Hospital Urine sediment by Microscopy high power field ID Date Data Source [id number] 04/26/2019 10:21:[address] [facility] Name Value Range Interpretation Description Data Sup porting Code Source(s) Document(s ) Erythrocytes 0-3 [facility] [#/area] in /[HPF] Hospital Urine sediment by Microscopy high power field ID Date Data Source [id number] 04/26/2019 10:21:[address] [facility] Name Value Range Interpretation Description Data Sup porting Code Source(s) Document(s ) Leukocytes 0-3 [facility] [#/area] in /[HPF] Hospital Urine sediment by Microscopy high power field ID Date Data Source [id number] 04/26/2019 10:21:[address] [facility] Name Value Range Interpretation Description Data Sup porting Code Source(s) Document(s ) Leukocyte NEGATIVE [facility] esterase Hospital [Presence] in Urine by Test strip ID Date Data Source [id number] 04/26/2019 10:21:[address] [facility] Name Value Range Interpretation Description Data Sup porting Code Source(s) Document(s ) URINE NEGATIVE [facility] NITRITES Hospital ID Date Data Source [id number] 04/26/2019 10:21:[address] [facility] Name Value Range Interpretation Description Data Sup porting Code Source(s) Document(s ) Erythrocytes NEGATIVE [facility] [#/volume] in Hospital Urine by Test strip ID Date Data Source [id number] 04/26/2019 10:21:[address] [facility] Name Value Range Interpretation Code Description Data Mary Kate rce(s) Supporting Document(s ) Bilirubin. NEGATIVE [facility] total Hospital [Presence] in Urine by Test strip ID Date Data Source [id number] 04/26/2019 10:21:00 PM [facility] Name Value Range Interpretation Description Data Sup porting Code Source(s) Document(s ) Urobilinogen 1.0 [facility] [Units/volume] mg/dL Hospital in Urine by Test strip ID Date Data Source [id number] 04/26/2019 10:21:00 PM [facility] Name Value Range Interpretation Description Data Sup porting Code Source(s) Document(s ) Ketones NEGATIVE [facility] [Mass[facility]volume Hospital ] in Urine by Test strip ID Date Data Source [id number] 04/26/2019 10:21:00 PM [facility] Value Range Interpretation Description Data Sup porting Code Source(s) Document(s ) Glucose NEGATIVE [facility] [Mass[facility]volume Hospital ] in Urine by Test strip ID Date Data Source [id number] 04/26/2019 10:21:00 PM [facility] Hospital Name Value Range Interpretation Description Data Sup porting Code Source(s) Document(s ) Protein NEGATIVE [facility] [Presence] Hospital in Urine by Test strip ID Date Data Source [id number] 04/26/2019 10:21:00 PM [facility] Name Value Range Interpretation Code Description Data Mary Kate rce(s) Supporting Document(s ) pH of Urine 7.5 [facility] by Test Hospital strip ID Date Data Source [id number] 04/26/2019 10:21:00 PM [facility] Value Range Interpretation Code Description Data Supporting Source(s) Document(s ) Specific 1.013 [facility] gravity of Hospital Urine by Test strip ID Date Data Source [id number] 04/26/2019 10:21:00 PM EST [facility] Name Value Range Interpretation Description Data Sup porting Code Source(s) Document(s ) Clarity in Urine CLOUDY [facility] by Refractometry Hospital automated ID Date Data Source [id number] 04/26/2019 10:21:00 PM [facility] Hospital Name Value Range Interpretation Code Description Data Mary Kate rce(s) Supporting Document(s ) Color of YELLOW [facility] Urine Hospital ID Date Data Source [id number] 04/26/2019 09:05:00 PM EST [facility] Name Value Range Interpretation Code Description Data Mary Kate rce(s) Supporting Document(s ) Lipase 30 U/L [facility] [Enzymatic Hospital activity/vo lume] in Serum or Plasma ID Date Data Source [id number] 04/26/2019 09:05:00 PM [facility] Hospital Name Value Range Interpretation Code Description Data Mary Kate rce(s) Supporting Document(s ) Lipase 30 U/L [facility] [Enzymatic Hospital activity/vo lume] in Serum or Plasma ID Date Data Source [id number] 04/26/2019 09:05:00 PM EST [facility] Name Value Range Interpretation Description Data Sup porting Code Source(s) Document(s ) Aspartate 488 U/L [facility] aminotransferase [facility] [Enzymatic Hospital activity/volume] in Serum or Plasma ID Date Data Source [id number] 04/26/2019 09:05:00 PM EST [facility] Name Value Range Interpretation Description Data Sup porting Code Source(s) Document(s ) Alanine 203 U/L [facility] aminotransferase [facility] [Enzymatic Hospital activity/volume] in Serum or Plasma ID Date Data Source [id number] 04/26/2019 09:05:00 PM EST [facility] Name Value Range Interpretation Description Data Sup porting Code Source(s) Document(s ) Alkaline 151 U/L [facility] phosphatase Hospital [Enzymatic activity/volume ] in Serum or Plasma ID Date Data Source [id number] 04/26/2019 09:05:[address] [facility] Name Value Range Interpretation Description Data Sup porting Code Source(s) Document(s ) Bilirubin.t 1.1 mg/dL [facility] [Mass/volum e] in Serum or Plasma ID Date Data Source [id number] 04/26/2019 09:05:[address] [facility] Name Value Range Interpretation Code Description Data Mary Kate rce(s) Supporting Document(s ) Albumin/Glob 2.1 [facility] ulin [Mass Hospital Ratio] in Serum or Plasma ID Date Data Source [id number] 04/26/2019 09:05:00 PM [facility] Name Value Range Interpretation Description Data Sup porting Code Source(s) Document(s ) Albumin 4.9 g/dL [facility] [Mass/volume Hospital ] in Serum or Plasma ID Date Data Source [id number] 04/26/2019 09:05:00 PM [facility] Name Value Range Interpretation Description Data Sup porting Code Source(s) Document(s ) Protein 7.2 g/dL [facility] [Mass/volume Hospital ] in Serum or Plasma ID Date Data Source [id number] 04/26/2019 09:05:[address] [facility] Name Value Range Interpretation Description Data Sup porting Code Source(s) Document(s ) Calcium 9.9 mg/dL [facility] [Mass/volume Hospital ] in Serum or Plasma ID Date Data Source [id number] 04/26/2019 09:05:00 PM [facility] Name Value Range Interpretation Code Description Data Mary Kate rce(s) Supporting Document(s ) Urea 11.3 [facility] nitrogen/Cre Hospital atinine [Mass Ratio] in Serum or Plasma ID Date Data Source [id number] 04/26/2019 09:05:[address] [facility] Name Value Range Interpretation Description Data Sup porting Code Source(s) Document(s ) Creatinine 0.8 mg/dL [facility] [Mass/volume] [facility] in Serum or Plasma ID Date Data Source [id number] 04/26/2019 09:05:[address] [facility] Name Value Range Interpretation Description Data Sup porting Code Source(s) Document(s ) Urea nitrogen 9 mg/dL [facility] [Mass/volume] [facility] in Serum or Plasma ID Date Data Source [id number] 04/26/2019 09:05:00 PM [facility] Value Range Interpretation Code Description Data Mary Kate rce(s) Supporting Document(s ) Anion gap in 12 [facility] Serum or [facility] Plasma ID Date Data Source [id number] 04/26/2019 09:05:00 PM [facility] Value Range Interpretation Description Data Sup porting Code Source(s) Document(s ) Carbon 29 mmol/L [facility] dioxide, Hospital total [Moles/volu me] in Serum or Plasma ID Date Data Source [id number] 04/26/2019 09:05:00 PM [facility] Name Value Range Interpretation Description Data Sup porting Code Source(s) Document(s ) Chloride 106 [facility] [Moles/volum mmol/L Hospital e] in Serum or Plasma ID Date Data Source [id number] 04/26/2019 09:05:00 PM [facility] Value Range Interpretation Description Data Sup porting Code Source(s) Document(s ) Potassium 4.5 [facility] [Moles/volume mmol/L Hospital ] in Serum or Plasma ID Date Data Source [id number] 04/26/2019 09:05:00 PM [facility] Value Range Interpretation Description Data Sup porting Code Source(s) Document(s ) Sodium 142 mmol/L [facility] [[facility]] in Serum or Plasma ID Date Data Source [id number] 04/26/2019 09:05:00 PM [facility] Value Range Interpretation Description Data Sup porting Code Source(s) Document(s ) Glucose 113 mg/dL [facility] [Mass/volume Hospital ] in Serum or Plasma ID Date Data Source [id number] 04/26/2019 09:05:00 PM [facility] Value Range Interpretation Code Description Data Supporting Source(s) Document(s ) NUCLEATED RBCS 0.0 % [facility] (AUTO Hospital DIFF%)DIS ID Date Data Source [id number] 04/26/2019 09:05:00 PM [facility] Value Range Interpretation Description Data Sup porting Code Source(s) Document(s ) Differential AUTOMATED [facility] cell count [facility] method - Blood ID Date Data Source [id number] 04/26/2019 09:05:00 PM [facility] Value Range Interpretation Description Data Sup porting Code Source(s) Document(s ) Immature 0.03 [facility] granulocytes 10*3/uL Hospital [#/volume] in Blood by Automated count ID Date Data Source [id number] 04/26/2019 09:05:00 PM [facility] Value Range Interpretation Description Data Sup porting Code Source(s) Document(s ) Basophils 0.05 [facility] [#/volume] in 10*3/uL Hospital Blood by Automated count ID Date Data Source [id number] 04/26/2019 09:05:00 PM [facility] Value Range Interpretation Description Data Sup porting Code Source(s) Document(s ) Eosinophils 0.24 [facility] [#/volume] in 10*3/uL Hospital Blood by Automated count ID Date Data Source [id number] 04/26/2019 09:05:[address] [facility] Name Value Range Interpretation Description Data Sup porting Code Source(s) Document(s ) Monocytes 0.59 [facility] [#/volume] in 10*3/uL Hospital Blood by Automated count ID Date Data Source [id number] 04/26/2019 09:05:00 PM [facility] Value Range Interpretation Description Data Sup porting Code Source(s) Document(s ) Lymphocytes 2.31 [facility] [#/volume] in 10*3/uL Hospital Blood by Automated count ID Date Data Source [id number] 04/26/2019 09:05:00 PM EST [facility] Value Range Interpretation Description Data Sup porting Code Source(s) Document(s ) Neutrophils 8.60 [facility] [#/volume] in 10*3/uL Hospital Blood by Automated count ID Date Data Source [id number] 04/26/2019 09:05:00 PM EST [facility] Value Range Interpretation Description Data Sup porting Code Source(s) Document(s ) Nucleated 0.0 % [facility] erythrocytes/10 Hospital 0 leukocytes [Ratio] in Blood by Automated count ID Date Data Source [id number] 04/26/2019 09:05:00 PM [facility] Name Value Range Interpretation Description Data Sup porting Code Source(s) Document(s ) Immature 0.3 % [facility] granulocytes/10 Hospital 0 leukocytes in Blood by Automated count ID Date Data Source [id number] 04/26/2019 09:05:00 PM [facility] Value Range Interpretation Description Data Sup porting Code Source(s) Document(s ) Basophils/100 0.4 % [facility] leukocytes in Hospital Blood by Automated count ID Date Data Source [id number] 04/26/2019 09:05:[address] [facility] Name Value Range Interpretation Description Data Sup porting Code Source(s) Document(s ) Eosinophils/100 2.0 % [facility] leukocytes in Hospital Blood by Automated count ID Date Data Source [id number] 04/26/2019 09:05:[address] [facility] Name Value Range Interpretation Description Data Sup porting Code Source(s) Document(s ) Monocytes/100 5.0 % [facility] leukocytes in Hospital Blood by Automated count ID Date Data Source [id number] 04/26/2019 09:05:00 PM EST [facility] Value Range Interpretation Description Data Sup porting Code Source(s) Document(s ) Lymphocytes/10 19.5 % [facility] 0 leukocytes Hospital in Blood by Automated count ID Date Data Source [id number] 04/26/2019 09:05:[address] [facility] Name Value Range Interpretation Description Data Sup porting Code Source(s) Document(s ) Neutrophils/10 72.8 % [facility] 0 leukocytes Hospital in Blood by Automated count ID Date Data Source [id number] 04/26/2019 09:05:[address] [facility] Name Value Range Interpretation Description Data Sup porting Code Source(s) Document(s ) Platelet mean 9.8 fL [facility] volume Hospital [Entitic volume] in Blood by Automated count ID Date Data Source [id number] 04/26/2019 09:05:00 PM [facility] Value Range Interpretation Description Data Sup porting Code Source(s) Document(s ) Platelets 260 [facility] [#/volume] in 10*3/uL Hospital Blood by Automated count ID Date Data Source [id number] 04/26/2019 09:05:00 PM [facility] Value Range Interpretation Description Data Sup porting Code Source(s) Document(s ) Erythrocyte 12.9 % [facility] Hospital width [Ratio] by Automated count ID Date Data Source [id number] 04/26/2019 09:05:00 PM [facility] Value Range Interpretation Description Data Sup porting Code Source(s) Document(s ) Erythrocyte mean 33.9 [facility] corpuscular g/dL Hospital hemoglobin concentration [Mass/volume] by Automated count ID Date Data Source [id number] 04/26/2019 09:05:00 PM [facility] Value Range Interpretation Description Data Sup porting Code Source(s) Document(s ) Erythrocyte 30.3 pg [facility] corpuscular hemoglobin [Entitic mass] by Automated count ID Date Data Source [id number] 04/26/2019 09:05:00 PM [facility] Value Range Interpretation Description Data Sup porting Code Source(s) Document(s ) Erythrocyte 89.3 fL [facility] corpuscular volume [Entitic volume] by Automated count ID Date Data Source [id number] 04/26/2019 09:05:00 PM [facility] Value Range Interpretation Description Data Sup porting Code Source(s) Document(s ) Hematocrit 44.2 % [facility] [Volume Hospital Fraction] of Blood by Automated count ID Date Data Source [id number] 04/26/2019 09:05:00 PM [facility] Value Range Interpretation Description Data Sup porting Code Source(s) Document(s ) Hemoglobin 15.0 g/dL [facility] [Mass/volume] Hospital in Blood ID Date Data Source [id number] 04/26/2019 09:05:[address] [facility] Name Value Range Interpretation Description Data Sup porting Code Source(s) Document(s ) Erythrocytes 4.95 [facility] [#/volume] in 10*6/uL Hospital Blood by Automated count ID Date Data Source [id number] 04/26/2019 09:05:[address] [facility] Name Value Range Interpretation Description Data Sup porting Code Source(s) Document(s ) Leukocytes 11.8 [facility] [#/volume] in 10*3/uL Hospital Blood by Automated count ID Date Data Source [id number] 12/28/2018 04:02:00 PM [facility] Clinical Project Assistant:JOEY DOYLE Name Value Range Interpretation Description Data Sup porting Code Source(s) Document(s ) Glucose 101 mg/dL [facility] [Mass/volume] Hospital in Capillary blood by Glucometer ID Date Data Source [id number] 12/28/2018 06:44:00 AM [facility] Name Value Range Interpretation Description Data Sup porting Code Source(s) Document(s ) Aspartate 26 U/L White aminotransferase [place] [Enzymatic Hospital activity/volume] in Serum or Plasma ID Date Data Source [id number] 12/28/2018 06:44:00 AM [facility] Name Value Range Interpretation Description Data Sup porting Code Source(s) Document(s ) Alanine 25 U/L White aminotransferase [place] [Enzymatic Hospital activity/volume] in Serum or Plasma ID Date Data Source [id number] 12/28/2018 06:44:00 AM [facility] Name Value Range Interpretation Description Data Sup porting Code Source(s) Document(s ) Alkaline 84 U/L [facility] phosphatase Hospital [Enzymatic activity/volume ] in Serum or Plasma ID Date Data Source [id number] 12/28/2018 06:44:[address] [facility] Name Value Range Interpretation Description Data Sup porting Code Source(s) Document(s ) Bilirubin.t 1.0 mg/dL [facility] [Mass/volum e] in Serum or Plasma ID Date Data Source [id number] 12/28/2018 06:44:[address] [facility] Name Value Range Interpretation Code Description Data Mary Kate rce(s) Supporting Document(s ) Albumin/Glob 1.8 [facility] ulin [Mass Hospital Ratio] in Serum or Plasma ID Date Data Source [id number] 12/28/2018 06:44:[address] [facility] Name Value Range Interpretation Description Data Sup porting Code Source(s) Document(s ) Albumin 4.2 g/dL [facility] [Mass/volume Hospital ] in Serum or Plasma ID Date Data Source [id number] 12/28/2018 06:44:[address] [facility] Name Value Range Interpretation Description Data Sup porting Code Source(s) Document(s ) Protein 6.6 g/dL [facility] [Mass/volume Hospital ] in Serum or Plasma ID Date Data Source [id number] 12/28/2018 06:44:[address] [facility] Name Value Range Interpretation Description Data Sup porting Code Source(s) Document(s ) Calcium 8.7 mg/dL [facility] [Mass/volume Hospital ] in Serum or Plasma ID Date Data Source [id number] 12/28/2018 06:44:[address] [facility] Name Value Range Interpretation Code Description Data Mary Kate rce(s) Supporting Document(s ) Urea 16.3 [facility] nitrogen/Cre Hospital atinine [Mass Ratio] in Serum or Plasma ID Date Data Source [id number] 12/28/2018 06:44:[address] [facility] Name Value Range Interpretation Description Data Sup porting Code Source(s) Document(s ) Creatinine 0.8 mg/dL [facility] [Mass/volume] Hospital in Serum or Plasma ID Date Data Source [id number] 12/28/2018 06:44:[address] [facility] Name Value Range Interpretation Description Data Sup porting Code Source(s) Document(s ) Urea 13 mg/dL [facility] nitrogen Hospital [Mass/volume ] in Serum or Plasma ID Date Data Source [id number] 12/28/2018 06:44:00 AM EDT [facility] Value Range Interpretation Code Description Data Mary Kate rce(s) Supporting Document(s ) Anion gap in 14 [facility] Serum or Hospital Plasma ID Date Data Source [id number] 12/28/2018 06:44:[address] [facility] Name Value Range Interpretation Description Data Sup porting Code Source(s) Document(s ) Carbon 24 mmol/L [facility] dioxide, Hospital total [Moles/volu me] in Serum or Plasma ID Date Data Source [id number] 12/28/2018 06:44:[address] [facility] Name Value Range Interpretation Description Data Sup porting Code Source(s) Document(s ) Chloride 104 [facility] [Moles/volum mmol/L Hospital e] in Serum or Plasma ID Date Data Source [id number] 12/28/2018 06:44:[address] [facility] Name Value Range Interpretation Description Data Sup porting Code Source(s) Document(s ) Potassium 4.7 [facility] [Moles/volume mmol/L Hospital ] in Serum or Plasma ID Date Data Source [id number] 12/28/2018 06:44:00 AM EDT [facility] Name Value Range Interpretation Description Data Sup porting Code Source(s) Document(s ) Sodium 137 mmol/L [facility] [Moles/volu Hospital ma] in Serum or Plasma ID Date Data Source [id number] 12/28/2018 06:44:00 AM EDT [facility] Value Range Interpretation Description Data Sup porting Code Source(s) Document(s ) Glucose 118 mg/dL [facility] [Mass/volume Hospital ] in Serum or Plasma ID Date Data Source [id number] 12/28/2018 06:44:00 AM EDT [facility] Value Range Interpretation Description Data Sup porting Code Source(s) Document(s ) Platelet mean 9.7 fL [facility] [Entitic volume] in Blood by Automated count ID Date Data Source [id number] 12/28/2018 06:44:00 AM EDT [facility] Value Range Interpretation Description Data Sup porting Code Source(s) Document(s ) Platelets 306 [facility] [#/volume] in 10*3/uL [facility] Blood by Automated count ID Date Data Source [id number] 12/28/2018 [facility] Description Data Sup porting Code Source(s) Document(s ) Erythrocyte 12.4 % [facility] Hospital width [Ratio] by Automated count ID Date Data Source [id number] 12/28/2018 [facility]:44[facility] Interpretation Description Data Sup porting Code Source(s) Document(s ) Erythrocyte mean 34.1 [facility] corpuscular g/dL Hospital hemoglobin concentration [Mass/volume] by Automated count ID Date Data Source [id number] 12/28/2018 [facility]:44[facility] Interpretation Description Data Sup porting Code Source(s) Document(s ) Erythrocyte 30.6 pg [facility] mean Hospital corpuscular hemoglobin [Entitic mass] by Automated count ID Date Data Source [id number] 12/28/2018 06:44:[address] [facility] Name Value Range Interpretation Description Data Sup porting Code Source(s) Document(s ) Erythrocyte 89.7 fL [facility] mean Hospital corpuscular volume [Entitic volume] by Automated count ID Date Data Source [id number] 12/28/2018 [facility] Value Range Interpretation Description Data Sup porting Code Source(s) Document(s ) Hematocrit 36.7 % [facility] [Volume Hospital Fraction] of Blood by Automated count ID Date Data Source [id number] 12/28/2018 06:44:[address] [facility] Name Value Range Interpretation Description Data Sup porting Code Source(s) Document(s ) Hemoglobin 12.5 g/dL [facility] [Mass/volume] Hospital in Blood ID Date Data Source [id number] 12/28/2018 06:44:00 AM [facility] Value Range Interpretation Description Data Sup porting Code Source(s) Document(s ) Erythrocytes 4.09 [facility] [#/volume] in 10*6/uL Hospital Blood by Automated count ID Date Data Source [id number] 12/28/2018 [facility]:44[facility] Value Range Interpretation Description Data Sup porting Code Source(s) Document(s ) Leukocytes 14.5 [facility] [#/volume] in 10*3/uL Hospital Blood by Automated count ID Date Data Source [id number] 12/27/2018 07:58:00 AM [facility] Value Range Interpretation Description Data Sup porting Code Source(s) Document(s ) Choriogonadotropin NEGATIVE White ( test) [place] [Presence] in Urine Hospital ID Date Data Source [id number] 12/10/2018 12[facility]13[facility] ADA RECOMMENDATIONS: NON-DIABETES: 4.0-6.0% CONTROLLED DIABETES: 6.0-8.0% UNCONTROLLED DIABETE S: UP TO 20%RECOMMENDED ADA RESULT FOR THERAPY: HEMOGLOBIN A1C RESULT LESS DAVID N 7%.NOTE: METHOD CHANGE EFFECTIVE 11/03/14. Name Value Range Interpretation Description Data Sup porting Code Source(s) Document(s ) Hemoglobin 5.9 % [facility] A1c/Hemoglobin. Hospital total in Blood ID Date Data Source [id number] 12/10/2018 12:13:00 PM [facility] UNITS ARE IN ml/min/1.73m2.IF PATIENT IS -CENTRAL AFRICAN, MULTIPLY REPORTED RESULT BY 1.21. Name Value Range Interpretation Description Data Sup porting Code Source(s) Document(s ) Glomerular > 60 [facility] filtration mL/min Hospital rate/1.73 sq M.predicted [Volume Rate/Area] in Serum or Plasma by Creatinine-bas ed formula (MDRD) ID Date Data Source [id number] 12/10/2018 12:13:00 PM [facility] THERAPEUTIC RANGES:UNFRACTIONATED HEPARI N THERAPY: 60-90 SECONDSARGATROBAN THERAPY: 49-99 SECONDS Name Value Range Interpretation Description Data Sup porting Code Source(s) Document(s ) aPTT in 35.1 s [facility] Platelet poor [facility] plasma by Coagulation assay ID Date Data Source [id number] 12/10/2018 12:13:00 PM [facility] THERAPEUTIC RANGE FOR STANDARD ORALANTIC OAGULANT THERAPY: 2.0-3.0THERAPEUTIC RANGE FOR HIGH DOSE ORALANTICOAGULANT THERAPY (MECHANICAL HEARTVALVE REPLACEMENT): 2.5-3.5 Name Value Range Interpretation Description Data Sup porting Code Source(s) Document(s ) INR in Platelet 1.1 [facility] poor plasma by Hospital Coagulation assay ID Date Data Source [id number] 12/10/2018 12:13:[address] [facility] Name Value Range Interpretation Description Data Sup porting Code Source(s) Document(s ) PT panel - 11.9 s [facility] Platelet poor Hospital plasma by Coagulation assay ID Date Data Source [id number] 12/10/2018 12:13:00 PM EDT [facility] Value Range Interpretation Code Description Data Supporting Source(s) Document(s ) NUCLEATED RBCS 0.0 % [facility] (AUTO Hospital DIFF%)DIS ID Date Data Source [id number] 12/10/2018 [facility] Interpretation Description Data Sup porting Code Source(s) Document(s ) Differential AUTOMATED [facility] cell count [facility] method - Blood ID Date Data Source [id number] 12/10/2018 12:13:00 PM [facility] Value Range Interpretation Description Data Sup porting Code Source(s) Document(s ) Immature 0.02 [facility] granulocytes 10*3/uL Hospital [#/volume] in Blood by Automated count ID Date Data Source [id number] 12/10/2018 12:13:[address] [facility] Name Value Range Interpretation Description Data Sup porting Code Source(s) Document(s ) Basophils 0.07 [facility] [#/volume] in 10*3/uL Hospital Blood by Automated count ID Date Data Source [id number] 12/10/2018 [facility]:13[facility] Value Range Interpretation Description Data Sup porting Code Source(s) Document(s ) Eosinophils 0.34 [facility] [#/volume] in 10*3/uL Hospital Blood by Automated count ID Date Data Source [id number] 12/10/2018 12:13:00 PM EDT [facility] Value Range Interpretation Description Data Sup porting Code Source(s) Document(s ) Monocytes 0.49 [facility] [#/volume] in 10*3/uL Hospital Blood by Automated count ID Date Data Source [id number] 12/10/2018 12:13:00 PM EDT [facility] Value Range Interpretation Description Data Sup porting Code Source(s) Document(s ) Lymphocytes 3.26 [facility] [#/volume] in 10*3/uL Hospital Blood by Automated count ID Date Data Source [id number] 12/10/2018 12:13:00 PM EDT [facility] Value Range Interpretation Description Data Sup porting Code Source(s) Document(s ) Neutrophils 4.35 [facility] [#/volume] in 10*3/uL Hospital Blood by Automated count ID Date Data Source [id number] 12/10/2018 [facility] Interpretation Description Data Sup porting Code Source(s) Document(s ) Nucleated 0.0 % [facility] erythrocytes/10 Hospital 0 leukocytes [Ratio] in Blood by Automated count ID Date Data Source [id number] 12/10/2018 12:[facility] Interpretation Description Data Sup porting Code Source(s) Document(s ) Immature 0.2 % [facility] granulocytes/10 Hospital 0 leukocytes in Blood by Automated count ID Date Data Source [id number] 12/10/2018 [facility] Interpretation Description Data Sup porting Code Source(s) Document(s ) Basophils/100 0.8 % [facility] leukocytes in Hospital Blood by Automated count ID Date Data Source [id number] 12/10/2018 12:13:00 PM [facility] Name Value Range Interpretation Description Data Sup porting Code Source(s) Document(s ) Eosinophils/100 4.0 % [facility] leukocytes in Hospital Blood by Automated count ID Date Data Source [id number] 12/10/2018 12:13:[address] [facility] Name Value Range Interpretation Description Data Sup porting Code Source(s) Document(s ) Monocytes/100 5.7 % [facility] leukocytes in Hospital Blood by Automated count ID Date Data Source [id number] 12/10/2018 12:13:[address] [facility] Name Value Range Interpretation Description Data Sup porting Code Source(s) Document(s ) Lymphocytes/10 38.2 % [facility] 0 leukocytes Hospital in Blood by Automated count ID Date Data Source [id number] 12/10/2018 12:13:[address] [facility] Name Value Range Interpretation Description Data Sup porting Code Source(s) Document(s ) Neutrophils/10 51.1 % [facility] 0 leukocytes Hospital in Blood by Automated count Procedure Social History Code Duration Value Status Description Data Source(s ) Smoking 08/05/2019 Current Smoker completed Current Smoker eCW3 ( [place] 12:00:00 AM [facility]) Smoking 08/05/2019 Current Smoker completed Current Smoker eCW3 ( [place] 12:00:00 AM [facility]) Smoking 08/05/2019 Current Smoker completed Current Smoker eCW3 ( [place] 12:00:00 AM [facility]) Smoking 08/05/2019 Current Smoker completed Current Smoker eCW3 ( [place] 12:[facility]:00 AM [facility]) Smoking 08/05/2019 Current Smoker completed Current Smoker eCW3 ( [place] 12:00:00 AM [facility]) Smoking 08/02/2019 Current Smoker completed Current Smoker eCW3 ( [place] 12:00:00 AM [facility]) Smoking 12/27/2018 Ex-smoker completed Ex-smoker (finding) [facility] 08:24:00 AM EDT (finding) Hospital Smoking 12/23/2018 Current Smoker completed Current Smoker eCW3 ( [place] 12:00:00 AM [facility]) Smoking 12/23/2018 Current Smoker completed Current Smoker eCW3 ( [place] 12:00:00 AM [facility]) Smoking 09/07/2018 Current Smoker completed Current Smoker eCW3 ( [place] 12:00:00 AM [facility]) Smoking 05/12/2018 Current Smoker completed Current Smoker eCW3 ( [place] 12:00:00 AM [facility]) Smoking 05/12/2018 Current Smoker completed Current Smoker eCW3 ( [place] 12:00:00 AM [facility]) Smoking 05/12/2018 Current Smoker completed Current Smoker eCW3 ( [place] 12:00:00 AM [facility]) Smoking 05/12/2018 Current Smoker completed Current Smoker eCW3 ( [place] 12:00:00 AM [facility]) Current Smoker completed Current Smoker eCW3 ( [facility]) Current Smoker completed Current Smoker eCW3 ( [facility]) Current Smoker completed Current Smoker eCW3 ( [facility]) Current Smoker completed Current Smoker eCW3 ( [facility]) Current Smoker completed Current Smoker eCW3 ( [facility]) Current Smoker completed Current Smoker eCW3 ( [facility]) Current Smoker completed Current Smoker eCW3 ( [facility]) Smoking Unknown if ever completed Unknown if ever [facility] Smoking Unknown if ever completed Unknown if ever [facility] Current Smoker completed Current Smoker eCW3 ( [facility]) Current Smoker completed Current Smoker eCW3 ( [facility]) Current Smoker completed Current Smoker eCW3 ( [facility]) Current Smoker completed Current Smoker eCW3 ( [facility]) Current Smoker completed Current Smoker eCW3 ( [facility]) Current Smoker completed Current Smoker eCW3 ( [facility]) Vital Signs ID Date Data Source UNK Name Value Range Interpretation Code Description Data Source(s) Diastolic blood 70 mm[Hg] 70 mm[Hg] [facility] pressure Hospital Systolic blood 116 mm[Hg] 116 mm[Hg] [facility] pressure Hospital Respiratory rate 20 /min 20 /min [facility] Heart rate 56 /min 56 /min [facility] Body temperature 36.51026 36.10849 [facility] Body temperature 97.5 [degF] 97.5 [degF] [facility] Body mass index 33.8 kg/m2 33.8 kg/m2 [facility] (BMI) [Ratio] Hospital Body weight 179 [lb_av] 179 [lb_av] [facility] Diastolic blood 98 mm[Hg] 98 mm[Hg] [facility] pressure Hospital Systolic blood 143 mm[Hg] 143 mm[Hg] [facility] Respiratory rate 18 /min 18 /min [facility] Heart rate 87 /min 87 /min [facility] Body temperature 36.25133 36.74152 [facility] Body temperature 98.0 [degF] 98.0 [degF] [facility] Body mass index 35.0 kg/m2 35.0 kg/m2 [facility] (BMI) [Ratio] Hospital Body weight 180.36 180.36 [lb_av] [facility] [lb_av] [facility] Diastolic blood 79 mm[Hg] 79 mm[Hg] [facility] Hospital Systolic blood 114 mm[Hg] 114 mm[Hg] [facility] pressure [facility] Respiratory rate 19 /min 19 /min [facility] Heart rate 80 /min 80 /min [facility] Body temperature 36.92446 36.40652 [facility] Body temperature 97.7 [degF] 97.7 [degF] [facility] Diastolic blood 84 mm[Hg] 84 mm[Hg] eCW3 ([facility]) Systolic blood 124 mm[Hg] 124 mm[Hg] eCW3 ([facility]) Body temperature 97.6 [degF] 97.6 [degF] eCW3 ( [facility]) Body mass index 44.96 kg/m2 44.96 kg/m2 eCW3 ([facility] (BMI) [Ratio] [facility]) Body weight 238 [lb_av] 238 [lb_av] eCW3 ([facility]) Body height 61 [in_i] 61 [in_i] eCW3 ([facility]) Body mass index 46.7 kg/m2 46.7 kg/m2 [facility] (BMI) [Ratio] Hospital Body weight 239 [lb_av] 239 [lb_av] [facility] Body mass index 44.59 kg/m2 44.59 kg/m2 eCW3 ([facility] (BMI) [Ratio] [facility]) Body weight 236 [lb_av] 236 [lb_av] eCW3 ([facility]) Body height 61 [in_i] 61 [in_i] eCW3 ([facility]) Diastolic blood 86 mm[Hg] 86 mm[Hg] eCW3 ([facility]) Systolic blood 125 mm[Hg] 125 mm[Hg] eCW3 ([facility]) Body temperature 98.6 [degF] 98.6 [degF] eCW3 ( [facility]) Body mass index 44.59 kg/m2 44.59 kg/m2 eCW3 ([facility] (BMI) [Ratio] [facility]) Body weight 236 [lb_av] 236 [lb_av] eCW3 ([facility]) Body height 61 [in_i] 61 [in_i] eCW3 ([facility]) Body mass index 45.15 kg/m2 45.15 kg/m2 eCW3 ([facility] (BMI) [Ratio] [facility]) Body weight 239 [lb_av] 239 [lb_av] eCW3 ([facility]) Body height 61 [in_i] 61 [in_i] eCW3 ([facility]) Diastolic blood 78 mm[Hg] 78 mm[Hg] eCW3 ([facility]) Systolic blood 117 mm[Hg] 117 mm[Hg] eCW3 ([facility]) Body temperature 98.0 [degF] 98.0 [degF] eCW3 ( [facility]) Body mass index 45.15 kg/m2 45.15 kg/m2 eCW3 ([facility] (BMI) [Ratio] [facility]) Body weight 239 [lb_av] 239 [lb_av] eCW3 ([facility]) Body height 61 [in_i] 61 [in_i] eCW3 ([facility]) Body mass index 44.78 kg/m2 44.78 kg/m2 eCW3 ([facility] (BMI) [Ratio] [facility]) Body weight 237 [lb_av] 237 [lb_av] eCW3 ([facility]) Body height 61 [in_i] 61 [in_i] eCW3 ([facility]) Body mass index 44.40 kg/m2 44.40 kg/m2 eCW3 ([facility] (BMI) [Ratio] [facility]) Body weight 235 [lb_av] 235 [lb_av] eCW3 ([facility]) Body height 61 [in_i] 61 [in_i] eCW3 ([facility]) Body mass index 44.40 kg/m2 44.40 kg/m2 eCW3 ([facility] (BMI) [Ratio] [facility]) Body weight 235 [lb_av] 235 [lb_av] eCW3 ([facility]) Body height 61 [in_i] 61 [in_i] eCW3 ([facility]) Patient Treatment Plan of Care Planned Activity Planned Date Details Description Data Source (s) Nystatin 745837 UNT/ML 08/02/2019 12:00:00 eCW3 ([place] Topical Cream [facility]) Albuterol 0.83 MG/ML 04/29/2019 12:00:00 eCW3 ([place] Inhalant Solution AM [facility]) Ibuprofen 600 MG Oral 12/23/2018 12:00:00 eCW3 ([place] Tablet [facility]) Ibuprofen 600 MG Oral 12/23/2018 12:00:00 eCW3 ([place] Tablet [facility]) 200 ACTUAT Albuterol 07/25/2017 12:00:00 eCW3 ([place] 0.09 MG/ACTUAT Metered AM [facility]) Dose Inhaler [Ventolin] 200 ACTUAT Albuterol 07/25/2017 12:00:00 eCW3 ([place] 0.09 MG/[facility]UAT [facility] Dose Inhaler [Ventolin] 200 ACTUAT Albuterol 07/25/2017 12:00:00 eCW3 ([place] 0.09 MG/ACTUAT [facility]ered [facility]) Dose Inhaler [Ventolin] 200 ACTUAT Albuterol 07/25/2017 12:00:00 eCW3 ([place] 0.09 MG/ACTUAT [facility]ered [facility]) Dose Inhaler [Ventolin] Nystatin [id number] UNT/ML eCW3 ([facility] Topical Cream [facility]) Nystatin 370851 UNT/ML eCW3 ([facility] Topical Cream [facility]) Nystatin 223620 UNT/ML eCW3 ([facility] Topical Cream [facility]) Nystatin [id number] UNT/ML eCW3 ([facility] Topical Cream [facility]) Nystatin [id number] UNT/ML eCW3 ([facility] Topical Cream [facility]) 200 ACTUAT Albuterol eCW3 ([place] 0[facility]09 [facility]) Dose Inhaler [Ventolin]
[2019-12-25] MEDS ORDERED: MORPHINE SULFATE 2 MG/ML VIAL ONE ×2 (14:58→20:30)
[2019-12-25 15:34] LABS: BODY FLUID HISTIOCYTES 1 %
[2019-12-25] MEDS: MORPHINE SULFATE 2 MG/ML VIAL IVPUSH PRN ×2 (15:54→20:41)
[2019-12-26] MEDS: MORPHINE SULFATE 2 MG/ML VIAL IVPUSH PRN ×4 (04:05→21:45)
[2019-12-26 04:47] VITALS: BMI 32.0
[2019-12-26] MEDS ORDERED: ACETAMINOPHEN 1000 MG/100 ML VIAL (NON FORMULARY) IVPB PRN (08:27)
--- NOTE | 2019-12-26 08:43 | PN ---
Progress Note (short form) - Note Progress Note: Ortho Pt seen and examined. Pt is feeling better. Selected Entries 12/26/19 06:00 Temperature 98.0 F Pulse Rate 66 Respiratory 16 Rate Blood Pressure 125/71 Laboratory Tests 12/26/19 07:35 WBC Pending Hgb Pending Hct Pending Plt Count Pending decr erythema, decr swelling, incr rom, + ttp especially over aspiration site, calf soft, nt, nvi cultures neg to date a/p awaiting ID consult abx as per ID d/w Dr. Lugo in detail, plan is to observe on IV abx may need arthroscopic washout in future npo after midnight tonight in case will follow
[2019-12-26 09:18] LABS: POTASSIUM 4.4 mmol/L (3.5-5.1)
[2019-12-26 09:25] LABS: BLOOD UREA NITROGEN 8.6 mg/dL (7-18); CALCIUM 8.6 mg/dL (8.5-10.1); CREATININE 0.7 mg/dL (0.55-1.3)
[2019-12-26 09:37] LABS: BASO % 0.5 % (0-2.0); EOS % 3.6 % (0-4.5); HEMATOCRIT 37.5 % (32.4-45.2); HEMOGLOBIN 12.9 GM/dL (10.7-15.3); LYMPH % 40.4 % (8-40); MCH 32.2 pg (25.7-33.7); MCHC 34.5 g/dl (32.0-36.0); MEAN CELL VOLUME 93.2 fl (80-96); MEAN PLT VOLUME 8.3 fl (7.5-11.1); MONO % 6.5 % (3.8-10.2); PLATELET COUNT 230 K/MM3 (134-434); RBC 4.02 M/mm3 (3.60-5.2); RDW 13.2 % (11.6-15.6); WHITE BLOOD COUNT 8.6 K/mm3 (4.0-10.0)
[2019-12-26] MEDS ORDERED: DEXTROSE 5%-WATER 100 ML IVPB ONE (09:45)
[2019-12-26] MEDS ORDERED: VANCOMYCIN HCL 1,250 MG in DEXTROSE 5%-WATER - 250 ML IVPB SCH (10:00)
[2019-12-26] MEDS ORDERED: CEFTRIAXONE 2 GM in DEXTROSE 5%-WATER 100 ML IVPB SCH (10:00)
[2019-12-26 10:41] LABS: INR 1.08 (0.83-1.09); PROTHROMBIN TIME (PATIENT) 12.8 SEC (9.7-13.0)
--- NOTE | 2019-12-26 12:50 | PN ---
Teaching Attending Note Name of Resident: Sadie Morel ATTENDING PHYSICIAN STATEMENT I saw and evaluated the patient. I reviewed the resident's note and discussed the case with the resident. I agree with the resident's findings and plan as documented. SUBJECTIVE: pt seen and examined OBJECTIVE: Last Vital Signs Temp Pulse Resp BP Pulse Ox 98.3 F 98 H 16 135/76 95 12/26/19 10:00 12/26/19 10:00 12/26/19 10:00 12/26/19 10:00 12/26/19 10:00 GENERAL: Awake, alert, and fully oriented, in no acute distress. HEAD: Normal with no signs of trauma. EYES: Pupils equal, round and reactive to light, sclera anicteric, conjunctiva clear. LUNGS: Breath sounds equal, clear to auscultation bilaterally. No wheezes, and no crackles. No accessory muscle use. HEART: Regular rate and rhythm, normal S1 and S2 ABDOMEN: Soft, nontender, not distended MUSCULOSKELETAL: Normal range of motion at all joints. No bony deformities or tenderness. No CVA tenderness. UPPER EXTREMITIES: 2+ pulses, warm, well-perfused. No cyanosis. No clubbing. No peripheral edema. LOWER EXTREMITIES: 2+ pulses, warm, well-perfused. No calf tenderness. No peripheral edema. Rt ankle, swelling, tender, limited ROM due to pain. NEUROLOGICAL: Cranial nerves II-XII intact. Normal speech. CBCD WBC 8.6 K/mm3 (4.0-10.0) 12/26/19 07:35 RBC 4.02 M/mm3 (3.60-5.2) 12/26/19 07:35 Hgb 12.9 GM/dL (10.7-15.3) 12/26/19 07:35 Hct 37.5 % (32.4-45.2) 12/26/19 07:35 MCV 93.2 fl (80-96) 12/26/19 07:35 MCHC 34.5 g/dl (32.0-36.0) 12/26/19 07:35 RDW 13.2 % (11.6-15.6) 12/26/19 07:35 Plt Count 230 K/MM3 (134-434) 12/26/19 07:35 MPV 8.3 fl (7.5-11.1) 12/26/19 07:35 CMP Sodium 138 mmol/L (136-145) 12/26/19 07:35 Potassium 4.4 mmol/L (3.5-5.1) 12/26/19 07:35 Chloride 104 mmol/L (98-107) 12/26/19 07:35 Carbon Dioxide 29 mmol/L (21-32) 12/26/19 07:35 Anion Gap 5 MMOL/L (8-16) L 12/26/19 07:35 BUN 8.6 mg/dL (7-18) 12/26/19 07:35 Creatinine 0.7 mg/dL (0.55-1.3) 12/26/19 07:35 Random Glucose 87 mg/dL (74-106) 12/26/19 07:35 Calcium 8.6 mg/dL (8.5-10.1) 12/26/19 07:35 Total Bilirubin 0.6 mg/dL (0.2-1) 12/25/19 03:30 AST 15 U/L (15-37) 12/25/19 03:30 ALT 18 U/L (13-61) 12/25/19 03:30 Alkaline Phosphatase 92 U/L (45-117) 12/25/19 03:30 Total Protein 7.3 g/dl (6.4-8.2) 12/25/19 03:30 Albumin 4.2 g/dl (3.4-5.0) 12/25/19 03:30 Active Medications Acetaminophen (Ofirmev Injection -) 1,000 mg IVPB Q6H PRN PRN Reason: PAIN LEVEL 1-5 Stop: 12/27/19 08:27 Vancomycin HCl 1,250 mg/ (Dextrose) 250 mls @ 250 mls/2 hr IVPB Q24H VU; Protocol Ceftriaxone Sodium 2 gm/ (Dextrose) 100 mls @ 200 mls/hr IVPB DAILY VU; Protoc ol Morphine Sulfate (Morphine Sulfate) 2 mg IVPUSH Q4H PRN PRN Reason: PAIN LEVEL 7 - 10 Last Admin: 12/26/19 04:05 Dose: 2 mg Documented by: ASSESSMENT AND PLAN: 39 yo lady with h/o of mild intermittent asthma, s/p gastric sleeve (over 1 yr ago; completed all phases) who presents today with 1 day of R ankle pain. # Septic arthritis, monoarticular sepsis POA, resolved denies trauma, IVDU, rash, or other systemic symptoms.Monogamous relationship synovial gram stain -ve Synovial fluids showed WBC>50K RBC>50K, negative crystals WBC count may be affected by RBC. lyme serology pending tentative arthroscopic washout in AM WBC normal today, no fever improving. on ceftriaxone, vancomycin ortho consult appreciated GI consult appreciated Asthma s/p gastric sleeve DVT prophylaxis
--- NOTE | 2019-12-26 14:27 | CON.ID ---
Consult Consult Specialty:: infectious diseases - Past Medical History ...LMP: 11/24/19 ...: No - Alcohol/Substance Use Hx Alcohol Use: Yes (tamia) - Smoking History Smoking history: Current every day smoker Have you smoked in the past 12 months: No Aproximately how many cigarettes per day: 3 Home Medications - Allergies Allergies/Adverse Reactions: Allergies Allergy/AdvReac Type Severity Reaction Status Date / Time shellfish derived Allergy Verified 12/25/19 01:14 - Home Medications Home Medications: Ambulatory Orders NK [No Known Home Medication] 12/25/19 Physical Exam Vital Signs: Vital Signs Temperature 98.3 F 12/26/19 10:00 Pulse Rate 98 H 12/26/19 10:00 Respiratory Rate 16 12/26/19 10:00 Blood Pressure 135/76 12/26/19 10:00 O2 Sat by Pulse Oximetry (%) 95 12/26/19 10:00 Labs: CBC, BMP 12/26/19 07:35 12/26/19 07:35
--- NOTE | 2019-12-26 14:53 | PN ---
Physical Exam: SUBJECTIVE: Patient seen and examined. Admits to R ankle pain on palpation, warmth. OBJECTIVE: Vital Signs Period Temp Pulse Resp BP Sys/Koch Pulse Ox Last 24 Hr 97.8 F-98.6 F 66-98 16-18 109-155/71-78 95-100 GENERAL: The patient is awake, alert, and fully oriented, in no acute distress. HEAD: Normal with no signs of trauma. EYES: PERRL, extraocular movements intact, sclera anicteric, conjunctiva clear. No ptosis. ENT: Ears normal, nares patent, oropharynx clear without exudates, moist mucous membranes. NECK: Trachea midline, full range of motion, supple. LUNGS: Breath sounds equal, clear to auscultation bilaterally, no wheezes, no crackles, no accessory muscle use. HEART: Regular rate and rhythm, S1, S2 without murmur, rub or gallop. ABDOMEN: Soft, nontender, nondistended, normoactive bowel sounds, no guarding, no rebound, no hepatosplenomegaly, no masses. EXTREMITIES: R ankle joint effusion, tender to palpation. Diminished ROM in all directions due to pain/effusion but no structural deformities. NEUROLOGICAL: Cranial nerves II through XII grossly intact. Normal speech, gait not observed. PSYCH: Normal mood, normal affect. SKIN: Warm, dry, normal turgor, no rashes or lesions noted Laboratory Results - last 24 hr 12/25/19 12/26/19 12/26/19 09:51 07:35 07:35 WBC 8.6 RBC 4.02 Hgb 12.9 Hct 37.5 MCV 93.2 MCH 32.2 MCHC 34.5 RDW 13.2 Plt Count 230 MPV 8.3 Absolute Neuts (auto) 4.2 Neutrophils % 49.0 D Lymphocytes % 40.4 H D Monocytes % 6.5 D Eosinophils % 3.6 D Basophils % 0.5 Nucleated RBC % 0 PT with INR INR Sodium 138 Potassium 4.4 Chloride 104 Carbon Dioxide 29 Anion Gap 5 L BUN 8.6 Creatinine 0.7 Est GFR (CKD-EPI)AfAm 125.61 Est GFR (CKD-EPI)NonAf 108.38 Random Glucose 87 Calcium 8.6 Fluid Neutrophils 98 Fluid Lymphocytes 1 Pleural Histocytes 1 12/26/19 09:50 WBC RBC Hgb Hct MCV MCH MCHC RDW Plt Count MPV Absolute Neuts (auto) Neutrophils % Lymphocytes % Monocytes % Eosinophils % Basophils % Nucleated RBC % PT with INR 12.80 INR 1.08 Sodium Potassium Chloride Carbon Dioxide Anion Gap BUN Creatinine Est GFR (CKD-EPI)AfAm Est GFR (CKD-EPI)NonAf Random Glucose Calcium Fluid Neutrophils Fluid Lymphocytes Pleural Histocytes Active Medications Generic Name Dose Route Start Last Admin Trade Name Freq PRN Reason Stop Dose Admin Acetaminophen 1,000 mg 12/26/19 08:27 Ofirmev Injection - IVPB 12/27/19 08:27 Q6H PRN PAIN LEVEL 1-5 Piperacillin Sod/Tazobactam 50 mls @ 100 mls/hr 12/26/19 14:30 Sod 3.375 gm/ Dextrose IVPB Q8H-IV VU Protocol Morphine Sulfate 2 mg 12/25/19 13:13 12/26/19 13:31 Morphine Sulfate IVPUSH 2 mg Q4H PRN Administration PAIN LEVEL 7 - 10 ASSESSMENT/PLAN: Pt is a 39 year old F with PMHx of intermittent asthma, s/p gastric sleeve presenting with ankle pain/erythema admitted for sepsis secondary to septic arthritis. #Septic arthritis, monoarticular -sepsis on admission, resolved -synovial fluid analysis with WBC >130k, RBC >50k, negative for crystals -synovial gram stain negative -Denies trauma, IV drug abuse, monogamous relationship -Lyme serology pending -On ceftriaxone and vanc -Ortho and ID consults appreciated -NPO after midnight for possible washout in AM #Hx of intermittent asthma -albuterol PRN FEN No stnading fluids Monitor electrolytes NPO after midnight PPx Dispo Scar to med surg. Cont vanc/ceftriaxone. Visit type - Emergency Visit Emergency Visit: Yes ED Registration Date: 12/25/19 Care time: The patient presented to the Emergency Department on the above date and was hospitalized for further evaluation of their emergent condition. - New Patient This patient is new to me today: No - Critical Care Critical Care patient: No ATTENDING PHYSICIAN STATEMENT I saw and evaluated the patient. I reviewed the resident's note and discussed the case with the resident. I agree with the resident's findings and plan as documented. SUBJECTIVE: OBJECTIVE: ASSESSMENT AND PLAN:
[2019-12-26] MEDS ORDERED: PIPERACILLIN/TAZOBACTAM 3.375 GM VIAL IVPB ONE ×2 (15:24→17:28)
[2019-12-26] MEDS ORDERED: DEXTROSE 5%-WATER - 50 ML IVPB ONE ×2 (15:24→17:28)
[2019-12-26] MEDS: PIPERACILLIN/TAZOB 3.375 GM 3.375 GM in DEXTROSE 5%-WATER - 50 ML IVPB SCH ×2 (15:46→18:05)
[2019-12-27] MEDS ORDERED: DEXTROSE 5%-WATER - 50 ML IVPB ONE ×3 (01:14→16:59)
[2019-12-27] MEDS ORDERED: PIPERACILLIN/TAZOBACTAM 3.375 GM VIAL IVPB ONE ×3 (01:14→16:59)
[2019-12-27] MEDS: PIPERACILLIN/TAZOB 3.375 GM 3.375 GM in DEXTROSE 5%-WATER - 50 ML IVPB SCH ×3 (01:59→17:11)
[2019-12-27] MEDS ORDERED: ACETAMINOPHEN 325 MG TABLET (FP) PO ONE (03:37)
[2019-12-27 08:41] LABS: BASO % 0.6 % (0-2.0); EOS % 3.6 % (0-4.5); HEMATOCRIT 37.2 % (32.4-45.2); HEMOGLOBIN 12.9 GM/dL (10.7-15.3); LYMPH % 33.5 % (8-40); MCH 32.5 pg (25.7-33.7); MCHC 34.7 g/dl (32.0-36.0); MEAN CELL VOLUME 93.5 fl (80-96); MEAN PLT VOLUME 8.4 fl (7.5-11.1); MONO % 5.5 % (3.8-10.2); NEUT % 56.8 % (42.8-82.8); PLATELET COUNT 225 K/MM3 (134-434); RBC 3.97 M/mm3 (3.60-5.2); RDW 13.4 % (11.6-15.6); WHITE BLOOD COUNT 9.6 K/mm3 (4.0-10.0)
[2019-12-27 09:05] LABS: BLOOD UREA NITROGEN 10.2 mg/dL (7-18); CALCIUM 8.6 mg/dL (8.5-10.1); CREATININE 0.7 mg/dL (0.55-1.3); MAGNESIUM 2.2 mg/dL (1.8-2.4); PHOSPHOROUS 3.7 mg/dL (2.5-4.9); POTASSIUM 4.4 mmol/L (3.5-5.1)
--- NOTE | 2019-12-27 09:54 | PN ---
Progress Note (short form) - Note Progress Note: Pt seen and examined. She states she is "atleast 50% better" overall, including a noticeable decrease in swelling, erythema, heat, pain, tenderness of the right ankle. This morning her range of motion is quite good, and much improved with less pain. No erythema. Mild swelling. Still + tender. + pain with weight bearing. AVSS Blood cx Pending WBC decreased to 9.6 ESR was only at a high of 3 Overall much improved, right ankle infection Rec con't IV antibiotics. No surgery rec at this time. She can WBAT, ambulation allowed. Please provide her with a cane. Elevate right ankle.
[2019-12-27] MEDS: ACETAMINOPHEN 325 MG TABLET (FP) PO PRN ×2 (10:56→20:15)
[2019-12-27] MEDS: MORPHINE SULFATE 2 MG/ML VIAL IVPUSH PRN ×3 (12:01→22:22)
--- NOTE | 2019-12-27 12:49 | PN ---
Progress Note, Physician History of Present Illness: stable improving swelling has improved pain much better - Current Medication List Current Medications: Active Medications Acetaminophen (Tylenol -) 650 mg PO Q6H PRN PRN Reason: Fever Or Pain Last Admin: 12/27/19 10:56 Dose: 650 mg Documented by: Piperacillin Sod/Tazobactam (Sod 3.375 gm/ Dextrose) 50 mls @ 100 mls/hr IVPB Q8H-IV VU; Protocol Last Admin: 12/27/19 10:58 Dose: 100 mls/hr Documented by: Morphine Sulfate (Morphine Sulfate) 2 mg IVPUSH Q4H PRN PRN Reason: PAIN LEVEL 7 - 10 Last Admin: 12/27/19 12:01 Dose: 2 mg Documented by: - Objective Vital Signs: Vital Signs Temperature 98.2 F 12/27/19 10:00 Pulse Rate 78 12/27/19 10:00 Respiratory Rate 18 12/27/19 10:00 Blood Pressure 118/85 12/27/19 10:00 O2 Sat by Pulse Oximetry (%) 98 12/27/19 10:00 Constitutional: Yes: No Distress, Calm Cardiovascular: Yes: S1, S2 Respiratory: Yes: Regular, CTA Bilaterally Gastrointestinal: Yes: Normal Bowel Sounds, Soft Musculoskeletal: Yes: WNL Extremities: Yes: Other (ankle swelling improved) Labs: CBC, BMP 12/27/19 07:29 12/27/19 07:29 INR, PTT INR 1.08 (0.83-1.09) 12/26/19 09:50 Assessment/Plan 39 yo lady with h/o of mild intermittent asthma, s/p gastric sleeve (over 1 yr ago; completed all phases) who presents today with 1 day of R ankle pain. sepsis asthma pain erythema of the foot plan continue abx elevation of leg ortho on case cx negative so far
[2019-12-27] MEDS ORDERED: PNEUMOC 13-VAL CONJ-DIP CRM/PF 0.5 ML DISP.SYRIN IM ONE (13:08)
[2019-12-27] MEDS ORDERED: PNEUMOCOCCAL 23 VACCINE 0.5 ML VIAL IM ONE (15:00)
--- NOTE | 2019-12-27 16:23 | PN ---
Physical Exam: SUBJECTIVE: Patient seen and examined. Improved R ankle erythema, edema. Increased ROM OBJECTIVE: Vital Signs Period Temp Pulse Resp BP Sys/Koch Pulse Ox Last 24 Hr 97.8 F-98.5 F 63-78 16-18 113-156/60-85 97-100 GENERAL: The patient is awake, alert, and fully oriented, in no acute distress. HEAD: Normal with no signs of trauma. EYES: PERRL, extraocular movements intact, sclera anicteric, conjunctiva clear. No ptosis. ENT: Ears normal, nares patent, oropharynx clear without exudates, moist mucous membranes. NECK: Trachea midline, full range of motion, supple. LUNGS: Breath sounds equal, clear to auscultation bilaterally, no wheezes, no crackles, no accessory muscle use. HEART: Regular rate and rhythm, S1, S2 without murmur, rub or gallop. ABDOMEN: Soft, nontender, nondistended, normoactive bowel sounds, no guarding, no rebound, no hepatosplenomegaly, no masses. EXTREMITIES: R ankle joint effusion, tender to palpation. Diminished ROM in all directions due to pain/effusion but no structural deformities. Improved from day prior. NEUROLOGICAL: Cranial nerves II through XII grossly intact. Normal speech, gait not observed. PSYCH: Normal mood, normal affect. SKIN: Warm, dry, normal turgor, no rashes or lesions noted Laboratory Results - last 24 hr 12/25/19 12/27/19 12/27/19 06:30 07:29 07:29 WBC 9.6 RBC 3.97 Hgb 12.9 Hct 37.2 MCV 93.5 MCH 32.5 MCHC 34.7 RDW 13.4 Plt Count 225 MPV 8.4 Absolute Neuts (auto) 5.5 Neutrophils % 56.8 Lymphocytes % 33.5 Monocytes % 5.5 Eosinophils % 3.6 Basophils % 0.6 Nucleated RBC % 0 Sodium 139 Potassium 4.4 Chloride 105 Carbon Dioxide 31 Anion Gap 3 L BUN 10.2 Creatinine 0.7 Est GFR (CKD-EPI)AfAm 125.61 Est GFR (CKD-EPI)NonAf 108.38 Random Glucose 84 Calcium 8.6 Phosphorus 3.7 Magnesium 2.2 Urine HCG, Qual COVID-19 ([facility]) Not detected 12/27/19 11:03 WBC RBC Hgb Hct MCV MCH MCHC RDW Plt Count MPV Absolute Neuts (auto) Neutrophils % Lymphocytes % Monocytes % Eosinophils % Basophils % Nucleated RBC % Sodium Potassium Chloride Carbon Dioxide Anion Gap BUN Creatinine Est GFR (CKD-EPI)AfAm Est GFR (CKD-EPI)NonAf Random Glucose Calcium Phosphorus Magnesium Urine HCG, Qual Negative COVID-19 ([facility]) Active Medications Generic Name Dose Route Start Last Admin Trade Name Freq PRN Reason Stop Dose Admin Acetaminophen 650 mg 12/27/19 10:21 12/27/19 10:56 Tylenol - PO 650 mg Q6H PRN Administration Fever Or Pain Piperacillin Sod/Tazobactam 50 mls @ 100 mls/hr 12/26/19 14:30 12/27/19 10:58 Sod 3.375 gm/ Dextrose IVPB 100 mls/hr Q8H-IV VU Administration Protocol Morphine Sulfate 2 mg 12/25/19 13:13 12/27/19 12:01 Morphine Sulfate IVPUSH 2 mg Q4H PRN Administration PAIN LEVEL 7 - 10 ASSESSMENT/PLAN: Pt is a 39 year old F with PMHx of intermittent asthma, s/p gastric sleeve presenting with ankle pain/erythema admitted for sepsis secondary to septic arthritis. #Septic arthritis, monoarticular -sepsis on admission, resolved -synovial fluid analysis with WBC >130k, RBC >50k, negative for crystals -synovial gram stain negative -Denies trauma, IV drug abuse, monogamous relationship -Lyme serology pending -Rocephin/vanc changed to zosyn per ID -Ortho and ID consults appreciated -improving, washouts deferred for continued IV abx due to improvement #Hx of intermittent asthma -albuterol PRN FEN No stnading fluids Monitor electrolytes Low sodium diet PPx Lovenox 40 sq daily Dispo Scar to med surg. Cont rocephin/flagyl. ATTENDING PHYSICIAN STATEMENT I saw and evaluated the patient. I reviewed the resident's note and discussed the case with the resident. I agree with the resident's findings and plan as documented. SUBJECTIVE: OBJECTIVE: ASSESSMENT AND PLAN:
[2019-12-27] MEDS: ENOXAPARIN NA (PORCINE) 40 MG/0.4 ML DISP.SYRIN SQ SCH (17:02)
--- NOTE | 2019-12-27 17:29 | PN ---
Teaching Attending Note Name of Resident: Sadie Morel ATTENDING PHYSICIAN STATEMENT I saw and evaluated the patient. I reviewed the resident's note and discussed the case with the resident. I agree with the resident's findings and plan as documented. SUBJECTIVE: R ankle swelling/erythema/tenderness improving as per patient. no fever/chills. OBJECTIVE: Afebrile, Hemodynamically Stable. Last Vital Signs Temp Pulse Resp BP Pulse Ox 98.2 F 76 18 156/77 97 12/27/19 14:00 12/27/19 14:00 12/27/19 14:00 12/27/19 14:00 12/27/19 14:00 HEENt - Atraumatic, Normocephalic. Heart - S1, S2, RRR Lungs - clear to auscultation Abdomen - Soft, non-tender. Bowel Sounds normal. Extremities - no calf tenderness. R Ankle edema/erythema/tenderness/decreased ROM Laboratory Results - last 24 hr 12/25/19 12/26/19 12/27/19 06:30 07:35 07:29 WBC 9.6 RBC 3.97 Hgb 12.9 Hct 37.2 MCV 93.5 MCH 32.5 MCHC 34.7 RDW 13.4 Plt Count 225 MPV 8.4 Absolute Neuts (auto) 5.5 Neutrophils % 56.8 Lymphocytes % 33.5 Monocytes % 5.5 Eosinophils % 3.6 Basophils % 0.6 Nucleated RBC % 0 Sodium Potassium Chloride Carbon Dioxide Anion Gap BUN Creatinine Est GFR (CKD-EPI)AfAm Est GFR (CKD-EPI)NonAf Random Glucose Calcium Phosphorus Magnesium Urine HCG, Qual Lyme Screen IgG & IgM <0.91 COVID-19 ([facility]) Not detected 12/27/19 12/27/19 07:29 11:03 WBC RBC Hgb Hct MCV MCH MCHC RDW Plt Count MPV Absolute Neuts (auto) Neutrophils % Lymphocytes % Monocytes % Eosinophils % Basophils % Nucleated RBC % Sodium 139 Potassium 4.4 Chloride 105 Carbon Dioxide 31 Anion Gap 3 L BUN 10.2 Creatinine 0.7 Est GFR (CKD-EPI)AfAm 125.61 Est GFR (CKD-EPI)NonAf 108.38 Random Glucose 84 Calcium 8.6 Phosphorus 3.7 Magnesium 2.2 Urine HCG, Qual Negative Lyme Screen IgG & IgM COVID-19 ([facility]AN) Current Medications Generic Name Dose Route Start Last Admin Trade Name Freq PRN Reason Stop Dose Admin Acetaminophen 650 mg 12/27/19 10:21 12/27/19 10:56 Tylenol - PO 650 mg Q6H PRN Administration Fever Or Pain Enoxaparin Sodium 40 mg 12/27/19 16:30 12/27/19 17:02 Lovenox - SQ 40 mg DAILY VU Administration Piperacillin Sod/Tazobactam 50 mls @ 100 mls/hr 12/26/19 14:30 12/27/19 17:11 Sod 3.375 gm/ Dextrose IVPB 100 mls/hr Q8H-IV VU Administration Protocol Morphine Sulfate 2 mg 12/25/19 13:13 12/27/19 12:01 Morphine Sulfate IVPUSH 2 mg Q4H PRN Administration PAIN LEVEL 7 - 10 Home Medications Medication Instructions Recorded NK [No Known Home Medication] 12/25/19 ASSESSMENT AND PLAN: 39 year old female with history of Mild Intermittent Asthma, s/p gastric sleeve (over 1 yr ago; completed all phases), presents with 1 day history of R ankle pain. 1. Septic Arthritis R Ankle Leukocytosis resolved. Afebrile, Hemodynamically Stable. Synovial Fluid Cx negative Joint washout deferred in favor of continued IV Abx therapy as per Orthopedics. Ceftriaxone/Vanco changed to IV Zosyn ID following. 2. Asthma - stable, no evidence of acute exacerbation. DVT Px - Lovenox SQ
[2019-12-28] MEDS ORDERED: DEXTROSE 5%-WATER - 50 ML IVPB ONE ×2 (02:02→09:08)
[2019-12-28] MEDS ORDERED: PIPERACILLIN/TAZOBACTAM 3.375 GM VIAL IVPB ONE ×2 (02:02→09:08)
[2019-12-28] MEDS: PIPERACILLIN/TAZOB 3.375 GM 3.375 GM in DEXTROSE 5%-WATER - 50 ML IVPB SCH ×2 (02:56→10:28)
[2019-12-28] MEDS: MORPHINE SULFATE 2 MG/ML VIAL IVPUSH PRN ×2 (06:06→11:59)
[2019-12-28 08:39] LABS: BASO % 0.9 % (0-2.0); EOS % 3.8 % (0-4.5); HEMATOCRIT 38.7 % (32.4-45.2); HEMOGLOBIN 13.4 GM/dL (10.7-15.3); LYMPH % 30.6 % (8-40); MCH 32.8 pg (25.7-33.7); MCHC 34.8 g/dl (32.0-36.0); MEAN CELL VOLUME 94.3 fl (80-96); MEAN PLT VOLUME 8.2 fl (7.5-11.1); MONO % 7.8 % (3.8-10.2); NEUT % 56.9 % (42.8-82.8); PLATELET COUNT 228 K/MM3 (134-434); RDW 12.8 % (11.6-15.6); WHITE BLOOD COUNT 5.9 K/mm3 (4.0-10.0)
[2019-12-28 08:56] LABS: BLOOD UREA NITROGEN 10.5 mg/dL (7-18); CALCIUM 8.6 mg/dL (8.5-10.1); CREATININE 0.7 mg/dL (0.55-1.3); MAGNESIUM 2.4 mg/dL (1.8-2.4); PHOSPHOROUS 3.9 mg/dL (2.5-4.9); POTASSIUM 4.2 mmol/L (3.5-5.1)
[2019-12-28] MEDS: ENOXAPARIN NA (PORCINE) 40 MG/0.4 ML DISP.SYRIN SQ SCH (10:28)
--- NOTE | 2019-12-28 11:19 | PN ---
Progress Note, Physician History of Present Illness: stable still with pain - Current Medication List Current Medications: Active Medications Acetaminophen (Tylenol -) 650 mg PO Q6H PRN PRN Reason: Fever Or Pain Last Admin: 12/27/19 20:15 Dose: 650 mg Documented by: Enoxaparin Sodium (Lovenox -) 40 mg SQ DAILY VU Last Admin: 12/28/19 10:28 Dose: 40 mg Documented by: Piperacillin Sod/Tazobactam (Sod 3.375 gm/ Dextrose) 50 mls @ 100 mls/hr IVPB Q8H-IV VU; Protocol Last Admin: 12/28/19 10:28 Dose: 100 mls/hr Documented by: Morphine Sulfate (Morphine Sulfate) 2 mg IVPUSH Q4H PRN PRN Reason: PAIN LEVEL 7 - 10 Last Admin: 12/28/19 06:06 Dose: 2 mg Documented by: - Objective Vital Signs: Vital Signs Temperature 98.1 F 12/28/19 06:00 Pulse Rate 74 12/28/19 06:00 Respiratory Rate 18 12/28/19 06:00 Blood Pressure 109/67 12/28/19 06:00 O2 Sat by Pulse Oximetry (%) 99 12/28/19 06:00 Constitutional: Yes: Calm, Mild Distress Cardiovascular: Yes: S1, S2 Respiratory: Yes: Regular, CTA Bilaterally Gastrointestinal: Yes: Normal Bowel Sounds, Soft Musculoskeletal: Yes: Joint Swelling, Other Extremities: Yes: Other Neurological: Yes: Alert, Oriented Psychiatric: Yes: Alert, Oriented Labs: CBC, BMP 12/28/19 07:05 12/28/19 06:00 INR, PTT INR 1.08 (0.83-1.09) 12/26/19 09:50 Assessment/Plan 39 yo lady with h/o of mild intermittent asthma, s/p gastric sleeve (over 1 yr ago; completed all phases) who presents today with 1 day of R ankle pain. sepsis asthma pain erythema of the foot plan continue abx elevation of leg ortho on case cx negative so far will decide further plan
--- NOTE | 2019-12-28 13:03 | PN ---
Progress Note (short form) - Note Progress Note: Ortho Pt seen and examined. Pt continues to improve. Pt feels 50% better. Selected Entries 12/28/19 06:00 Temperature 98.1 F Pulse Rate 74 Respiratory 18 Rate Blood Pressure 109/67 Laboratory Tests 12/28/19 07:05 WBC 5.9 Hgb 13.4 Hct 38.7 Plt Count 228 decr erythema, decr swelling, incr rom, decr pain, calf soft, nt, nvi cultures neg to date a/p abx as per ID PT pain control d/c planning d/w Dr. Lugo
--- NOTE | 2019-12-28 14:12 | PN ---
Teaching Attending Note Name of Resident: Sadie Morel ATTENDING PHYSICIAN STATEMENT I saw and evaluated the patient. I reviewed the resident's note and discussed the case with the resident. I agree with the resident's findings and plan as documented. SUBJECTIVE: R ankle swelling/erythema/tenderness improving as per patient. No fever/chills. Able to weight bear with crutches. OBJECTIVE: Afebrile, Hemodynamically Stable. Last Vital Signs Temp Pulse Resp BP Pulse Ox 98.1 F 74 18 109/67 99 12/28/19 06:00 12/28/19 06:00 12/28/19 06:00 12/28/19 06:00 12/28/19 06:00 Heart - S1, S2, RRR Lungs - clear to auscultation Abdomen - Soft, non-tender. Bowel Sounds normal. Extremities - no calf tenderness. Some improvement in R Ankle edema/erythema/tenderness/decreased ROM Laboratory Results - last 24 hr 12/26/19 12/26/19 12/28/19 07:35 13:57 06:00 WBC RBC Hgb Hct MCV MCH MCHC RDW Plt Count MPV Absolute Neuts (auto) Neutrophils % Lymphocytes % Monocytes % Eosinophils % Basophils % Nucleated RBC % Sodium 139 Potassium 4.2 Chloride 104 Carbon Dioxide 30 Anion Gap 5 L BUN 10.5 Creatinine 0.7 Est GFR (CKD-EPI)AfAm 125.61 Est GFR (CKD-EPI)NonAf 108.38 Random Glucose 81 Calcium 8.6 Phosphorus 3.9 Magnesium 2.4 Lyme Screen IgG & IgM <0.91 C. trachomatis ([facility]) Negative N.gonorrhoeae DNA ([facility]) Negative T. vaginalis ([facility]) Negative 12/28/19 07:05 WBC 5.9 RBC 4.10 Hgb 13.4 Hct 38.7 MCV 94.3 MCH 32.8 MCHC 34.8 RDW 12.8 Plt Count 228 MPV 8.2 Absolute Neuts (auto) 3.3 Neutrophils % 56.9 Lymphocytes % 30.6 Monocytes % 7.8 Eosinophils % 3.8 Basophils % 0.9 Nucleated RBC % 0 Sodium Potassium Chloride Carbon Dioxide Anion Gap BUN Creatinine Est GFR (CKD-EPI)AfAm Est GFR (CKD-EPI)NonAf Random Glucose Calcium Phosphorus Magnesium Lyme Screen IgG & IgM C. trachomatis ([facility]) N.gonorrhoeae DNA ([facility]) T. vaginalis ([facility]) Current Medications Generic Name Dose Route Start Last Admin Trade Name Luisq PRN Reason Stop Dose Admin Acetaminophen 650 mg 12/27/19 10:21 12/27/19 20:15 Tylenol - PO 650 mg Q6H PRN Administration Fever Or Pain Piperacillin Sod/Tazobactam 50 mls @ 100 mls/hr 12/26/19 14:30 12/28/19 10:28 Sod 3.375 gm/ Dextrose IVPB 100 mls/hr Q8H-IV VU Administration Protocol Home Medications Medication Instructions Recorded Amoxicillin/Potassium Clav 1 each PO BID 7 Days #14 tablet 12/28/19 [Augmentin 875-125 Tablet] ASSESSMENT AND PLAN: 39 year old female with history of Mild Intermittent Asthma, s/p gastric sleeve (over 1 yr ago; completed all phases), presents with 1 day history of R ankle pain. 1. Suspected septic Arthritis R Ankle, unclear Dx at this time - possible hemarthrosis vs bloody tap Leukocytosis resolved. Afebrile, Hemodynamically Stable. Synovial Fluid Cx negative Joint washout deferred in favor of continued Abx therapy as per Orthopedics. Ceftriaxone/Vanco initially changed to IV Zosyn - patient cleared for transition to oral Augmentin for an additional week as recommended by ID Medically stable for discharge with crutches. 2. Asthma - stable, no evidence of acute exacerbation.
--- NOTE | 2019-12-28 14:57 | DS ---
Physical Exam: SUBJECTIVE: Patient seen and examined. Improved ankle pain/swelling in R ankle. OBJECTIVE: Vital Signs Period Temp Pulse Resp BP Sys/Koch Pulse Ox Last 24 Hr 97.9 F-98.7 F 61-79 16-18 109-123/67-77 98-100 PHYSICAL EXAM GENERAL: The patient is awake, alert, and fully oriented, in no acute distress. HEAD: Normal with no signs of trauma. EYES: PERRL, extraocular movements intact, sclera anicteric, conjunctiva clear. ENT: Ears normal, nares patent, oropharynx clear without exudates, moist mucous membranes. NECK: Trachea midline, full range of motion, supple. LUNGS: Breath sounds equal, clear to auscultation bilaterally, no wheezes, no crackles, no accessory muscle use. HEART: Regular rate and rhythm, S1, S2 without murmur, rub or gallop. ABDOMEN: Soft, nontender, nondistended, normoactive bowel sounds, no guarding, no rebound, no hepatosplenomegaly, no masses. EXTREMITIES: 2+ pulses, well-perfused. Slightly warm, improved edema and ROM in R ankle. NEUROLOGICAL: Cranial nerves II through XII grossly intact. Normal speech, gait not observed. PSYCH: Normal mood, normal affect. SKIN: Warm, dry, normal turgor, no rashes or lesions noted. LABS Laboratory Results - last 24 hr 12/26/19 12/26/19 12/28/19 07:35 13:57 06:00 WBC RBC Hgb Hct MCV MCH MCHC RDW Plt Count MPV Absolute Neuts (auto) Neutrophils % Lymphocytes % Monocytes % Eosinophils % Basophils % Nucleated RBC % Sodium 139 Potassium 4.2 Chloride 104 Carbon Dioxide 30 Anion Gap 5 L BUN 10.5 Creatinine 0.7 Est GFR (CKD-EPI)AfAm 125.61 Est GFR (CKD-EPI)NonAf 108.38 Random Glucose 81 Calcium 8.6 Phosphorus 3.9 Magnesium 2.4 Lyme Screen IgG & IgM <0.91 C. trachomatis ([facility]) Negative N.gonorrhoeae DNA ([facility]) Negative T. vaginalis ([facility]) Negative 12/28/19 07:05 WBC 5.9 RBC 4.10 Hgb 13.4 Hct 38.7 MCV 94.3 MCH 32.8 MCHC 34.8 RDW 12.8 Plt Count 228 MPV 8.2 Absolute Neuts (auto) 3.3 Neutrophils % 56.9 Lymphocytes % 30.6 Monocytes % 7.8 Eosinophils % 3.8 Basophils % 0.9 Nucleated RBC % 0 Sodium Potassium Chloride Carbon Dioxide Anion Gap BUN Creatinine Est GFR (CKD-EPI)AfAm Est GFR (CKD-EPI)NonAf Random Glucose Calcium Phosphorus Magnesium Lyme Screen IgG & IgM C. trachomatis ([facility]) N.gonorrhoeae DNA ([facility]) T. vaginalis ([facility]) HOSPITAL COURSE: Date of Admission:12/25/19 Date of Discharge: 12/28/19 Discharge Summary Problems reviewed: Yes Reason For Visit: INFECTION OF JOINT Condition: Stable - Instructions Diet, Activity, Other Instructions: Your visit: You were admitted to the hospital for a swollen right ankle. You were treated with antibiotics with improvement of your symptoms. Medications: -Take the antibiotic Augmentin two times per day for 7 days -Tylenol over the counter as needed for pain; Follow-ups: -Infectious disease specialist Dr. Archibald in 1 week -Orthopedic surgeon Dr. Lugo in 2 weeks -Primary care Dr. Carmona in 2 weeks. Additional instructions: -Continue to use crutches to ambulate if needed. -Keep your right ankle elevated when not ambulating. -You are being discharged to your home. -Please return to the Emergency Department if you experience worsening pain, fevers, chills or if you experience any worsening, new or concerning symptoms. Referrals: Rick Archibald MD [Staff Physician] - 1 Week Yaya Lugo MD [Staff Physician] - 2 Weeks Janie Carmona MD [Primary Care Provider] - 2 Weeks Disposition: HOME - Home Medications Comprehensive Discharge Medication List: Ambulatory Orders Amoxicillin/Potassium Clav [Augmentin 875-125 Tablet] 1 each PO BID 7 Days #14 tablet 12/28/19 ATTENDING PHYSICIAN STATEMENT I saw and evaluated the patient. I reviewed the resident's note and discussed the case with the resident. I agree with the resident's findings and plan as documented. SUBJECTIVE: OBJECTIVE: ASSESSMENT AND PLAN:
[2019-12-28 15:00] VITALS: BP 120/89; PULSE 79; TEMP 98.7
== END 2019-12-28 16:14 | disposition home or self-care (01) | DRG 344 ==
LOC: JER 01:05 → JERBED 13:07 → J5S 12-26 02:18
PROVIDERS: ADMIT Internal Medicine
PROC: 0S9C3ZX Drainage of Right Knee Joint, Percutaneous Approach, Diagnostic (ICD-10-PCS; principal; 2019-12-25)
DX: M00.9 Pyogenic arthritis, unspecified (principal); D72.829 Elevated white blood cell count, unspecified; J45.20 Mild intermittent asthma, uncomplicated; F17.210 Nicotine dependence, cigarettes, uncomplicated; Z98.84 Bariatric surgery status; M25.471 Effusion, right ankle
CPT/HCPCS: 36415; 71045-TC-FY; 73610-TC-RT-FY; 73630-TC-RT-FY; 80048; 80053; 83735; 84100; 84550; 84703; 85025; 85027; 85610; 85651; 86140; 86618; 87040; 87070; 87075; 87205; 87491; 87591; 87661; 89060; 90732; 93005; 93010; 93971-TC; 97116-GP; 97162-GP; 99285-25; G0009; U0003

== ENCOUNTER 2022-06-12 19:40 | Emergency (ER) | payer OTHER ==
[2022-06-12 20:07] VITALS: BP 146/92; PULSE 87; RESP 18; TEMP 98; BMI 32.2
[2022-06-12] MEDS ORDERED: LIDOCAINE PATCH REMOVAL MC SCH (22:00)
[2022-06-12] MEDS ORDERED: LIDOCAINE 5% TOPICAL PATCH TP ONE (22:09)
[2022-06-12] MEDS ORDERED: METHOCARBAMOL 500 MG TABLET PO ONE (22:09)
[2022-06-12] MEDS ORDERED: IBUPROFEN 600 MG TABLET (FP) PO ONE ×2 (22:09→22:12)
[2022-06-12] MEDS ORDERED: LIDOCAINE 5% TOPICAL PATCH ONE (22:12)
[2022-06-12] MEDS ORDERED: METHOCARBAMOL 500 MG TABLET ONE (22:12)
[2022-06-12 22:38] LABS: PH,URINE 6.5 (5.0-8.0); URINE APPEARANCE CLEAR; URINE BILIRUBIN NEGATIVE (NEGATIVE); URINE COLOR YELLOW; URINE GLUCOSE (UA) NEGATIVE (NEGATIVE); URINE KETONE TRACE (NEGATIVE); URINE LEUK ESTERASE NEGATIVE (NEGATIVE); URINE NITRITE NEGATIVE (NEGATIVE); URINE PROTEIN NEGATIVE (NEGATIVE)
[2022-06-12 22:40] LABS: HCG,QUALITATIVE URINE Negative
== END 2022-06-12 22:48 | disposition home or self-care (01) ==
LOC: JERFT 19:40 → JER 19:40 → JERFT 22:48
DX: M54.42 Lumbago with sciatica, left side (principal)
CPT/HCPCS: 81003; 84703; 99283-25

== ENCOUNTER 2022-09-03 20:50 | Emergency (ER) | payer OTHER ==
[2022-09-03 21:04] VITALS: BP 132/85; PULSE 110; RESP 20; TEMP 97.8; BMI 33.2
[2022-09-03] MEDS ORDERED: predniSONE 20 MG TABLET (UD) PO ONE (22:30)
[2022-09-03] MEDS ORDERED: ALBUTEROL SO4 2.5/IPRATROPIUM 0.5 INH SOL 3 ML VIAL.NEB. NEB ONE ×2 (22:30→22:42)
[2022-09-03] MEDS ORDERED: guaiFENesin 200 MG/10 ML 10 ML UNIT-DOSE CUPS PO ONE (22:31)
[2022-09-03] MEDS ORDERED: guaiFENesin/D-METHORPHAN HB 10 ML UNIT-DOSE CUPS ONE (22:41)
[2022-09-03] MEDS ORDERED: predniSONE 20 MG TABLET (UD) ONE (22:42)
== END 2022-09-03 23:58 | disposition home or self-care (01) ==
LOC: JER 20:50 → JERFT 20:50
PROC: 3E0F7GC Introduction of Other Therapeutic Substance into Respiratory Tract, Via Natural or Artificial Opening (ICD-10-PCS; principal; 2022-09-03)
DX: J45.909 Unspecified asthma, uncomplicated (principal); R05.9 Cough, unspecified; R09.81 Nasal congestion; J40 Bronchitis, not specified as acute or chronic
CPT/HCPCS: 0241U-QW; 71046-TC-FY; 99284-25

== ENCOUNTER 2023-02-15 15:36 | Emergency (ER) | payer SELFPAY ==
[2023-02-15 15:45] VITALS: BP 146/91; PULSE 94; RESP 18; TEMP 98.4; BMI 34.2
[2023-02-15] MEDS ORDERED: ACETAMINOPHEN 500 MG TABLET (FP) PO ONE (17:07)
[2023-02-15] MEDS ORDERED: ACETAMINOPHEN 500 MG TABLET (FP) ONE (17:11)
== END 2023-02-15 17:27 | disposition home or self-care (01) ==
LOC: JER 15:36 → JERFT 15:36
DX: R22.31 Localized swelling, mass and lump, right upper limb (principal); M79.641 Pain in right hand
CPT/HCPCS: 73130-TC-RT-FY; 99283-25